=== PATIENT | female | born 1965 | race Caucasian/White ===

== ENCOUNTER 2017-02-19 10:11 | Emergency (ER) | payer BC ==
[2017-02-19] MEDS ORDERED: Ketorolac INJ* 30 MG/ML 1 ML VIAL IV ONE (10:52)
[2017-02-19] MEDS ORDERED: NS 0.9% 1000 ML* 1,000 ML IV ONE (10:52)
[2017-02-19 11:25] LABS: Hematocrit 44 % (35-47); Hemoglobin 14.7 g/dl (12.0-16.0); Mean Corpuscular HGB Conc 33 g/dl (31-36); Mean Corpuscular Hemoglobin 30 pg (27-31); Mean Corpuscular Volume 91 fL (80-97); Mean Platelet Volume 9 um3 (7.4-10.4); Red Blood Count 4.86 10^6/ul (4.0-5.4); Red Cell Distribution Width 13 % (10.5-15); White Blood Count 4.7 10^3/ul (3.5-10.8)
[2017-02-19] MEDS ORDERED: Ondansetron INJ* 2 MG/ML VIAL IV ONE (11:28)
--- NOTE | 2017-02-19 11:28 | ED ---
Abdominal Pain/Female - HPI Summary HPI Summary: Patient presents with left flank pain from Dr. Troncoso's office after a visit and exam today. She has had pain for three days that has increased. She has a history of kidney stones and thinks this could be another, but is also concerned that she has pain in her LLQ as well. She denies fever, chills, N/V/D , or blood in her urine. No fever, chills, SOB, or CP. - History of Current Complaint Chief Complaint: EDFlankPain Stated Complaint: LT FLANK PAIN Time Seen by Provider: 02/19/17 10:16 Hx Obtained From: Patient Hx Last Menstrual Period: 2013 ?: No Onset/Duration: Gradual Onset, Lasting Days, Still Present Timing: Constant Severity Initially: Moderate Severity Currently: Severe Pain Intensity: 8 Location: Discrete At: LLQ, Flank Radiates: No Character: Sharp Aggravating Factor(s): Nothing Alleviating Factor(s): Nothing Associated Signs and Symptoms: Positive: Nausea. Negative: Blood in Stool, Urinary Symptoms, Decreased Appetite, Vaginal Bleeding Allergies/Adverse Reactions: Allergies Allergy/AdvReac Type Severity Reaction Status Date / Time Codeine Allergy Severe RASH, Verified 02/19/17 10:19 SWELLING Iodinated Contrast Media Allergy Severe Difficulty Verified 02/19/17 10:19 [CONTRAST DYE] Breathing Latex Allergy Severe Hives Verified 02/19/17 10:19 Penicillins Allergy Severe Anaphylatic Verified 02/19/17 10:19 Shock Morphine Allergy Intermediate Rash Verified 02/19/17 10:19 Meclizine Allergy Anxiety Verified 02/19/17 10:19 Sulfa Antibiotics Allergy Rash And Verified 02/19/17 10:19 Itching Metoclopramide [From Reglan] AdvReac Anxiety Verified 02/19/17 10:19 Prochlorperazine AdvReac Anxiety Verified 02/19/17 10:19 [From Compazine] PMH/Surg Hx/FS Hx/Imm Hx Endocrine/Hematology History: Reports: Hx Thyroid Disease - ON DAILY MEDS Denies: Hx Anticoagulant Therapy, Hx Diabetes Cardiovascular History: Denies: Hx Congestive Heart Failure, Hx Deep Vein Thrombosis, Hx Hypertension , Hx Myocardial Infarction, Hx Pacemaker/ICD Respiratory History: Reports: Hx Asthma - INHALER PRN Denies: Hx Chronic Obstructive Pulmonary Disease (COPD), Hx Lung Cancer, Hx Pneumonia, Hx Pulmonary Embolism GI History: Denies: Hx Gall Bladder Disease, Hx Gastrointestinal Bleed, Hx Ulcer, Hx Urosepsis History: Reports: Hx Kidney Stones - HX OF Denies: Hx Renal Disease Comment Only: Other Problems/Disorders - DENIES ANY PAIN OR PROBLEMS R/T KIDNEY STONES Musculoskeletal History: Denies: Hx Osteoporosis Sensory History: Reports: Hx Contacts or Glasses - GLASSES Denies: Hx Hearing Aid Opthamlomology History: Reports: Hx Contacts or Glasses - GLASSES Neurological History: Reports: Hx Migraine - Hx OF, NONE IN YEARS, Other Neuro Impairments/Disorders - ADD Denies: Hx Dementia, Hx Seizures, Hx Transient Ischemic Attacks (TIA) Psychiatric History: Reports: Hx Anxiety, Hx Depression - daily meds Denies: Hx Panic Disorder, Hx Schizophrenia, Hx Bipolar Disorder - Surgical History Surgery Procedure, Year, and Place: 2013 [facility]&C [facility]. 2002 [place]. 2008 [place] [facility]. [place] [facility] [place] REMOVED [facility]. hysterectomy 2013. R ULNAR NERVE TRANSPOSITION 09/06/15 [facility]. LEFT LEG VEIN SURGERY 2012. 07/2014partial hysterectomy [facility]. 08/22/2014 removal of cyst and nerve on rt wrist [facility]. 2006 [place] [facility] [place] RT ELBOW ULNAR NERVE DECOMPRESSION [facility] Hx Anesthesia Reactions: No - Immunization History Date of Tetanus Vaccine: 2011 Date of Influenza Vaccine: None Infectious Disease History: No Infectious Disease History: Denies: Hx Clostridium Difficile, Hx Hepatitis, Hx Human Immunodeficiency Virus (HIV), Hx of Known/Suspected MRSA, Hx Shingles, Hx Tuberculosis, Hx Known/ Suspected VRE, Hx Known/Suspected VRSA, History Other Infectious Disease, Traveled Outside the [place] in Last 30 Days - Family History Known Family History: Positive: Cardiac Disease, Hypertension, Other - CVA - Social History Occupation: Unemployed Lives: With Family Alcohol Use: Daily Alcohol Amount: 1 or more glass wine/DAY Hx Substance Use: No Substance Use Type: Reports: None Hx Tobacco Use: Yes Smoking Status (MU): Former Smoker Type: Cigarettes Amount Used/How Often: 1PPD+ 5 YRS Length of Time of Smoking/Using Tobacco: 5 years Have You Smoked in the Last Year: No Review of Systems Negative: Fever, Chills Positive: Abdominal Pain - LLQ, Nausea. Negative: Vomiting, Diarrhea Positive: flank pain. Negative: dysuria, discharge, frequency, hematuria All Other Systems Reviewed And Are Negative: Yes Physical Exam Triage Information Reviewed: Yes Vital Signs On Initial Exam: Initial Vitals Temp Pulse Resp BP Pulse Ox 98.3 F 85 18 159/100 100 02/19/17 10:20 02/19/17 10:20 02/19/17 10:20 02/19/17 10:20 02/19/17 10:20 Vital Signs Reviewed: Yes Appearance: Positive: Well-Appearing, Pain Distress, Thin Skin: Positive: Warm, Skin Color Reflects Adequate Perfusion, Dry, Soft Head/Face: Positive: Normal Head/Face Inspection Eyes: Positive: EOMI, ERIK, Conjunctiva Clear ENT: Positive: Hearing grossly normal, Pharynx normal Neck: Positive: Supple, Nontender, No Lymphadenopathy Respiratory/Lung Sounds: Positive: Clear to Auscultation, Breath Sounds Present Cardiovascular: Positive: RRR Abdomen Description: Positive: Soft, CVA Tenderness (L) - mild, Guarding. Negative: Nontender - LLQ pain, CVA Tenderness (R), Distended, Hepatomegaly, Pulsatile Mass, Splenomegaly Bowel Sounds: Positive: Present Musculoskeletal: Positive: Strength/ROM Intact. Negative: Edema Left, Edema Right Neurological: Positive: Sensory/Motor Intact, Alert, Oriented to Person Place, Time, NV Bundle Intact Distally, Normal Gait Psychiatric: Positive: Affect/Mood Appropriate AVPU Assessment: Alert - Stephan Coma Scale Coma Scale Total: 15 Diagnostics - Vital Signs Vital Signs Temp Pulse Resp BP Pulse Ox 02/19/17 10:41 98.0 F 85 20 159/100 100 02/19/17 10:20 98.3 F 85 18 159/100 100 - Laboratory Result Diagrams: 02/19/17 11:00 02/19/17 11:00 Lab Statement: Any lab studies that have been ordered have been reviewed, and results considered in the medical decision making process. - Radiology No standard instances Xray Interpretation: No Acute Changes Radiology Interpretation Completed By: Radiologist - CT No standard instances CT Interpretation: No Acute Changes CT Interpretation Completed By: Radiologist Re-Evaluation - Re-Evaluation First Eval Re-Evaluation Time: 11:30 Change: Unchanged Comment: pain has not improved. Patient mentions that a medication that starts with a "D" always helps with her pain. Second Eval Re-Evaluation Time: 12:25 Change: Improved Comment: Patient resting comfortably in bed. Abdominal Pain Fem Course/Dx - Course Course Of Treatment: I discussed this patient's situation with Dr. Troncoso and Dr. Gaviria. The patient's labs and studies are negative for acute changes, except for a positive urine for a UTI. She will be treated and discharged home to follow-up with her PCP. - Diagnoses Differential Diagnosis: Positive: Bowel Obstruction, Constipation, Diverticulitis, Hepatitis, Irritable Bowel Syndrome, Ovarian Cyst, Urinary Tract Infection Provider Diagnoses: Abdominal pain - Provider Notifications Discussed Care Of Patient With: Dr. Troncoso, general surgery; Dr. Gaviria, ED attending. Discharge - Discharge Plan Condition: Stable Disposition: HOME Prescriptions: Nitrofurantoin Monohyd Macro [Macrobid] 100 mg PO BID #9 cap Patient Education Materials: Urinary Tract Infection in Women (ED) Referrals: Ignacio Garcias MD [Primary Care Provider] - Additional Instructions: Your CT scan, lab work and x-ray were negative for acute findings today. Please take the antibiotics prescribed to treat your urinary tract infection and call your PCP today for a follow-up appointment in 2-3 days. Return to the emergency department if symptoms worsen.
[2017-02-19] MEDS ORDERED: HYDROmorphone* 1 MG/ML 1 ML SYR IV SLOW PU ONE (11:31)
[2017-02-19 11:36] LABS: Albumin 4.6 g/dL (3.2-5.2); BUN/Creatinine Ratio 17.8 (8-20); Calcium 9.5 mg/dL (8.6-10.3); EGFR African American 85.6 (>60); EGFR Non-African American 66.5 (>60); Globulin 2.9 g/dL (2-4); Potassium 4.8 mmol/L (3.5-5.0); Total Bilirubin 1.2 mg/dL (0.2-1.0); Total Protein 7.5 g/dL (6.4-8.9)
[2017-02-19 12:34] LABS: Urine Bacteria Absent (Absent); Urine Bilirubin Negative (Negative); Urine Glucose Negative (Negative); Urine Nitrite Positive (Negative)
--- NOTE | 2017-02-19 13:01 | RAD ---
CLINICAL HISTORY: Left flank pain COMPARISON: January 03, 2016 TECHNIQUE: Multiple contiguous axial CT scans were obtained of the abdomen and pelvis, without intravenous contrast enhancement. Coronal and sagittal multiplanar reformations are submitted for review. Oral contrast was not administered. FINDINGS: The study is limited by the lack of intravenous contrast. This limits evaluation of the solid organs and vasculature. LUNG BASES: The lung bases are clear. LIVER: The liver is normal in shape, size, contour, and attenuation. BILE DUCTS: There is no intrahepatic or extrahepatic biliary dilatation. GALLBLADDER: The gallbladder is normal, without pericholecystic inflammatory change. PANCREAS: The pancreas is normal, without mass or ductal dilatation. SPLEEN: Normal in size and appearance. UPPER GI TRACT: Evaluation of the gastrointestinal tract is limited by incomplete gastric distention. The upper GI tract is unremarkable. SMALL BOWEL AND MESENTERY: The small bowel is normal in contour, course, and caliber. There is no obstruction or dilatation. COLON: The colon is normal in contour, course, caliber. There is no pericolonic inflammatory change. ADRENALS: Normal bilaterally. KIDNEYS: There are multiple renal cortical defects. There are dystrophic calcific lesion versus small calyceal stones of the left kidney. These are stable in the previous examination. There is no appreciable hydronephrosis or obvious ureteral stone BLADDER: The bladder is incompletely distended but is grossly normal. PELVIC ORGANS: The pelvic organs are not visualized. AORTA: The aorta is normal. IVC: Unremarkable LYMPH NODES: There is no lymphadenopathy by size criteria. ABDOMINAL WALL: There is no evidence for abdominal wall hernia. There is postsurgical change to the right inguinal region suggestive of previous hernia repair BONES AND SOFT TISSUES: There are mild diffuse degenerative changes. OTHER: None IMPRESSION: STABLE SMALL RENAL CALCULI ON THE LEFT WITHOUT HYDRONEPHROSIS.
[2017-02-19] MEDS ORDERED: Ciprofloxacin TAB* 500 MG PO ONE (13:05)
[2017-02-19] MEDS ORDERED: Nitrofurantoin Macrocrystals* 50 MG CAP PO ONE (13:16)
--- NOTE | 2017-02-19 14:42 | RAD ---
Indication: Abdominal pain, small bowel obstruction Flat and upright views of the abdomen demonstrates no free air. Moderately distended loops of small bowel are noted. No free air is identified. Patient is status post cholecystectomy. IMPRESSION: Mildly distended loops of small bowel without air-fluid levels.
[2017-02-19 14:57] VITALS: BP 126/72
--- NOTE | 2017-02-22 10:19 | PN ---
Progress Note - Progress Note Note: Urine culture grew E.Coli Patient placed on Macrobid. Sensitive to medication. Nothing further at this time. Penelope Ortiz PA-C
== END 2017-02-19 14:56 | disposition home or self-care (01) ==
LOC: ED 10:11
DX: R10.32 Left lower quadrant pain (principal); F17.210 Nicotine dependence, cigarettes, uncomplicated; Z88.5 Allergy status to narcotic agent; Z88.0 Allergy status to penicillin; Z88.2 Allergy status to sulfonamides; Z87.442 Personal history of urinary calculi; J45.909 Unspecified asthma, uncomplicated; F41.9 Anxiety disorder, unspecified; F32.9 Major depressive disorder, single episode, unspecified; Z87.891 Personal history of nicotine dependence; E07.9 Disorder of thyroid, unspecified; N20.0 Calculus of kidney
CPT/HCPCS: 36415; 74000; 74176; 80053; 81003; 81015; 85025; 87077; 87086; 87186; 96360; 96374; 96375; 99282; A9270-GY; J1170; J1885; J2405

== ENCOUNTER 2017-04-18 07:35 | Emergency (ER) | payer BC ==
[2017-04-18 07:43] VITALS: BP 127/97
--- NOTE | 2017-04-18 08:30 | UC ---
Skin Complaint HPI - History of Current Complaint Hx Obtained From: Patient Hx Last Menstrual Period: 2013 ?: No Onset/Duration: Gradual Onset - started 2-3 days ago with poison josey on L lower leg, after scratching skin it looks red and swollen today. is becoming more painful Onset Severity: Mild Current Severity: Moderate Location: Discrete - L lower ant leg Character: Swelling, Pruritus, Pain, Redness Aggravating: Touch Alleviating: Nothing Associated Signs & Symptoms: Positive: Negative <Rl Turner - Last Filed: 04/18/17 08:32> <Terri Cano - Last Filed: 04/18/17 08:58> - History of Current Complaint Chief Complaint: UCLowerExtremity Stated Complaint: SWOLLEN LEG - Allergy/Home Medications Allergies/Adverse Reactions: Allergies Allergy/AdvReac Type Severity Reaction Status Date / Time Codeine Allergy Severe RASH, Verified 02/19/17 10:19 SWELLING Iodinated Contrast Media Allergy Severe Difficulty Verified 02/19/17 10:19 [CONTRAST DYE] Breathing Latex Allergy Severe Hives Verified 02/19/17 10:19 Penicillins Allergy Severe Anaphylatic Verified 02/19/17 10:19 Shock Morphine Allergy Intermediate Rash Verified 02/19/17 10:19 Meclizine Allergy Anxiety Verified 02/19/17 10:19 Sulfa Antibiotics Allergy Rash And Verified 02/19/17 10:19 Itching Metoclopramide [From Reglan] AdvReac Anxiety Verified 02/19/17 10:19 Prochlorperazine AdvReac Anxiety Verified 02/19/17 10:19 [From Compazine] Review of Systems Constitutional: Negative Skin: Rash Respiratory: Negative Cardiovascular: Negative Gastrointestinal: Negative Neurovascular: Negative Musculoskeletal: Negative Psychological: Negative All Other Systems Reviewed And Are Negative: Yes <Rl Turner - Last Filed: 04/18/17 08:32> PMH/Surg Hx/FS Hx/Imm Hx Previously Healthy: Yes Endocrine History: Thyroid Disease Psychological History: Anxiety, Other - ADHD Other Psychological History: ADHD Other History Of: Negative For: HIV, Hepatitis B, Hepatitis C, Anticoagulant Therapy - Surgical History Surgical History: Yes Surgery Procedure, Year, and Place: 2012 D&C [facility]. 2002 [place]. 2008 left foot surgery [facility]. 2005 TUBAL LIGATION, [facility]. 2005 GALLBLADDER REMOVED [facility]. hysterectomy 2014. R ULNAR NERVE TRANSPOSITION 09/06/15 [facility]. LEFT LEG VEIN SURGERY 2012. 07/2014partial hysterectomy [facility]. 08/22/2014 removal of cyst and nerve on rt wrist [facility]. 2006 UTERAL stents, [facility]. 07/12/15 RT ELBOW ULNAR NERVE DECOMPRESSION [facility] - Family History Known Family History: Positive: Cardiac Disease, Hypertension, Other - CVA - Social History Occupation: Employed Full-time - [employer] center Lives: With Family Alcohol Use: Daily Alcohol Amount: 1 or more glass wine/DAY Substance Use Type: None Smoking Status (MU): Former Smoker Type: Cigarettes Amount Used/How Often: 1PPD+ 5 YRS Length of Time of Smoking/Using Tobacco: 5 years Have You Smoked in the Last Year: No When Did the Patient Quit Smoking/Using Tobacco: 1988 - Immunization History Most Recent Influenza Vaccination: never Most Recent Tetanus Shot: unknown Most Recent Pneumonia Vaccination: never <Rl Turner - Last Filed: 04/18/17 08:32> Physical Exam Triage Information Reviewed: Yes Appearance: Well-Appearing, No Pain Distress, Well-Nourished Vital Signs: Initial Vital Signs Temp 97 F 04/18/17 07:37 Pulse 85 04/18/17 07:37 Resp 16 04/18/17 07:37 BP 127/97 04/18/17 07:37 Pulse Ox 100 04/18/17 07:37 Vital Signs Reviewed: Yes Respiratory Exam: Normal Cardiovascular Exam: Normal Musculoskeletal Exam: Normal Neurological Exam: Normal Psychological Exam: Normal Skin: Positive: rashes - poison josey lower left leg. small area redness and minor swelling anterior lower leg with small abrasion (scratched) poison josey. no streaking or drainage <Rl Turner - Last Filed: 04/18/17 08:32> Vital Signs: Initial Vital Signs Temp 97 F 04/18/17 07:37 Pulse 85 04/18/17 07:37 Resp 04/18/17 07:37 BP 127/97 04/18/17 07:37 Pulse Ox 100 04/18/17 07:37 <Terri Cano - Last Filed: 04/18/17 08:58> Course/Dx - Differential Diagnoses - Skin Complaint Differential Diagnoses: Abscess, Cellulitis, Poison Josey - Diagnoses Provider Diagnoses: poison josey. cellulitis <Rl Turner - Last Filed: 04/18/17 08:32> Discharge <Rl Turner - Last Filed: 04/18/17 08:32> <Terri Cano - Last Filed: 04/18/17 08:58> - Discharge Plan Condition: Stable Disposition: HOME Prescriptions: Clindamycin CAP* [Cleocin 150 MG CAP*] 150 mg PO QID #28 cap Referrals: Ignacio Garcias MD [Primary Care Provider] - 2 Days (for recheck) Additional Instructions: elevate leg and apply warm packs three times daily take antibiotic as directed use benadryl gel to poison josey as directed ibuprofen 600mg every 6 hours as needed for pain Attestation Statement User Type: Provider - I was available for consult. This patient was seen by the [facility]. The patient was not presented to, seen by, or examined by me. -Wilmer <Terri Cano - Last Filed: 04/18/17 08:58>
== END 2017-04-18 08:33 | disposition home or self-care (01) ==
LOC: UCEAST 07:35
DX: L23.7 Allergic contact dermatitis due to plants, except food (principal); L03.116 Cellulitis of left lower limb; Z88.0 Allergy status to penicillin; Z88.2 Allergy status to sulfonamides; Z88.5 Allergy status to narcotic agent; Z91.041 Radiographic dye allergy status; Z91.040 Latex allergy status; E07.9 Disorder of thyroid, unspecified; F41.9 Anxiety disorder, unspecified; F90.9 Attention-deficit hyperactivity disorder, unspecified type; Z90.49 Acquired absence of other specified parts of digestive tract; Z90.710 Acquired absence of both cervix and uterus; Z87.891 Personal history of nicotine dependence
CPT/HCPCS: 99212; G0463

== ENCOUNTER 2017-04-29 12:16 | Emergency (ER) | payer BC ==
--- NOTE | 2017-04-29 12:46 | UC ---
Cardiac HPI - HPI Summary HPI Summary: complain to waking up this morning nasal congestion, sneezing and cough felt short of breath when she was walking up the stairs, used her inhaler -xoponex without relief went to work and started to feel shortness of breath again- can't talk well and completed sentence without getting short of breath used her xopenex inhaler without relief again hears wheezing in her chest , feels some chest over her sternum, a tight heavy feeling, difficult to breath out denies fever but had some chills this morning - took tylenol this morning refuses to take any steroid medication - History of Current Complaint Hx Obtained From: Patient <Janett Dougherty - Last Filed: 04/29/17 14:59> <Terri Cano - Last Filed: 04/30/17 08:12> - History of Current Complaint Chief Complaint: UCRespiratory Stated Complaint: SOB ASTHMA Time Seen by Provider: 04/29/17 12:39 - Allergy/Home Medications Allergies/Adverse Reactions: Allergies Allergy/AdvReac Type Severity Reaction Status Date / Time Codeine Allergy Severe RASH, Verified 04/29/17 12:28 SWELLING Iodinated Contrast Media Allergy Severe Difficulty Verified 04/29/17 12:28 [CONTRAST DYE] Breathing Latex Allergy Severe Hives Verified 04/29/17 12:28 Penicillins Allergy Severe Anaphylatic Verified 04/29/17 12:28 Shock Morphine Allergy Intermediate Rash Verified 04/29/17 12:28 Meclizine Allergy Anxiety Verified 04/29/17 12:28 Sulfa Antibiotics Allergy Rash And Verified 04/29/17 12:28 Itching Metoclopramide [From Reglan] AdvReac Anxiety Verified 04/29/17 12:28 Prochlorperazine AdvReac Anxiety Verified 04/29/17 12:28 [From Compazine] Home Medications: Home Medications Wudxpum-Xsdsldcjiwcuj-Okgenagw [Excedrin Extra Strength 250-250-65 mg] 1 tab PO DAILY PRN 04/29/17 [History Confirmed 04/29/17] PMH/Surg Hx/FS Hx/Imm Hx Previously Healthy: Yes Respiratory History: Asthma Other History Of: Negative For: HIV, Hepatitis B, Hepatitis C, Anticoagulant Therapy - Surgical History Surgical History: Yes Surgery Procedure, Year, and Place: 2012 [place] [facility] [place] 2008 [facility] [place] [facility]. 2005 TUBAL LIGATION, [facility]. 2005 GALLBLADDER REMOVED [facility]. hysterectomy 2013. R ULNAR NERVE TRANSPOSITION 09/06/15 [facility]. LEFT LEG VEIN SURGERY 2012. 07/2014partial hysterectomy [facility]. 08/22/2014 removal of cyst and nerve on rt wrist [facility]. 2006 UTERAL stents, [facility]. 07/12/15 RT ELBOW ULNAR NERVE DECOMPRESSION [facility] - Family History Known Family History: Positive: Cardiac Disease, Hypertension, Diabetes, Other - CVA - Social History Occupation: Employed Full-time Lives: With Family Alcohol Use: Occasionally Alcohol Amount: 1 or more glass wine/DAY Substance Use Type: None Smoking Status (MU): Former Smoker Type: Cigarettes Amount Used/How Often: 1PPD+ 5 YRS Length of Time of Smoking/Using Tobacco: 5 years Have You Smoked in the Last Year: No When Did the Patient Quit Smoking/Using Tobacco: 1988 - Immunization History Most Recent Influenza Vaccination: never Most Recent Tetanus Shot: unknown Most Recent Pneumonia Vaccination: never <Janett Dougherty - Last Filed: 04/29/17 14:59> Review of Systems Constitutional: Chills Skin: Negative Eyes: Negative ENT: Negative Respiratory: Shortness Of Breath, Cough Cardiovascular: Chest Pain Gastrointestinal: Negative Genitourinary: Negative Motor: Negative Neurovascular: Negative Musculoskeletal: Negative Neurological: Negative Psychological: Negative All Other Systems Reviewed And Are Negative: Yes <Janett Dougherty - Last Filed: 04/29/17 14:59> Physical Exam Triage Information Reviewed: Yes Appearance: No Pain Distress, Well-Nourished Vital Signs: Initial Vital Signs Temp 99.2 F 04/29/17 12:24 Pulse 97 04/29/17 12:24 Resp 18 04/29/17 12:24 BP 191/111 04/29/17 12:24 Pulse Ox 100 04/29/17 12:24 Vital Signs Reviewed: Yes Eyes: Positive: Conjunctiva Clear ENT: Positive: Pharyngeal erythema, Nasal congestion, Nasal drainage, TMs normal Dental: Positive: Cervical Lymphadenopathy Respiratory: Positive: Chest non-tender, No accessory muscle use, Respiratory distress, Wheezing - in lower lobes Cardiovascular: Positive: RRR, No Murmur, Pulses Normal, Brisk Capillary Refill Abdomen Description: Positive: Nontender, Soft Bowel Sounds: Positive: Present Musculoskeletal: Positive: No Edema Neurological: Positive: Alert Psychological Exam: Normal Skin Exam: Normal <Janett Dougherty - Last Filed: 04/29/17 14:59> Vital Signs: Initial Vital Signs Temp 99.2 F 04/29/17 12:24 Pulse 97 04/29/17 12:24 Resp 18 04/29/17 12:24 BP 191/111 04/29/17 12:24 Pulse Ox 100 04/29/17 12:24 <Terri Cano - Last Filed: 04/30/17 08:12> Diagnostics - EKG Cardiac Rate: Tachycardia Cardiac Rhythm: Sinus: Normal Ectopy: None <Janett Dougherty - Last Filed: 04/29/17 14:59> Re-Evaluation - Re-Evaluation First Eval Re-Evaluation Time: 14:13 Change: Improved Comment: less wheezing throughout. denies any chest pain /pressure at this time <Janett Dougherty - Last Filed: 04/29/17 14:59> - Assessment/Plan Course Of Treatment: exam completed. pt feels relief of symptoms of shortness of breath and chest pain after albuterol tretament. discussed importance of followup with Dr Garcias and when to seek emergent care - Differential Diagnoses - Chest Pain Differential Diagnosis/HQI/PQRI: Lower Respiratory Infection - Clinical Impression Provider Diagnoses: asthma exacerbation - Physician Notifications Discussed Patient Care With: Terri Cano Time Discussed With Above Provider: 14:21 <Janett Dougherty - Last Filed: 04/29/17 14:59> Discharge <Janett Dougherty - Last Filed: 04/29/17 14:59> <Terri Cano - Last Filed: 04/30/17 08:12> - Discharge Plan Condition: Stable Disposition: HOME Prescriptions: Albuterol HFA INHALER* [Ventolin HFA Inhaler*] 2 puff INH Q4H PRN #1 mdi PRN Reason: Wheezing Patient Education Materials: Asthma (ED), Bronchospasm (ED) Forms: *Work Release Referrals: Ignacio Garcias MD [Primary Care Provider] - Additional Instructions: please make followup appt with Dr Garcias in 1-2 days Use your albuterol inhaler every 4-6 hours when needed for wheezing, shortness of breath or uncontrolled coughing. Increase fluids and rest Take acetaminophen or ibuprofen for fever or pain Please review your discharge instructions. If your symptoms do not improve please call your primary care provider or return to urgent care. Attestation Statement User Type: Provider - I was available for consult. This patient was seen by the [facility]. The patient was not presented to, seen by, or examined by me. -Wilmer <Terri Cano - Last Filed: 04/30/17 08:12>
[2017-04-29] MEDS ORDERED: Levalbuterol 1.25MG/0.5ML NEB INH ONE (12:55)
[2017-04-29] MEDS ORDERED: Levalbuterol 0.63MG/3ML NEB INH ONE (13:12)
[2017-04-29 13:34] VITALS: BP 177/95
[2017-04-29] MEDS ORDERED: Albuterol 2.5 MG/3 ML NEB.SOL* (0.083%) INH ONE (13:39)
== END 2017-04-29 14:29 | disposition home or self-care (01) ==
LOC: UCEAST 12:16
DX: J45.901 Unspecified asthma with (acute) exacerbation (principal); Z87.891 Personal history of nicotine dependence
CPT/HCPCS: 87651; 93005; 99213; A9270-GY; G0463

== ENCOUNTER 2017-08-07 14:57 | Inpatient (IN) | payer BC ==
[2017-08-07] MEDS ORDERED: NS 0.9% 1000 ML* 1,000 ML IV ONE (15:49)
[2017-08-07] MEDS ORDERED: fentaNYL* 50 MCG/ML 2 ML VIAL (100 MCG VIAL) IV SLOW PU ONE ×2 (15:53→17:40)
[2017-08-07] MEDS ORDERED: Ondansetron INJ* 2 MG/ML VIAL IV ONE (15:53)
--- NOTE | 2017-08-07 16:50 | RAD ---
Indication: Syncopal episode. Comparison: April 02, 2016 Technique: Noncontrast CT vertex of skull through foramen magnum. Report: The sulci, ventricles, and basal cisterns are normal for age. Pagan matter white matter differentiation is preserved without evidence for edema. No intra or extra axial hemorrhage, mass, or fluid collection detected. Unchanged minimal calcification at the bilateral basal ganglia. Unremarkable visualized orbital contents. Unremarkable calvarium and skull base. Unremarkable scalp. The visualized paranasal sinuses and mastoid air spaces are clear. IMPRESSION: No acute intracranial process evident.
--- NOTE | 2017-08-07 16:50 | RAD ---
INDICATION: Syncopal episode. COMPARISON: October 14, 2015 CT. TECHNIQUE: Multidetector CT images foramen magnum to lung apices without contrast. Multiplanar reformation. REPORT: Normal vertebral alignment accounting for exam positioning without spondylolisthesis or subluxation at any level. Negative for cervical vertebral body or posterior element fracture. Negative for paravertebral hematoma. Multilevel degenerative spondylosis and mild facet joint osteoarthritis. At C4-C5 there is moderately severe disc space narrowing and mild vertebral endplate osteophytosis. Negative for significant central canal stenosis. Uncinate process spurring results in mild RIGHT and moderate LEFT foraminal stenosis. At C5-C6 there is moderately severe disc space narrowing. Mild dorsal disc osteophyte complex. Negative for significant central canal stenosis. Uncinate process spurring and facet joint osteoarthritis results in mild RIGHT and moderate LEFT foraminal stenosis. At C6-C7 there is moderately severe disc space narrowing and mild dorsal disc osteophyte complex without significant resulting central canal stenosis. Uncinate process spurring results in mild LEFT foraminal stenosis. IMPRESSION: 1. No traumatic cervical spine injury evident. 2. Only mild interval worsening of multilevel degenerative spondylosis and posterior element osteoarthritis with associated multilevel foraminal stenosis compared with the October 14, 2015 exam.
--- NOTE | 2017-08-07 17:40 | RAD ---
INDICATION: Syncope. COMPARISON: February 19, [address] October 14, 2015 TECHNIQUE: Dual energy PA and routine lateral views of the chest were obtained. REPORT: Severely elevated lung volumes and both diffuse mild prominence of the interstitial markings and patchy rarefaction of the mid to upper lung zone interstitial markings. The caudal aspect of the posterior costophrenic angles are incompletely included in the [id number] on the lateral view. No focal pulmonary lesion, compelling alveolar consolidation, pleural effusion, pneumothorax. The heart, pulmonary vasculature, and mediastinal contours are unremarkable. IMPRESSION: Stigmata of obstructive lung disease. No acute pulmonary or cardiac process evident.
[2017-08-07] MEDS ORDERED: Ketorolac INJ* 30 MG/ML 1 ML VIAL IV PUSH ONE (17:42)
--- NOTE | 2017-08-07 17:42 | RAD ---
Indication: Syncopal episode. Severe tailbone pain. Unable to sit or apply pressure. Comparison: February 19, 2017 CT. Technique: AP and lateral views sacrum and coccyx. Report: There is a grossly nondisplaced transverse fracture through the fifth sacral vertebral body new compared with the February 19, 2017 CT. Negative for significant thickening of the presacral fat space or appreciable overlying soft tissue swelling. No additional fracture or articular malalignment. RIGHT lower quadrant sutures noted. IMPRESSION: Nondisplaced transverse fracture through the fifth sacral vertebral body.
[2017-08-07 17:47] LABS: Hematocrit 42 % (35-47); Mean Corpuscular HGB Conc 34 g/dl (31-36); Mean Corpuscular Hemoglobin 31 pg (27-31); Mean Corpuscular Volume 93 fL (80-97); Mean Platelet Volume 10 um3 (7.4-10.4); Red Blood Count 4.46 10^6/ul (4.0-5.4); Red Cell Distribution Width 14 % (10.5-15); White Blood Count 8.2 10^3/ul (3.5-10.8)
[2017-08-07 17:59] LABS: ALT 27 U/L (7-52); AST 32 U/L (13-39); Albumin 4.5 g/dL (3.2-5.2); Alkaline Phosphatase 71 U/L (34-104); Anion Gap 5 mmol/L (2-11); BUN/Creatinine Ratio 13.5 (8-20); Blood Urea Nitrogen 12 mg/dL (6-24); CO2 Carbon Dioxide 31 mmol/L (22-32); Calcium 9.1 mg/dL (8.6-10.3); Chloride 102 mmol/L (101-111); EGFR African American 86.3 (>60); EGFR Non-African American 67.1 (>60); Globulin 2.8 g/dL (2-4); Glucose 89 mg/dL (70-100); Potassium 3.9 mmol/L (3.5-5.0); Sodium 138 mmol/L (133-145); Total Protein 7.3 g/dL (6.4-8.9)
[2017-08-07 18:12] LABS: Alcohol < 10 mg/dL (<10)
[2017-08-07 18:25] LABS: TSH (Thyroid Stimulating Horm) 3.18 mcIU/mL (0.34-5.60)
[2017-08-07] MEDS ORDERED: Tetan/Diph/Pertus SYR(Tdap)* 0.5 ML SYR(BOOSTRIX) use SYR IM ONE (18:28)
[2017-08-07 18:38] LABS: Urine Bacteria Absent (Absent); Urine Bilirubin Negative (Negative); Urine Glucose Negative (Negative); Urine Nitrite Negative (Negative)
[2017-08-07 18:58] LABS: Benzodiazepine Urine Screen None Detected (None Detect)
[2017-08-07] MEDS ORDERED: LORazepam INJ* 2 MG/ML 1 ML VIAL IV PUSH PRN (19:16)
[2017-08-07] MEDS ORDERED: Albuterol HFA INHALER* 8 gm MDI INH PRN (19:37)
[2017-08-07] MEDS ORDERED: Montelukast Sodium TAB* 10 MG PO PRN (19:37)
[2017-08-07] MEDS ORDERED: HYDROmorphone TAB* 4 MG ONE (19:38)
[2017-08-07] MEDS: HYDROmorphone TAB* 4 MG PO PRN (19:39)
[2017-08-07] MEDS ORDERED: Gadoteridol* (CONTRAST) 279.3 MG/ML 10 ML IV ONE (20:01)
[2017-08-07] MEDS ORDERED: LORazepam INJ* 2 MG/ML 1 ML VIAL IV PUSH ONE (20:55)
--- NOTE | 2017-08-07 23:25 | HP ---
HISTORY AND PHYSICAL: DATE OF ADMISSION: 08/07/17 ADMITTING PROVIDER: Immanuel Mendosa MD CHIEF COMPLAINT: Loss of consciousness with observed seizure-like activity. HISTORY OF PRESENT ILLNESS: Janeen Roberts is a 52-year-old female with past medical history of asthma, anxiety, depression, who was at work on the day of admission, talking to a coworker when she suddenly stopped talking, became rigid , fell straight backward on to a slate floor, hitting her head producing a laceration with bleeding. The patient's hands were clenched. Her legs and arms were locked, rigid, and were violently shaking. Her eyes were open and then rolled back into her head. She began frothing at the mouth. Her pupils were pinpoint. This was the description of her coworker, Nahed, who witnessed the entire event. Episode lasted for approximately 1 minute while a bystander called EMS. Nahed reports that the patient became apneic briefly and then closed her eyes and began snoring. She eventually came to, but her attempts at verbal communication were not intelligible. She was very confused initially, did not recognize the situation, where she was, who she was, or who Nahed was. By the time EMS arrived, she began to be able to talk more. However, her recollection of the events is basically completely missing. Of note, the patient in February of 2015 had an episode where she abruptly lost consciousness while standing in the kitchen of an rental unit, hitting her head and eventually requiring 8 stiches. This was an unwitnessed event. She was only able to piece together parts of the history many hours later after, in a haze, she had driving herself home and looking at herself in the mirror and recognizing the clothes that she had put on earlier this morning was able to piecing together that she must have fallen and found herself waking up on the kitchen floor. Now, the patient has recently been undergoing a lot of stress in her life given the prolonged divorce and custody driver over their 15- year- old son. She has lost approximately 15 pounds this summer despite healthy appetite. She was put on Valium 5 mg every 8 hours over this summer, but the last dose was approximately 1 month ago in June. Of note, the patient is also on Wellbutrin 300 mg a day for her depression, which can be contraindicated for people with seizure disorder. The patient denies chest pain , shortness of breath, fevers, chills, nausea, vomiting, blood in bowel movements, or vision changes. No cessation of alcohol recently, celebrated with 's trip return with few cocktails night prior to episode. The patient was imaged in the ED and found to have a fracture of her lumbar spine 5th vertebrae transverse fracture, nondisplaced. CT head showed no acute process. C- spine demonstrated only mild interval worsening of multilevel degenerative spondylosis and posterior element osteoarthritis with associated multilevel foraminal stenosis compared with the 10/14/15 examination. Neurology was consulted (Dr. Kaur) who recommended getting an MRI of brain with and without contrast. EEG and Keppra 500 mg b.i.d. with an additional Ativan 2 mg IV q.5 hours p.r.n. for seizure activity. PAST MEDICAL HISTORY: Asthma, depression, and anxiety. HOME MEDICATIONS 1. Wellbutrin 300mg daily 2. singular 10mg po daily (does not take daily though) 3. levothyroxine 150mg daily 4. albuterol 2 puff INH q4h prn (rarely uses) 5. xopenex 1 dose inh daily prn (rarely uses) Of note recently stopped valium 5mg q8 and adderall PAST SURGICAL HISTORY: Ureteral reflux reversal (age 5) Appendectomy (age 16) Ex lap for ovarian cyst (age 18) cholecystectomy hysterectomy abdominal hernia repair SOCIAL HISTORY: Nonsmoker (formerly 10 pack years, quit ~25 years ago), drinks 1 wine glass nightly, occasionally more. No drug use. Remarried. Medical proxy is FAMILY MEDICAL HISTORY: No history of seizure disorder REVIEW OF SYSTEMS: A complete 14-point review of systems was negative except as per HPI, especially per Sindy positive for bilateral violent shaking motions of arms and legs, postictal confusion. The patient denies shortness of breath, chest pain, abdominal pain, although some tenderness with ventral hernia and her umbilical hernias, which are now more prominent given her significant weight loss over the summer. Positive for 12 to 15 pound weight loss despite intact appetite. Positive for chronic night sweats. No fevers or chills. PHYSICAL EXAMINATION GENERAL: No acute distress, but lying on side in the stretcher. VITAL SIGNS: Temperature 98.7, pulse rate 77, respiratory rate 20, satting 98% on room air, blood pressure 128/78. HEENT: Normocephalic, atraumatic, but with old blood coating back of head near laceration. Pupils equally round and reactive to light. Mucous membranes moist. No oropharynx lesions. NECK: Supple. No cervical lymphadenopathy. PULMONARY: Clear to auscultation bilaterally with no wheezing, rales, or rhonchi. CARDIAC: Regular rate and rhythm. No murmurs, rubs, or gallops. ABDOMEN: Soft, nontender, nondistended. No significant guarding, rebound, or peritoneal signs. No Beckham's sign. Some slight tenderness near ventral and periumbilical hernia, which do not contain bowel contents. EXTREMITIES: Left leg with chronic lymphedema changes and 1+ edema. Right leg , no edema. Pulses intact bilaterally. No rashes but slight scratch grier on left leg. MUSCULOSKELETAL: Tenderness to palpation of the lumbar region. NEURO: CN II-XII intact, strength and sensation intact. LABORATORY DATA: White count 8.2, hemoglobin 14.0, hematocrit 42, platelets 217. Sodium 138, potassium 3.9, chloride 102, carbon dioxide 31, BUN 12, creatinine 0.89, lactic acid 1.2, magnesium 2.0. LFTs within normal limits. TSH 3.18. UA, trace leukocyte esterase present, squamous epithelial cells. Toxicology, urine screen, none detected. Serum alcohol below 10. IMAGING: The sacrum coccyx, 2 view x-ray, which shows a nondisplaced transverse fracture to the 5th sacral vertebral body. ASSESSMENT AND PLAN: This is a 52-year-old female with past medical history of anxiety and depression, on Wellbutrin; asthma, well controlled, presenting with seizure-like events that were witnessed by coworker and additional history of loss of consciousness with potentially postictal confusion in February of 2015. These are concerning for a seizure-like activity. They were not preceded by any aura-like symptoms and the patient attest to good p.o. intake, although significant loss of weight recently. The patient is on a medication that can induce seizures with Wellbutrin and of note was recently stopped of Valium t.i.d. regimen for her anxiety related to her custody driver. We consulted Dr. Kaur of Neurology, who recommended getting a brain MRI with and without contrast , EEG, loaded with Keppra 500 mg twice a day and have as needed Ativan 2 mg IV q.5 minutes for seizures lasting more than 2 minutes. We will hold her Wellbutrin, continue her other asthma medications as needed, though of note rarely uses these days. She will be admitted to telemetry. For her nondisplaced transverse fracture to the 5th sacral vertebral body, we will control her pain with Dilaudid 4 mg p.o. q.6 hours p.r.n. with as needed Zofran for any associated nausea. No neurological deficits The patient is a full code and will be placed on a regular diet. [id number]/[facility] #: [id number] MTDD
[2017-08-07] MEDS: Ondansetron ODT TAB* 4 MG PO PRN (23:50)
[2017-08-07] MEDS: HYDROmorphone INJ* 2 MG/ML CARPUJECT SYRINGE IV PRN (23:50)
[2017-08-07] MEDS: levETIRAcetam TAB* 500 MG PO SCH (23:55)
[2017-08-08] MEDS: HYDROmorphone INJ* 2 MG/ML CARPUJECT SYRINGE IV PRN ×5 (04:46→23:12)
[2017-08-08] MEDS: Levothyroxine TAB* 150 MCG TAB PO SCH (06:11)
--- NOTE | 2017-08-08 06:50 | RAD ---
INDICATION: Seizure. COMPARISON: Comparison is made with a prior MRI of the brain from September 24, [address] brain from August 07, 2017. TECHNIQUE: Sagittal T1, coronal T1 and T2, axial T1, T2, susceptibility, FLAIR and diffusion-weighted images were obtained. In addition, axial, sagittal and coronal T1-weighted images were obtained following intravenous injection of 9 ml of ProHance contrast. Due to claustrophobia the patient was unable to be positioned in the standard head coil limiting the study. FINDINGS: The ventricles, cisterns and sulci appear to be within normal limits. No significant focal abnormality or mass effect is seen. No abnormal area of enhancement is seen. No areas of restricted diffusion are present. There is no evidence for infarct or hemorrhage. The visualized portion of the paranasal sinuses and mastoid air cells appear clear. IMPRESSION: SLIGHTLY LIMITED, OTHERWISE UNREMARKABLE MRI OF THE BRAIN.
[2017-08-08] MEDS: Ondansetron ODT TAB* 4 MG PO PRN ×3 (08:28→23:12)
[2017-08-08] MEDS ORDERED: HYDROmorphone INJ* 2 MG/ML CARPUJECT SYRINGE ONE (08:48)
[2017-08-08] MEDS: levETIRAcetam TAB* 500 MG PO SCH ×2 (08:54→19:15)
[2017-08-08 09:26] LABS: Hematocrit 36 % (35-47); Hemoglobin 12.4 g/dl (12.0-16.0); Mean Corpuscular HGB Conc 34 g/dl (31-36); Mean Corpuscular Hemoglobin 32 pg (27-31); Mean Corpuscular Volume 94 fL (80-97); Mean Platelet Volume 9 um3 (7.4-10.4); Red Blood Count 3.87 10^6/ul (4.0-5.4); Red Cell Distribution Width 13 % (10.5-15); White Blood Count 5.3 10^3/ul (3.5-10.8)
[2017-08-08 09:44] LABS: BUN/Creatinine Ratio 11.2 (8-20); Calcium 8.6 mg/dL (8.6-10.3); EGFR African American 86.3 (>60); EGFR Non-African American 67.1 (>60); Potassium 3.7 mmol/L (3.5-5.0)
[2017-08-08] MEDS: HYDROmorphone TAB* 4 MG PO PRN ×2 (11:52→19:16)
[2017-08-08] MEDS: diPHENhydraMINE PO* 25 MG PO PRN ×2 (13:00→23:18)
--- NOTE | 2017-08-08 13:11 | CONS ---
CONSULTATION NOTE: DATE OF CONSULT: 08/08/17 LOCATION: She is currently in bed 440. REASON FOR CONSULTATION: Likely seizure. HISTORY OF PRESENT ILLNESS: Ms. Roberts is a very nice 52-year-old female with no significant history of seizures, no febrile seizures in the past, no history of meningitis, several mild concussions in the past but no loss of consciousness , no family history of seizures. She did have one episode 2 years ago where she was standing and suddenly passed out. She is unclear how long she was out but she was very confused afterwards. She did hit her head at the time, but she was able to get in the car and drive some time afterwards. She states that she had a difficult time remembering what happened and piecing things together. She has been event free for the last 2 years but recently has been through a very traumatic custody driver. She has been under a tremendous amount of stress , has had depression and anxiety and has been on Wellbutrin 300 mg a day, which she states has helped her symptoms greatly. She has also noted that her appetite is diminished and some weight loss 10 pounds over the last few months. She has also been taking Valium in the past but not recently, apparently it has been several weeks since her last dose. She states that she does drink 1 to 2 drinks at night but denies any tobacco or drug use. Yesterday, she was at [facility] when she suddenly collapsed. Per the history and physical, it was witnessed and the person there states that she began rigid fell backwards on to a slate floor, hitting her head with some bleeding. Her hands were clinched, her arms were locked and rigid and she was shaking violently. Her eyes apparently rolled back into her head and she began frothing at the mouth. Apparently, her pupils were pinpoint. This lasted for approximately one minute and she was confused afterwards. Apparently, there was some apneic episode as well during the event and she began to snore. When she arose, she was having difficulty communicating, there was no reported tongue- biting. No bladder or bowel incontinence. By the time EMS got there, she was more awake but had poor recollection of the event. In the ER it was found that she also had a fracture of her sacrum and she had a laceration in the posterior scalp. Cervical spine CT was done, which showed no significant traumatic injury, some degenerative disk disease noted. She had a x-ray of her sacrum and coccyx, which showed nondisplaced transverse fracture through the 5th sacral vertebral body. Brain CT done initially reviewed was negative. MRI of the brain done subsequently last night was negative for any acute issues. Her lab work, CBC with diff looked good, a complete metabolic panel was normal. This morning, her BMP is normal. U- tox was negative. PAST MEDICAL HISTORY: As noted above. She also has some asthma. CURRENT MEDICATIONS: Include, 1. Albuterol. 2. Hydromorphone. 3. Keppra 500 mg p.o. b.i.d. 4. Synthroid. 5. Ativan p.r.n. 6. Singulair. 7. Zofran. 8. Her Wellbutrin has been stopped. ALLERGIES: To CODEINE, IODINATED CONTRAST MEDIUM, LATEX, PENICILLIN. FAMILY HISTORY: Noncontributory. No history of seizures. SOCIAL HISTORY: Occasional alcohol is noted. No tobacco or drug use reported. 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 REVIEW OF SYSTEMS: Fourteen organ systems as noted above, in addition she has some pain in the back of her head. She has pain in her low back with movement. She noted some tingling in her mouth after her MRI and after she received her dose of Keppra. This morning she had a dose of Keppra and notes some tingling but no shortness of breath, no swallowing difficulties, no rash, no other evidence of anaphylaxis. PHYSICAL EXAM: Vital Signs: Temp of 98.4, blood pressure 107/65, pulse is 69, respiratory rate of 16, pulse ox 98%. General: She is a well-nourished, well- developed female, lying in her bed, sleeping but awakens easily. She is pleasant, well dressed, well groomed. HEENT: She is normocephalic. She has a laceration on the back of her head, which is clean, dry and intact. Mucous membranes are moist. Oropharynx is clear. Nares are patent. Neck is somewhat stiff. Chest: Clear to auscultation bilaterally. Cardiovascular: Regular rate and rhythm. Abdomen is nontender. Extremities: No clubbing, cyanosis, or edema. Her skin is warm and dry. Neurologic: She is awake, alert, and oriented x3. Her speech is fluent. There is no dysarthria. Repetition is intact. Recall of recent and remote events is intact except for the time around her seizure like activity. Her mood is euthymic. Affect is mood congruent. Cranial Nerves II through XII are intact. Motor exam: Spontaneously moving all extremities with some limitations due to pain in her low back but generally symmetric 4+/5 to 5/5 throughout. No drift. Tone is normal. DTR's are symmetric in the upper and lower extremities 1+. Finger-to- nose, rapid alternating movements are intact with mild intention tremor bilaterally. No dysdiadochokinesia or dysmetria. Sensation is intact to light touch and pinprick throughout. Her gait is not tested at this time.. ASSESSMENT AND PLAN: Ms. Roberts is a 52-year-old female with no known history of seizures. No significant risk factors but had an episode 2 years ago where she "passed out" with some confusion afterwards, which in retrospect sounds like it may have been a seizure. She had an episode yesterday which in the semiology is very suggestive of a seizure. She is on Wellbutrin, which is well known to lower seizure threshold that has been stopped. Based on the description of her event and the fact that she had an episode 2 years ago, I recommended starting Keppra 500 mg p.o. b.i.d. She did have some tingling in her mouth but has a noted iodinated contrast media allergy and has multiple allergies. At this point, my suspicion if she having any kind of allergic reaction to the Keppra is low. There has been no report of shortness of air or difficulty swallowing. We will continue this dose and monitor her for any reaction and will change the medication if necessary. At this point, given the semiology and high likelihood this was a seizure based on the description as well as the fact that she has made a good neurologic recovery, I do think we can get an EEG as an outpatient, she will remain on the Keppra and I would recommend discharging her on the Keppra until she can be followed up as an outpatient. There is the high possibility that this could be a provoked secondary to her Wellbutrin and/or alcohol use. She states that she does drink some, although she denies any heavy drinking. I do think for the time being, she should remain off of the Wellbutrin, I defer to her primary care physician regarding management of her pain and other medical issues as well as the selection of another anti-anxiety medication. She will be followed on seizure precautions and has Ativan p.r.n. I will continue to follow her closely and make further recommendations if necessary. Thank you for the opportunity to participate in her care. [id number]/[facility] #: [id number] RYAN
[2017-08-08] MEDS ORDERED: Senna TAB PO PRN (13:27)
[2017-08-08] MEDS ORDERED: Docusate CAP* 100 MG PO PRN (13:27)
--- NOTE | 2017-08-08 13:58 | PN ---
Subjective Date of Service: 08/08/17 Interval History: Sacral pain and headache with occasional nausea. Sleeping for most of day. Attests to 1 glass of wine nightly, occasionally more w/ mixed drinks. Urinating but painful to bear down. No BM Objective Active Medications: Albuterol (Ventolin Hfa Inhaler*) 2 puff INH Q4H PRN PRN Reason: WHEEZING Diphenhydramine HCl (Benadryl Po*) 25 mg PO Q6H PRN PRN Reason: INSOMNIA Last Admin: 08/08/17 13:00 Dose: 25 mg Docusate Sodium (Colace Cap*) 100 mg PO DAILY PRN PRN Reason: CONSTIPATION Hydromorphone HCl (Dilaudid Tab*) 4 mg PO Q6H PRN PRN Reason: PAIN Last Admin: 08/08/17 11:52 Dose: 4 mg Hydromorphone HCl (Dilaudid Inj*) 1 mg IV Q4H PRN PRN Reason: PAIN Last Admin: 08/08/17 13:01 Dose: 1 mg Levetiracetam (Keppra Tab*) 500 mg PO BID [facility] Last Admin: 08/08/17 08:54 Dose: 500 mg Levothyroxine Sodium (Synthroid Tab*) 150 mcg PO 0600 [facility] Last Admin: 08/08/17 06:11 Dose: 150 mcg Lorazepam (Ativan Inj*) 2 mg IV PUSH Q5M PRN PRN Reason: SEIZURES Montelukast Sodium (Singulair Tab*) 10 mg PO DAILY PRN PRN Reason: SOB/WHEEZING Ondansetron HCl (Zofran Odt Tab*) 4 mg PO Q6H PRN PRN Reason: NAUSEA Last Admin: 08/08/17 08:28 Dose: 4 mg Senna (Senokot Tab*) 1 tab PO DAILY PRN PRN Reason: CONSTIPATION Vital Signs 08/07/17 08/07/17 08/07/17 19:39 21:28 22:28 Temperature Pulse Rate Respiratory 20 18 18 Rate Blood Pressure (mmHg) O2 Sat by Pulse Oximetry 08/07/17 08/07/17 08/07/17 22:30 23:24 23:50 Temperature 97.7 F 98.0 F Pulse Rate 87 79 Respiratory 20 18 20 Rate Blood Pressure 139/92 129/108 (mmHg) O2 Sat by Pulse 99 100 Oximetry 08/08/17 08/08/17 08/08/17 00:50 03:28 04:46 Temperature 98.2 F Pulse Rate 63 Respiratory 18 16 22 Rate Blood Pressure 114/69 (mmHg) O2 Sat by Pulse 99 Oximetry 08/08/17 08/08/17 08/08/17 05:46 07:15 07:19 Temperature 98.4 F Pulse Rate 69 Respiratory 18 18 16 Rate Blood Pressure 107/65 (mmHg) O2 Sat by Pulse 98 Oximetry 08/08/17 08/08/17 08/08/17 08:50 09:50 11:27 Temperature 98.2 F Pulse Rate 65 Respiratory 18 18 16 Rate Blood Pressure 122/73 (mmHg) O2 Sat by Pulse 100 Oximetry 08/08/17 08/08/17 08/08/17 11:52 13:00 13:01 Temperature Pulse Rate Respiratory 16 18 18 Rate Blood Pressure (mmHg) O2 Sat by Pulse Oximetry Oxygen Devices in Use Now: None Appearance: NAD except with shifts in bed, thin Eyes: No Scleral Icterus, PERRLA Ears/Nose/Mouth/Throat: NL Teeth, Lips, Gums, Mucous Membranes Moist Neck: NL Appearance and Movements; NL JVP, Trachea Midline Respiratory: Symmetrical Chest Expansion and Respiratory Effort, Clear to Auscultation Cardiovascular: NL Sounds; No Murmurs; No JVD, RRR, No Edema Abdominal: - - small ventral and periumbilical hernia, Extremities: No Edema, No Clubbing, Cyanosis Skin: No Rash or Ulcers Neurological: Alert and Oriented x 3, NL Sensation, NL Muscle Strength and Tone Result Diagrams: 08/08/17 09:05 08/08/17 09:05 Assess/Plan/Problems-Billing Assessment: 52 yo female PMH anxiety depression on Wellbutrin, asthma(controlled), nightly wine drinker with recent stress and cessation of benzos/adderall p/w with observed generalized seizure. S5 transverse nondisplaced fracture. Likely concussion w/ head lac. Brain MRI wnl. On keppra. PT eval - Patient Problems (1) Seizure Current Visit: Yes Status: Acute Code(s): R56.9 - UNSPECIFIED CONVULSIONS SNOMED Code(s): 05086089 Comment: Appreciate Dr. Kaur recommendations Continue keppra 500mg BID await EEG though symptomology so consistent with seizure and hx of suspicous LOC event in Summer 2014. Ativan 2mg prn 5min for seizure like activity lasting more than 2 minutes. cessation of wellbutrin. (2) Anxiety Current Visit: No Status: Chronic Code(s): F41.9 - ANXIETY DISORDER, UNSPECIFIED SNOMED Code(s): 07510525 (3) Asthma Current Visit: No Status: Chronic Code(s): J45.909 - UNSPECIFIED ASTHMA, UNCOMPLICATED SNOMED Code(s): 454740930 Comment: Well controlled, continue prn inhalers(rarely uses), nonsmoker (4) Depression Current Visit: No Status: Chronic Code(s): F32.9 - MAJOR DEPRESSIVE DISORDER , SINGLE EPISODE, UNSPECIFIED SNOMED Code(s): 49971171 Comment: Stop wellbutrin given potential seizure side effects. Has reportedly had poor success wth SSRIs in past. Will need to start new medication and titrate as outpatient, (5) Sacral fracture, closed Current Visit: Yes Status: Acute Code(s): S32.10XA - UNSP FRACTURE OF SACRUM , INIT ENCNTR FOR CLOSED FRACTURE SNOMED Code(s): 058690665 Comment: nondisplaced transverse through 5th sacral body. s/p trauma/fall from standing. Pain control with dilaudid 4mg po q6 with IV 1mg q4 prn for breakthrough. No bowel or bladder or other neurologic deficit. Physical therapy Status and Disposition: medicine inpatient likely d/c 08/09. PT eval pending. Attending: Immanuel Mendosa
[2017-08-08] MEDS ORDERED: NS 0.9% 1000 ML* 1,000 ML IV SCH (15:15)
--- NOTE | 2017-08-08 18:51 | ED ---
Aris Aranda Thomas, scribed for Eduard Carcamo MD on 08/07/17 at 1628 . Syncope/Near Syncope - HPI Summary HPI Summary: The pt is a 52 y/o F BIBA c/o tailbone pain s/p a sudden-onset syncopal episode that occurred shortly prior to arrival. The patient was conversing with a co- worker when she suddenly had LOC and fell on her tailbone. She was not postictal. She has fainted once previous this syncope. Workup for that syncopal episode was negative for seizure; however, it did reveal hyperparathyroid disease. PMHx: hyperparathyroid disease. PSHx: parathyroidectomy. SHx: no smoking, occasional alcohol use, no illicit drugs. FHx: negative for seizures. She is in a C-collar at time of examination. - History Of Current Complaint Time Seen by Provider: 08/07/17 15:40 Hx Obtained From: Patient Onset/Duration: Sudden Onset, Lasting Minutes - onset shortly prior to arrival, Resolved Context: Witnessed Activity At Onset: Other - Talking to co-worker Aggravating Factor(s): Nothing Alleviating Factor(s): Spontaneous Resolution Associated Signs And Symptoms: Other - Tailbone pain, LOC; NEGATIVE: postictal Related History: Similar Episode/Dx as - previous syncope which had negative workup for seizure - Allergies/Home Medications Allergies/Adverse Reactions: Allergies Allergy/AdvReac Type Severity Reaction Status Date / Time Codeine Allergy Severe RASH, Verified 04/29/17 12:28 SWELLING Iodinated Contrast Media Allergy Severe Difficulty Verified 04/29/17 12:28 [CONTRAST DYE] Breathing Latex Allergy Severe Hives Verified 04/29/17 12:28 Penicillins Allergy Severe Anaphylatic Verified 04/29/17 12:28 Shock Morphine Allergy Intermediate Rash Verified 04/29/17 12:28 Meclizine Allergy Anxiety Verified 04/29/17 12:28 Sulfa Antibiotics Allergy Rash And Verified 04/29/17 12:28 Itching Metoclopramide [From Reglan] AdvReac Anxiety Verified 04/29/17 12:28 Prochlorperazine AdvReac Anxiety Verified 04/29/17 12:28 [From Compazine] Home Medications: Home Medications Levothyroxine TAB* [Synthroid TAB*] 150 mcg PO DAILY 08/07/17 [History Confirmed 08/07/17] PMH/Surg Hx/FS Hx/Imm Hx Previously Healthy: No Endocrine/Hematology History: Reports: Hx Thyroid Disease - ON DAILY MEDS Denies: Hx Anticoagulant Therapy, Hx Diabetes Cardiovascular History: Denies: Hx Congestive Heart Failure, Hx Deep Vein Thrombosis, Hx Hypertension , Hx Myocardial Infarction, Hx Pacemaker/ICD Respiratory History: Reports: Hx Asthma - INHALER PRN Denies: Hx Chronic Obstructive Pulmonary Disease (COPD), Hx Lung Cancer, Hx Pneumonia, Hx Pulmonary Embolism GI History: Denies: Hx Gall Bladder Disease, Hx Gastrointestinal Bleed, Hx Ulcer, Hx Urosepsis History: Reports: Hx Kidney Stones - HX OF Denies: Hx Renal Disease Comment Only: Other Problems/Disorders - DENIES ANY PAIN OR PROBLEMS R/T KIDNEY STONES Musculoskeletal History: Denies: Hx Osteoporosis Sensory History: Reports: Hx Contacts or Glasses - GLASSES Denies: Hx Hearing Aid Opthamlomology History: Reports: Hx Contacts or Glasses - GLASSES Neurological History: Reports: Hx Migraine - Hx OF, NONE IN YEARS, Other Neuro Impairments/Disorders - ADD Denies: Hx Dementia, Hx Seizures, Hx Transient Ischemic Attacks (TIA) Psychiatric History: Reports: Hx Anxiety, Hx Depression - daily meds Denies: Hx Panic Disorder, Hx Schizophrenia, Hx Bipolar Disorder - Surgical History Surgery Procedure, Year, and Place: 2012 [place] [facility] [place] 2008 left foot [place] [facility] [place] 2005 TUBAL LIGATION, [facility] [place]. 2004 GALLBLADDER REMOVED [facility] [place]. hysterectomy 2013. R ULNAR NERVE TRANSPOSITION 09/06/15 [facility] [place] LEFT LEG VEIN SURGERY 2012. 07/2014partial hysterectomy [facility]. 08/22/2014 removal of cyst and nerve on rt wrist [facility]. 2006 UTERAL stents, [facility] [place]/12/15 RT ELBOW ULNAR NERVE DECOMPRESSION [facility] Anesthesia Reactions: No - Immunization History Date of Tetanus Vaccine: 2011 Date of Influenza Vaccine: None Infectious Disease History: Denies: Hx Clostridium Difficile, Hx Hepatitis, Hx Human Immunodeficiency Virus (HIV), Hx of Known/Suspected MRSA, Hx Shingles, Hx Tuberculosis, Hx Known/ Suspected VRE, Hx Known/Suspected VRSA, History Other Infectious Disease, Traveled Outside the in Last 30 Days - Family History Known Family History: Positive: Cardiac Disease, Hypertension, Diabetes, Other - CVA - Social History Alcohol Use: Occasionally Alcohol Amount: 1 or more glass wine/DAY Hx Substance Use: No Substance Use Type: Reports: None Hx Tobacco Use: Yes Smoking Status (MU): Former Smoker Type: Cigarettes Amount Used/How Often: 1PPD+ 5 YRS Length of Time of Smoking/Using Tobacco: 5 years Have You Smoked in the Last Year: No Review of Systems Negative: Fever Positive: Other - Tailbone pain Neurological: Other - NEGATIVE: postictal Positive: Syncope - with LOC All Other Systems Reviewed And Are Negative: Yes Physical Exam - Summary Physical Exam Summary: VITAL SIGNS: Reviewed. GENERAL: Patient is a well-developed and nourished male who is lying comfortable in the stretcher. Patient is not in any acute respiratory distress. HEAD AND FACE: No signs of trauma. No ecchymosis or skull depressions. No sinus tenderness. She has some blood at the base of her skull EYES: PERRLA, EOMI x 2, No injected conjunctiva, no nystagmus. EARS: Hearing grossly intact. Ear canals and tympanic membranes are within normal limits. MOUTH: Oropharynx within normal limits. NECK: Supple, trachea is midline, no adenopathy, no JVD, no carotid bruit, no c- spine tenderness, neck with full ROM. CHEST: Symmetric, no tenderness at palpation LUNGS: Clear to auscultation bilaterally. No wheezing or crackles. CVS: Regular rate and rhythm, S1 and S2 present, no murmurs or gallops appreciated. ABDOMEN: Soft, non-tender. No signs of distention. No rebound no guarding, and no masses palpated. Bowel sounds are normal. EXTREMITIES: FROM in all major joints, no edema, no cyanosis or clubbing. NEURO: Alert and oriented x 3. No acute neurological deficits. Speech is normal and follows commands. SKIN: Dry and warm MUSCULOSKELETAL: Positive tenderness in the tailbone. Triage Information Reviewed: Yes Vital Signs On Initial Exam: Initial Vitals Resp 20 08/07/17 16:15 Vital Signs Reviewed: Yes Diagnostics - Vital Signs Vital Signs Resp 08/07/17 16:15 20 - Laboratory Result Diagrams: 08/07/17 17:20 08/07/17 17:20 Lab Statement: Any lab studies that have been ordered have been reviewed, and results considered in the medical decision making process. - Radiology CXR Xray Interpretation: No Acute Changes - Stigmata of obstructive lung disease. No acute pulmonary or cardiac process evident. ED physician has reviewed this report and agrees. Radiology Interpretation Completed By: Radiologist Sacrum and Coccyx XR Xray Interpretation: No Acute Changes - Nondisplaced transverse fracture through the fifth sacral vertebral body. ED physician has reviewed this report and agrees. Radiology Interpretation Completed By: Radiologist - CT CT Brain CT Interpretation: No Acute Changes - No acute intracranial process evident. ED physician has reviewed this report and agrees. CT Interpretation Completed By: Radiologist CT C-Spine CT Interpretation: No Acute Changes - 1. No traumatic cervical spine injury evident. 2. Only mild interval worsening of multilevel degenerative spondylosis and posterior element osteoarthritis with associated multilevel foraminal stenosis compared with the October 14, 2015 exam. ED physician has reviewed this report and agrees. CT Interpretation Completed By: Radiologist - EKG 16:15 Cardiac Rate: NL - 82 BPM EKG Rhythm: Sinus Rhythm EKG Interpretation: No ST elevations. Nml axis. Course/Dx Assessment/Plan: The pt is a 52 y/o F BIBA c/o tailbone pain s/p a sudden-onset syncopal episode that occurred shortly prior to arrival. The patient was conversing with a co-worker when she suddenly had LOC and fell on her tailbone. She was not postictal. She has fainted once previous this syncope. Workup for that syncopal episode was negative for seizure; however, it did reveal hyperparathyroid disease. PMHx: hyperparathyroid disease. PSHx: parathyroidectomy. SHx: no smoking, occasional alcohol use, no illicit drugs. FHx: negative for seizures. She is in a C-collar at time of examination. Test results are without significant abnormality. CT C-spine shows 1. No traumatic cervical spine injury evident. 2. Only mild interval worsening of multilevel degenerative spondylosis and posterior element osteoarthritis with associated multilevel foraminal stenosis compared with the October 14, [address] Brain shows No acute intracranial process evident. CXR shows Stigmata of obstructive lung disease. No acute pulmonary or cardiac process evident. Sacrum and coccyx XR shows Nondisplaced transverse fracture through the fifth sacral vertebral body. At this point, I do not know if the patient had a syncopal episode vs a seizure episode. The patient has as 1cm laceration in the left occipital area. It is very superficial and the patient declines sutures/nova and requests glue. The patient will be given a booster for tetanus. At this point, Dr. Mendosa accepts the patient for admission. - Diagnoses Provider Diagnoses: Syncope vs Seizure - Physician Notifications Discussed Care of Patient With: Immanuel Mendosa Time Discussed With Above Provider: 18:04 Instructed by Provider To: Other - I consulted with Dr. Mendosa, hospitalist, regarding patient care. He accepts the patient for admission. Discharge - Discharge Plan Condition: Fair Disposition: ADMITTED TO [facility] documentation as recorded by the Aris mejia Thomas accurately reflects the service I personally performed and the decisions made by , Eduard Carcamo MD.
[2017-08-09] MEDS: Levothyroxine TAB* 150 MCG TAB PO SCH (05:58)
[2017-08-09] MEDS: HYDROmorphone TAB* 4 MG PO PRN ×2 (06:01→12:13)
[2017-08-09 08:00] LABS: BUN/Creatinine Ratio 7.7 (8-20); Calcium 8.3 mg/dL (8.6-10.3); EGFR African American 84.2 (>60); EGFR Non-African American 65.4 (>60); Potassium 3.8 mmol/L (3.5-5.0)
[2017-08-09 08:26] LABS: Hematocrit 37 % (35-47); Hemoglobin 12.4 g/dl (12.0-16.0); Mean Corpuscular HGB Conc 34 g/dl (31-36); Mean Corpuscular Hemoglobin 32 pg (27-31); Mean Corpuscular Volume 94 fL (80-97); Mean Platelet Volume 10 um3 (7.4-10.4); Red Blood Count 3.91 10^6/ul (4.0-5.4); Red Cell Distribution Width 14 % (10.5-15); White Blood Count 4.9 10^3/ul (3.5-10.8)
[2017-08-09] MEDS ORDERED: Pneumococcal *Vac Polyvalent 0.5 ML VIAL IM ONE (09:00)
[2017-08-09] MEDS: Ondansetron ODT TAB* 4 MG PO PRN (09:08)
[2017-08-09] MEDS: HYDROmorphone INJ* 2 MG/ML CARPUJECT SYRINGE IV PRN ×2 (09:08→13:52)
[2017-08-09] MEDS: levETIRAcetam TAB* 500 MG PO SCH (09:08)
[2017-08-09 12:32] VITALS: BP 100/68
--- NOTE | 2017-08-09 21:38 | DS ---
CC: Dr. Garcias * DISCHARGE SUMMARY: DATE OF ADMISSION: 08/07/17 DATE OF DISCHARGE: 08/09/17 ADMITTING PROVIDER: Immanuel Mendosa MD ATTENDING PHYSICIAN: Immanuel Mendosa MD PRIMARY CARE PROVIDER: Dr. Garcias. CHIEF COMPLAINT: Loss of consciousness with observed seizure-like activity. PRINCIPAL DIAGNOSIS: Seizure disorder (new diagnosis). SECONDARY DIAGNOSES: 1. Asthma. 2. Depression. 3. Anxiety. 4. Hypothyroidism. HISTORY OF PRESENT ILLNESS AND HOSPITAL COURSE: The patient is a 52-year-old female with past medical history of asthma, anxiety, depression, hypothyroidism , frequent alcohol use, who had been observed with loss of consciousness and bilateral rigid extremities with violent shaking that was quite suspicious for observed generalized seizure. The patient had a previous episode in February 2015, which may also have been a seizure, please see H and P for further details. The patient, of note, was on Wellbutrin and recently tapered off Valium that she was on for approximately 2 months over the summer. The patient was evaluated by Dr. Kaur of Neurology. She had an MRI of her brain, which was slightly limited due to inability to position in the standard head coil given claustrophobia, but otherwise unremarkable. The patient was started on Keppra 500 mg b.i.d., had no further seizure events during her hospitalization. During the initial seizure event, she fell straight backward on to a hard slate floor and this traumatic course was complicated by head laceration as well as a non-displaced fifth sacral vertebral body transverse fracture. She was seen by Physical Therapy, was able to ambulate without assistive aid, although with some pain. She will be discharged with close followup with Dr. Kaur within 4 weeks. Wellbutrin was held. Keppra is initiated. She will not be allowed to drive. She was referred for home physical therapy services along with VNS. ___ __ have to be managed as an outpatient given the cessation of Wellbutrin, given the side effects of potential seizures. DISCHARGE MEDICATIONS: Include: 1. Albuterol 2 puffs inhaled q.4 hours p.r.n. 2. Levothyroxine 150 mcg daily. 3. Singulair 10 mg daily. 4. Levetiracetam 500 mg b.i.d. 5. Docusate 100 mg p.o. daily. 6. Senna tab 1 tab p.o. daily. 7. Hydrocodone/acetaminophen 5/325 mg 1 tab q.6 hours p.r.n. for pain, 28 tabs given. DISCHARGE DIET: Unrestricted, unchanged. ACTIVITY: No limitations. FOLLOWUP: Please follow up with Dr. Garcias within 2 to [address] Kaur within 4 weeks. TIME SPENT: Time spent on discharge 35 minutes. [id number]/CPS #: [id number] MTDD
== END 2017-08-09 14:45 | disposition home or self-care (01) | DRG 53 ==
LOC: ED 14:57 → MEDTELE 18:28 → OBSVTOIN 19:32
PROVIDERS: ADMIT Internal Medicine; ATTEND Internal Medicine
DX: G40.909 Epilepsy, unspecified, not intractable, without status epilepticus (principal); S32.19XA Other fracture of sacrum, initial encounter for closed fracture; J45.909 Unspecified asthma, uncomplicated; F32.9 Major depressive disorder, single episode, unspecified; E03.9 Hypothyroidism, unspecified; S01.01XA Laceration without foreign body of scalp, initial encounter; F41.9 Anxiety disorder, unspecified; W18.39XA Other fall on same level, initial encounter; K43.9 Ventral hernia without obstruction or gangrene; K42.9 Umbilical hernia without obstruction or gangrene; Y92.000 Kitchen of unspecified non-institutional (private) residence as the place of occurrence of the external cause; Z79.899 Other long term (current) drug therapy; Z87.891 Personal history of nicotine dependence; Z88.5 Allergy status to narcotic agent; Z88.0 Allergy status to penicillin; Z91.041 Radiographic dye allergy status; Z91.040 Latex allergy status
CPT/HCPCS: 36415; 70450; 70553; 71020; 72125; 72220; 80048; 80053; 80307; 80320; 81003; 81015; 83605; 83735; 83880; 84443; 84484; 85025; 87077; 87086; 87186; 90715; 93005; A9270-GY; A9579; G0480; J1170; J1885; J2060; J2405; J3010

== ENCOUNTER 2018-01-29 10:20 | Emergency (ER) | payer BC ==
[2018-01-29] MEDS ORDERED: Acetaminophen TAB* 325 MG PO ONE (10:41)
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
[2018-01-29] MEDS ORDERED: Ibuprofen TAB* 600 MG PO ONE (13:04)
[2018-01-29 13:19] VITALS: BP 120/58
== END 2018-01-29 13:18 | disposition home or self-care (01) ==
LOC: ED 10:20
DX: M54.2 Cervicalgia (principal); M54.6 Pain in thoracic spine; M25.561 Pain in right knee; S00.81XA Abrasion of other part of head, initial encounter; V47.0XXA Car driver injured in collision with fixed or stationary object in nontraffic accident, initial encounter; Y93.89 Activity, other specified; Y92.89 Other specified places as the place of occurrence of the external cause; E07.9 Disorder of thyroid, unspecified; J45.909 Unspecified asthma, uncomplicated; Z87.442 Personal history of urinary calculi; G43.909 Migraine, unspecified, not intractable, without status migrainosus; F98.8 Other specified behavioral and emotional disorders with onset usually occurring in childhood and adolescence; F41.9 Anxiety disorder, unspecified; F32.9 Major depressive disorder, single episode, unspecified; Z88.5 Allergy status to narcotic agent; Z88.0 Allergy status to penicillin; Z88.2 Allergy status to sulfonamides; Z88.8 Allergy status to other drugs, medicaments and biological substances; Z91.041 Radiographic dye allergy status; Z91.040 Latex allergy status; Z87.891 Personal history of nicotine dependence
CPT/HCPCS: 72125; 72128; 72131; 99282; A9270-GY

== ENCOUNTER 2018-07-15 13:57 | Emergency (ER) | payer BC ==
--- OUTSIDE RECORDS SUMMARY | 2018-07-15 16:03 | XMS REPORT ---
:1965 External Reference #:[id number] Author Organization [employer] Address [address] [place] [address] [place] [address] Phone [phone] Care Team Providers Name Role Phone Ignacio Garcias MD Primary Care Physician Unavailable Payers Type Date Identification Numbers Payment Provider Subscriber Commercial Policy Number: [id number] [facility] Higinio Blackwell Group Name: [id number] [address] [address] PayID: [id number] MORALES [place] [address] Workers Compensation Onset: 2018 Policy Number: State Matt Ornelas [id number] Group Number: [id number] [address] Group Name: Ext. [id number] [place] [address] PayID: [id number] Workers Effective: Policy Number: Doroteo Ornelas Compensation 2016 [id number] [place] Onset: 2014 Group Number: [id number] [address] [address] PayID: [id number] [id number] Workers Expires: Policy Number: Doroteo Ornelas Compensation 2016 [id number] [place] Onset: 2014 PayID: MADIHA [address] VALAR[place] Perez [phone] Workers Onset: 2014 Policy Number: Doroteo Ornelas Compensation [id number] [place] PayID: MADIHA [address] [place] Perez [phone] Problems Date Description Provider Status Onset: 07/10/2015 Radial styloid tenosynovitis Annelise Emmanuel M.D. Active Onset: 07/10/2015 Lesion of ulnar nerve Annelise Emmanuel M.D. Active Onset: 07/10/2015 Depressive disorder Lila Taveras DO Active Onset: 05/04/2018 Current tear of medial cartilage Amanda Morales MD Active AND/OR meniscus of knee Onset: 05/04/2018 Contusion of knee Amanda Morales MD Active Onset: 05/04/2018 Posttraumatic headache Aurelio Kaur M.D. Active Onset: 05/04/2018 Amnesia Aurelio Kaur M.D. Active Onset: 09/07/2017 Seizure Aurelio Kaur M.D. Active Onset: 09/05/2016 Mononeuropathy of upper limb Panda Acevedo MD Active Onset: 05/26/2016 Wrist joint pain Savi Winters M.D. Active Onset: 04/16/2016 Lateral epicondylitis Savi Winters M.D. Active Onset: 04/16/2016 Arthralgia of the upper arm Savi Winters M.D. 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 Cigarette Use Former Cigarette Smoker Smokeless Tobacco Never Used Smokeless Tobacco ETOH Use Occasionally consumes alcohol Smoking Patient is a former smoker quit in 1988 Recreational Drug Use Denies Drug Use Daily Caffeine Consumes on average 3 cups of regular coffee per day Exercise Type/Frequency Exercises regularly Allergies, Adverse Reactions, Alerts Date Description Reaction Status Severity Comments 03/22/2009 Penicillins shock active Severe anaphylactic shock 03/22/2009 Iodine difficulty active Severe difficulty breathing with breathing ivp dye 03/22/2009 Latex hives active Moderate hives 03/30/2014 Codeine liquid only active Rash/ swelling 04/07/2016 Morphine rash active Moderate rash 04/07/2016 Metoclopramide anxiety active Mild anxiety 04/07/2016 Prochlorperazine anxiety active Mild anxiety 04/08/2016 Sulfa Antibiotics Urticaria active Moderate to Severe 03/30/2014 Penicillin inactive 03/30/2014 Latex inactive Medications Medication Date Status Form Strength Qnty SIG Indications Ordering Provider Ibuprofen 05/08/ Active Tablets 600mg 40tab 1 q 8 719.47 Alfredo 2008 s hours prn helio Redd.DMarcelino,FACP Singulair 03/22/ Active Tablets 10mg 30tab 1 po qd Alfredo 2008 s Hodan Kaba M.D.,FACP Albuterol 03/22/ Active 17G 1unit 2 puffs Alfredo Inhaler 2008 s up to qid Hodan Kaba, prn M.DMarcelino,FACP Wellbutrin SR / Active Tablets ER 200mg 1 to 2 by Unknown 0000 12HR mouth daily Amphetamine-Dext / Active Caps ER 10mg prn, up Unknown roamphet ER 0000 24HR to 3 tabs Levothyroxine / Active Tablets 150mcg once [place], Sodium 0000 daily MD Ignacio Zolpidem / Active Tablets 5mg Take One Unknown Tartrate 0000 Tablet By Mouth Every Day AT Bedtime as Needed For Insomnia M Sumatriptan 06/09/ Hx Tablets 50mg 9tabs take 1 at G43.109 Ariella Succinate 2016 onset of MD Baldev migraine. may repeat within 2 hours if needed. max 2x/week. max daily dose 100mg Lyrica 11/22/ Hx Capsules 75mg 60cap 1 by Panda 2015 - mouth Govind, 12/12/ twice a M.D. 2015 day, may increase to 2 caps bid. Percocet 09/05/ Hx Tablets 5-325mg 40tab 1-2 by Annelise 2014 - mouth Nieto-Darryl 03/26/ every 4 ng, M.D. 2016 to 6 hours as needed pain Meloxicam 08/23/ Hx Tablets 15mg 30tab take 1 M25.521 Annelise 2014 - tab daily Emilia-Darryl 03/26/ with food ng, M.D. 2015 Hydrocodone-Acet 08/23/ Hx Tablets 5-325mg 30tab 1 tabs by Annelise aminophen 2014 - s mouth Nieto-You 03/26/ every 6 ng, M.D. 2016 hours as needed pain Oxycodone-Acetam 07/20/ Hx Tablets 5-325mg 90tab take 1 to Z48.89 Savi inophen 2014 - s 2 tablets Singh, 09/03/ by mouth M.D. 2014 every 8 hours as needed pain Oxycodone-Acetam 07/13/ Hx Tablets 5-325mg 30tab take 1 to Annelise inophen 2014 - s 2 tablets Nieto-You 07/20/ by mouth Amy ortiz 2014 every 4-6 hours as needed for pain [place] 07/05/ Hx Tablets 5-325mg 30tab 1-2 by Annelise 2014 - s mouth q Nieto-You 07/24/ 4-6hr as Amy ortiz 2014 needed for post op pain Tramadol 10/17/ Hx Tablets 37.5-325mg 30tab 1-2 Hiral Hydrochloride/Ac 2013 - s tablets Calderon, etaminophen 10/17/ every 6 M.D. 2013 hours as needed pain [place] 10/17/ Hx Tablets 5-325mg 30tab 1-2 tabs Hiral 2013 - s by mouth Calderon, 12/24/ q 6 h as M.D. 2014 needed for pain [place] 07/27/ Hx Tablets 5-325mg 40tab 1-2 tabs Hiral 2013 - s by mouth Calderon, 10/06/ q 6 h as M.D. 2013 needed for pain Tramadol 06/22/ Hx Tablets 37.5-325mg 30tab 1-2 Hiral Hydrochloride/Ac 2013 - s tablets Calderon, etaminophen 10/06/ every 6 M.D. 2013 hours as needed pain Hydrocodone-Acet 06/22/ Hx Tablets 5-325mg 30tab 1-2 by Hiral aminophen 2013 - s mouth q6 Calderon, 07/26/ hour as M.D. 2013 needed pain Hydrocodone-Ibup 05/23/ Hx Tablets 7.5-200mg 60tab 1 by 724.4 Keven lee 2013 - mouth Darcy, 06/06/ every 6 M.D. 2013 hours as needed pain Hydrocodone-Ibup 03/30/ Hx Tablets 5-200mg 50tab 1 or 2 po Kevin lee 2013 - s q4h prn Elvira, 03/30/ pain M.D. 2013 Flexeril 03/30/ Hx Tablets 10mg 15tab 1-2 by Kevin 2013 - mouth hs Elvira, 06/06/ as needed M.D. 2013 pain and spasms [place] 03/30/ Hx Tablets 5-325mg 50tab 1-2 tabs Kevin 2013 by mouth Elvira, 03/30/ q4 as M.D. 2013 needed pain [place] 03/30/ Hx Tablets 5-325mg 6tabs 1-2 by Frederick 2013 - mouth Taqueria, 05/04/ every 4 M.D. 2013 to 6 hours as needed Oxycodone HCL 06/03/ Hx Tablets 5mg 20tab 1 tab by Ld 2010 - mouth Dimitrios, 05/04/ every 4 M.D. 2014 hours pain Oxycodone/Acetam 05/14/ Hx Tablets 5-325mg 60tab 1-2 tabs Ld inophen 2010 - po q 4 Dimitrios, 05/04/ hrs prn M.D. 2013 pain [place] 05/02/ Hx Tablets 5-325mg 40tab 1-2 po Ld 2010 - s q4h prn Dimitrios, 05/04/ M.D. 2013 Ambien CR 10/17/ Hx Tablets ER 12.5mg 30tab 1 qhs prn Thananart, 2008 Patricia, 05/04/ M.D. 2013 Flexeril 08/24/ Hx Tablets 10mg 30tab 1 po q 8 Thananart, 2008 s hours prn Patricia, 05/05/ M.D. 2013 Zolpidem 08/17/ Hx Tablets 10mg 90tab 1 tab po Caterina Tartrate 2008 - s qd qhs Cotton, 05/05/ M.D. 2013 Tamiflu 07/26/ Hx Capsules 75mg 10cap 1 tab po 780.60 Thananart, 2008 - bid x 5 Patricia, 08/17/ days M.D. 2008 Vistaril 06/29/ Hx Capsules 25mg 30cap 1 tab po 620.2 Stevanovic 2008 qid , Radomir, 05/05/ M.D. 2013 Ambien CR 06/18/ Hx Tablets ER 12.5mg 30tab 1 qhs prn Thananart, 2009 - s Patricia, M.D. 2008 Valium 06/18/ Hx Tablets 10mg 2tabs 1 tab po Thananart, 2008 - tid prn2 Patricia, M.D. 2009 Soma 06/05/ Hx Tablets 350mg 30tab one 724.5 Caterina 2008 - s tablet po Cotton, 08/24/ q 8 hours M.D. 2008 prn muscle spasm Diflucan 05/25/ Hx Tablets 150mg 1tabs sig 1 prn Thananart, 2008 - Patricia, M.D. 2013 Ciprofloxacin 05/24/ Hx Tablets 250mg 6tabs 1 bid x 3 788.41 Thananart, HCL 2008 - days Patricia, M.D. 2008 Vicoprofen 05/10/ Hx Tablets 7.5-200mg 40tab 1q 6 724.5 Dirk 2008 - s hours prn Elvira, 05/23/ pain M.D. 2013 Percocet 05/08/ Hx Tablets 5-325mg 40tab 1 q 4 719.47 Alirio 2008 - s hours prn , Radomir, 08/17/ pain M.D. 2008 Zithromax Z-Efraín 03/28/ Hx Tablets 250mg 1Pak take as 461.8 Thananart, 2008 - directed Patricia, M.D. 2008 Tussionex 03/28/ Hx Liquid ER 120cc 1 tsp po 461.8 Thananart, Pennkinetic 2008 - q12h prn Patricia, Extended Release M.D. 2014 Baclofen 03/26/ Hx Tablets 10mg 30tab 1 tab po 723.1 Thananart, 2008 - s tid prn Patricia, M.D. 2008 Synthroid 03/22/ Hx Tablets 112mcg 30tab 1 po qd Alfredo 2008 - s D. Sendy, M.D.,FACP 2017 Wellbutrin XL 03/22/ Hx Tablets ER 300mg 90tab once qd Alfredo 2008 - 24HR s Hodan Kaba, M.D.,FACP 2016 Skelaxin 03/22/ Hx Tablets 800mg 40tab 1 q 8 723.1 Thananart, 2008 - s hours prn Patricia, 03/26/ lorenzo Reyes 2008 spasms Wellbutrin SR / Hx Tablets ER 150mg 60tab 1 by Unknown 0000 - 12HR s mouth 06/06/ twice a 2013 day Synthroid / Hx Tablets 112mcg 90tab 1 by Unknown 0000 - s mouth 05/23/ every day 2013 Singulair / Hx Tablets 10mg 90tab 1 by Unknown 0000 - s mouth 05/23/ day 2013 Mobic / Hx Unknown 0000 - 2015 Sensipar / Hx Tablets 30mg 1 by Unknown 0000 - mouth 09/06/ every day 2016 Nitrofurantoin / Hx Capsules 100mg [place], Monohydrate/Macr 0000 - Tiffanie ocrystals AMarcelino, LÁZARO 2016 Diazepam / Hx Tablets 5mg Take One Unknown 0000 - Tablet By Mouth 2016 Every 8 Hours as Needed For Anxiety Maximum D Bupropion HCL ER / Hx Tablets ER 150mg [place], (SR) 0000 - 12HR Ignacio 09/06/ 2016 Oxycodone-Acetam / Hx Tablets 10-325mg [place], inophen 0000 - Ignacio 09/06/ 2016 Medications Administered in Office Medication Date Status Form Strength Qnty SIG Indications Ordering Provider Tetanus,Unspec Administered Injection Unknown ified 012 Vital Signs Date Vital Result Comment 07/15/2018 Height 62 inches 5'2" Weight 110.00 lb Heart Rate 110 /min BP Systolic 138 mmHg BP Diastolic 88 mmHg Respiratory Rate 18 /min Body Temperature 100.0 F BMI (Body Mass Index) 20.1 kg/m2 07/13/2018 Height 62 inches 5'2" Weight 113.00 lb Heart Rate 70 /min BP Systolic 130 mmHg BP Diastolic 82 mmHg Body Temperature 97.0 F Pain Level 2 BMI (Body Mass Index) 20.7 kg/m2 06/29/2018 Height 62 inches 5'2" Heart Rate 76 /min BP Systolic 140 mmHg BP Diastolic 84 mmHg Body Temperature 97.8 F Pain Level 3 05/04/2018 Height 62 inches 5'2" Weight 110.00 lb BP Systolic 134 mmHg BP Diastolic 80 mmHg Respiratory Rate 20 /min Pain Level 5 BMI (Body Mass Index) 20.1 kg/m2 05/04/2018 Height 62 inches 5'2" Weight 110.00 lb Heart Rate 80 /min BP Systolic 136 mmHg BP Diastolic 96 mmHg Respiratory Rate 16 /min BMI (Body Mass Index) 20.1 kg/m2 03/30/2018 Height 62 inches 5'2" Weight 114.00 lb BP Systolic 118 mmHg BP Diastolic 66 mmHg Respiratory Rate 18 /min Body Temperature 97.7 F Pain Level 8 BMI (Body Mass Index) 20.8 kg/m2 09/11/2017 Height 62 inches 5'2" Weight 101.00 lb Heart Rate 76 /min BP Systolic Sitting 124 mmHg BP Diastolic Sitting 88 mmHg Respiratory Rate 16 /min BMI (Body Mass Index) 18.5 kg/m2 09/07/2017 Height 62 inches 5'2" Weight 102.00 lb Heart Rate 76 /min BP Systolic 122 mmHg BP Diastolic 90 mmHg Respiratory Rate 12 /min BMI (Body Mass Index) 18.7 kg/m2 02/19/2017 Height 62 inches 5'2" Weight 106.00 lb Heart Rate 72 /min BP Systolic 132 mmHg BP Diastolic 82 mmHg Respiratory Rate 16 /min Body Temperature 97.3 F BMI (Body Mass Index) 19.4 kg/m2 09/05/2016 Height 62 inches 5'2" Weight 115.00 lb Heart Rate 62 /min BP Systolic Sitting 104 mmHg BP Diastolic Sitting 70 mmHg Pain Level 3 BMI (Body Mass Index) 21.0 kg/m2 06/09/2016 Height 62 inches 5'2" Weight 110.00 lb Heart Rate 64 /min BP Systolic Sitting 128 mmHg BP Diastolic Sitting 94 mmHg Respiratory Rate 14 /min BMI (Body Mass Index) 20.1 kg/m2 05/26/2016 Height 62 inches 5'2" Weight 110.00 lb Heart Rate 60 /min Respiratory Rate 16 /min Pain Level 3 BMI (Body Mass Index) 20.1 kg/m2 04/16/2016 Height 62 inches 5'2" Weight 110.00 lb Pain Level 3 BMI (Body Mass Index) 20.1 kg/m2 04/08/2016 Height 62 inches 5'2" Weight 110.00 lb Heart Rate 80 /min BP Systolic Sitting 158 mmHg BP Diastolic Sitting 100 mmHg Respiratory Rate 20 /min BMI (Body Mass Index) 20.1 kg/m2 01/25/2016 Height 62 inches 5'2" Weight 112.00 lb Pain Level 3 BMI (Body Mass Index) 20.5 kg/m2 12/07/2015 Height 62 inches 5'2" Weight 112.00 lb Pain Level 3 BMI (Body Mass Index) 20.5 kg/m2 11/07/2015 Height 62 inches 5'2" Weight 112.00 lb Pain Level 4 BMI (Body Mass Index) 20.5 kg/m2 09/14/2015 Height 62 inches 5'2" Weight 112.00 lb Pain Level 4 BMI (Body Mass Index) 20.5 kg/m2 09/04/2015 Height 62 inches 5'2" Weight 112.00 lb Pain Level 4 BMI (Body Mass Index) 20.5 kg/m2 08/23/2015 Height 62 inches 5'2" Weight 112.00 lb Pain Level 7 BMI (Body Mass Index) 20.5 kg/m2 08/21/2015 Height 62 inches 5'2" Weight 112.00 lb Pain Level 4 BMI (Body Mass Index) 20.5 kg/m2 07/25/2015 Height 62 inches 5'2" Weight 112.00 lb Pain Level 3 BMI (Body Mass Index) 20.5 kg/m2 07/20/2015 Height 62 inches 5'2" Weight 112.00 lb Body Temperature 98.0 F Pain Level 8 BMI (Body Mass Index) 20.5 kg/m2 07/10/2015 Height 62 inches 5'2" Weight 112.00 lb Heart Rate 71 /min BP Systolic Sitting 145 mmHg BP Diastolic Sitting 106 mmHg Pain Level 5 BMI (Body Mass Index) 20.5 kg/m2 06/20/2015 Height 62 inches 5'2" Weight 112.00 lb Pain Level 3 BMI (Body Mass Index) 20.5 kg/m2 03/14/2015 Height 62 inches 5'2" Weight 112.00 lb Pain Level 2 BMI (Body Mass Index) 20.5 kg/m2 01/18/2015 Height 62 inches 5'2" Weight 112.00 lb BP Systolic Sitting 137 mmHg BP Diastolic Sitting 110 mmHg Pain Level 4 BMI (Body Mass Index) 20.5 kg/m2 11/30/2014 Height 62 inches 5'2" Weight 110.00 lb BMI (Body Mass Index) 20.1 kg/m2 11/02/2014 Height 62 inches 5'2" Weight 110.00 lb BMI (Body Mass Index) 20.1 kg/m2 10/17/2014 Height 62 inches 5'2" Weight 110.00 lb Pain Level 5 BMI (Body Mass Index) 20.1 kg/m2 09/04/2014 Height 62 inches 5'2" Weight 110.00 lb Heart Rate 68 /min BP Systolic Sitting 126 mmHg BP Diastolic Sitting 86 mmHg Body Temperature 99.4 F BMI (Body Mass Index) 20.1 kg/m2 07/27/2014 Height 62 inches 5'2" Heart Rate 66 /min BP Systolic 132 mmHg BP Diastolic 89 mmHg 07/06/2014 Height 62 inches 5'2" Weight 110.00 lb Pain Level 5 BMI (Body Mass Index) 20.1 kg/m2 06/22/2014 Height 62 inches 5'2" Weight 110.00 lb Heart Rate 87 /min BMI (Body Mass Index) 20.1 kg/m2 06/14/2014 Height 62 inches 5'2" Weight 110.00 lb Heart Rate 88 /min BP Systolic 144 mmHg BP Diastolic 93 mmHg BMI (Body Mass Index) 20.1 kg/m2 06/07/2014 Height 62 inches 5'2" Weight 110.00 lb Heart Rate 72 /min BMI (Body Mass Index) 20.1 kg/m2 05/24/2014 Height 62 inches 5'2" Weight 115.00 lb Heart Rate 89 /min BP Systolic 141 mmHg BP Diastolic 94 mmHg BMI (Body Mass Index) 21.0 kg/m2 05/23/2014 Height 62 inches 5'2" Weight 115.00 lb Heart Rate 70 /min BP Systolic Sitting 114 mmHg BP Diastolic Sitting 90 mmHg Pain Level 6 back BMI (Body Mass Index) 21.0 kg/m2 05/05/2014 Height 62 inches 5'2" Heart Rate 78 /min BP Systolic 134 mmHg BP Diastolic 94 mmHg 04/14/2014 Height 62 inches 5'2" Heart Rate 86 /min BP Systolic 132 mmHg BP Diastolic 87 mmHg 03/30/2014 Height 62 inches 5'2" Weight 110.00 lb Heart Rate 75 /min BP Systolic 114 mmHg BP Diastolic 75 mmHg BMI (Body Mass Index) 20.1 kg/m2 09/17/2009 Height 61.5 inches 5'1.50" Weight 105.00 lb Heart Rate 84 /min BP Systolic Sitting 154 mmHg BP Diastolic Sitting 90 mmHg BMI (Body Mass Index) 19.5 kg/m2 08/17/2009 Height 61.5 inches 5'1.50" Weight 100.00 lb Heart Rate 84 /min BP Systolic Sitting 112 mmHg BP Diastolic Sitting 68 mmHg Body Temperature 98.7 F BMI (Body Mass Index) 18.6 kg/m2 08/02/2009 Height 61.5 inches 5'1.50" Weight 100.50 lb Heart Rate 100 /min BP Systolic Sitting 118 mmHg BP Diastolic Sitting 98 mmHg Body Temperature 99.2 F BMI (Body Mass Index) 18.7 kg/m2 07/26/2009 Height 61.5 inches 5'1.50" Weight 102.00 lb Heart Rate 84 /min BP Systolic Sitting 144 mmHg BP Diastolic Sitting 110 mmHg Body Temperature 99.1 F O2 % BldC Oximetry 98 % BMI (Body Mass Index) 19.0 kg/m2 07/09/2009 Height 61.5 inches 5'1.50" Weight 112.75 lb BP Systolic Sitting 98 mmHg BP Diastolic Sitting 62 mmHg Respiratory Rate 16 /min Body Temperature 98.0 F O2 % BldC Oximetry 98 % BMI (Body Mass Index) 21.0 kg/m2 06/29/2009 Weight 106.25 lb Heart Rate 52 /min BP Systolic Sitting 106 mmHg BP Diastolic Sitting 78 mmHg 06/18/2009 Height 61.50 inches 5'1.50" Weight 108.00 lb Heart Rate 72 /min BP Systolic Sitting 108 mmHg BP Diastolic Sitting 82 mmHg BMI (Body Mass Index) 20.1 kg/m2 06/05/2009 Weight 109.00 lb Heart Rate 80 /min BP Systolic Sitting 110 mmHg BP Diastolic Sitting 70 mmHg 05/24/2009 Weight 107.50 lb Heart Rate 68 /min BP Systolic Sitting 98 mmHg BP Diastolic Sitting 72 mmHg Respiratory Rate 12 /min Body Temperature 98.1 F 05/08/2009 Height 61.75 inches 5'1.75" Weight 102.00 lb Heart Rate 64 /min BP Systolic Sitting 102 mmHg BP Diastolic Sitting 60 mmHg BMI (Body Mass Index) 18.8 kg/m2 03/28/2009 Heart Rate 79 /min BP Systolic Sitting 110 mmHg BP Diastolic Sitting 84 mmHg Body Temperature 98.1 F O2 % BldC Oximetry 100 % 03/26/2009 Height 61.75 inches 5'1.75" Weight 113.00 lb Heart Rate 64 /min BP Systolic Sitting 126 mmHg BP Diastolic Sitting 70 mmHg Body Temperature 98.0 F BMI (Body Mass Index) 20.8 kg/m2 03/22/2009 Height 61.75 inches 5'1.75" Weight 113.00 lb Heart Rate 68 /min BP Systolic Sitting 138 mmHg BP Diastolic Sitting 84 mmHg Respiratory Rate 16 /min BMI (Body Mass Index) 20.8 kg/m2 Results Test Date Test Result H/L Range Note Laboratory test 09/06/2015 Surgical Pathology SEE RESULT BELOW 1 finding Surgical Pathology 08/22/2014 S RUN DATE: <SEE NOTE> Urinalysis 09/18/2009 Ua Color YELLOW W/Microscopic Appearance-Urine CLEAR Specific [place]-Ur 1.004 Low 1.010-1.030 Esterase-Urine NEGATIVE Negative Nitrite NEGATIVE Negative Fimhqonybipr-Ha-CMK NEGATIVE Negative Protein-Urine NEGATIVE Negative PH-Urine 6.0 5-9 Blood-Urine NEGATIVE Negative Ketones-Urine NEGATIVE Negative Bilirubin-Ur NEGATIVE Negative Glucose-Urine NEGATIVE Negative WBC-Urine 0-2 0-5 RBC-Urine NONE SEEN 0-2 Epith Cells-Ur 1-3 Urine Culture & Sensitivi 09/18/2009 Urine Culture SN1 3 Sensitivi Laboratory test finding 06/18/2009 TSH 5.22 MIU/ML 0.34-5.60 4 Vitamin D, 25 Hydroxy 06/18/2009 25-Hydroxy Vitamin D2 <4.0 ng/mL () 25-Hydroxy Vitamin D3 42 ng/mL () 25-Hydroxy Vitamin D Total 42 ng/mL () 5 Urine Culture & Sensitivi 05/24/2009 Urine Culture Sensitivi NG 6 Urinalysis W/Microscopic 05/24/2009 Ua Color YELLOW Appearance-Urine CLEAR Specific [place]-Ur 1.011 1.010-1.030 Esterase-Urine NEGATIVE Negative Nitrite NEGATIVE Negative Fsruldedijpe-Ro-LQP NEGATIVE Negative Protein-Urine NEGATIVE Negative PH-Urine 6.0 5-9 Blood-Urine 1+ Negative Ketones-Urine NEGATIVE Negative Bilirubin-Ur NEGATIVE Negative Glucose-Urine NEGATIVE Negative WBC-Urine 0-2 0-5 RBC-Urine 0-2 0-2 Epith Cells-Ur FEW Ua Stat 04/07/2009 Ua Color YELLOW Appearance-Urine CLEAR Specific [place]-Ur 1.015 1.010-1.030 Esterase-Urine NEGATIVE Negative Nitrite NEGATIVE Negative Ppsxlxmuiboc-Ns-SLS NEGATIVE Negative Protein-Urine NEGATIVE Negative PH-Urine 7.0 5-9 Blood-Urine NEGATIVE Negative Ketones-Urine NEGATIVE Negative Bilirubin-Ur NEGATIVE Negative Glucose-Urine NEGATIVE Negative Comp Metabolic Panel 04/07/2009 Sodium 136 mmol/L 135-145 Potassium 4.3 mmol/L 3.5-5.0 Chloride 104 mmol/L 101-111 Co2 (Carbon Dioxide) 26.0 mmol/L 22-32 Anion Gap 6.0 mmol/L 2-11 7 Glucose 99 mg/dL 70-100 8 BUN 18 mg/dL 6-24 Creatinine 0.90 mg/dL 0.50-1.40 One Over Creatinine 1.10 BUN/Creatinine Ratio 20.0 8-20 Calcium 9.8 mg/dL 8.1-9.9 9 Total Protein 7.4 GM/DL 6.2-8.1 Albumin 4.1 GM/DL 3.6-5.4 Globulin 3.3 GM/DL 2-4 Albumin/Globulin Ratio 1.2 1-3 Bilirubin Total 0.7 mg/dL 0.4-1.5 10 Alkaline Phosphatase 66 U/L 30-110 Alt (SGPT) 19 U/L 14-54 Ast (Sgot) 26 U/L 12-42 Laboratory test finding 04/07/2009 (HCG) Serum NEGATIVE Negative 11 CBC With Electronic Diff 04/07/2009 White Blood Count 8.0 CUMM 4.8-10.8 Red Cell Count 4.34 CUMM 4.2-5.4 Hemoglobin 13.4 g/dL 12.0-16.0 Hematocrit 38 % 35-47 Mean Corpuscular Volume 88 um3 79-97 Mean Corpuscular Hemoglob 31 pg 27-31 Mean Corpuscular HGB Cone 35 g/dL 32-36 Redcell Distribution WDTH 14 % 10.5-15 Platelet Count 289 CUMM 150-450 Mean Platelet Volume 8.5 um3 7.4-10.4 Gran % 66.8 % 38-83 Lymph % 25.5 % 25-47 Mononuclear % 6.5 % 1-9 Eosinophil % 0.8 % 0-6 Basophil % 0.4 % 0-2 Abs Lymphs 2.0 1.0-4.8 Abs Mononuclear 0.5 0-0.8 Absolute Neutrophil Count 5.3 1.5-7.7 Abs Eosinophils 0.1 0-0.6 Abs Basophils 0 0-0.2 Throat-Beta Strept 03/24/2009 Throat-Beta Strep Culture NF 12 1 SEE RESULT BELOW Name: DREW ORNELAS : [address]: Annelise Emmanuel Acct: [id number] Unit: [id number] AGE: 50 Location: [facility] Re09/06/15 SEX: F Status: REG [facility] SPEC: [id number] MARILUZ: 09/06/15 [facility] DR: Annelise Emmanuel MD REQ: [id number] RECD: 09/06/15 STATUS: SOUT _ ORDERED: S-100, LEVEL III, [id number] FINAL DIAGNOSIS Soft tissue, right elbow, excision: -- Schwannoma, incidental (4 mm). See comment. -- Fibrous connective tissue compatible with an intramuscular septum. Immunohistochemical stains for S100 and Sox 10 were performed with appropriate controls and support the above rendered diagnosis. PRE-OPERATIVE DIAGNOSIS Right cubital tunnel syndrome, status post revision DeQuervain's GROSS DESCRIPTION The specimen is received in formalin labeled, Intramuscular Septum Right Elbow, and consists of a 2.4 x 0.2-0.5 x 0.4 cm yellow-white rubbery to fibrous tissue, which is entirely submitted in one cassette. Signed (signature on file) Marshal Conde MD 1330 END OF REPORT * ML=Testing performed at Main Lab DEPARTMENT OF PATHOLOGY, [facility] [place], [place] [address] Marshal Conde M.D. Director [facility] # [id number] 2 RUN DATE: 08/23/14 [facility] LAB LIVE PAGE 1 RUN TIME: [address] [facility] [place], [place] [address] Specimen Inquiry Name: DREW ORNELAS : [address]: Hiral Calderon MD Acct: [id number] Unit: [id number] AGE: 49 Location: [facility] Re08/22/14 SEX: F Status: REG [facility] SPEC: [id number] MARILUZ: 08/22/14- SUBM DR: Hiral Calderon MD REQ: [id number] RECD: 08/22/14 STATUS: SOUT _ ORDERED: LEVEL III FINAL DIAGNOSIS Wrist, right, excision: Benign synovial and fibrovascular tissue fragments compatible with clinical history of ganglion cyst. PRE-OPERATIVE DIAGNOSIS Right wrist ganglion GROSS DESCRIPTION The specimen is received in formalin labeled Drew Ornelas, Ganglion Cyst Right Wrist and consists of two zavala-pink to zavala-white, irregular rubbery portions of tissue averaging 0.5 x 0.4 x 0.2 cm. which are submitted entirely in one cassette. Signed (signature on file) Shira Larios MD 1751 END OF REPORT * ML=Testing performed at Main Lab DEPARTMENT OF PATHOLOGY, [address] [place] [address] Marshal Conde M.D. Director [facility] # [id number] 3 SCANT NORMAL URETHRAL OR PERINEAL NILAM 4 FAX RESULTS TO MEREDITH ESCOBEDO MD AT FAX NUMBER [phone] 5 -- REFERENCE VALUE -- 25-HYDROXY D TOTAL (D2+D3) Optimum levels in the normal population are 25-80 Test Performed by: [facility] Dpt of Lab Med and Pathology [address] [place] [address] Tape Machine Tailer: Graham Uriarte III, M.D. 6 FINAL: NO GROWTH DAY 2 (<1,000 CFU/mL) 7 Anion gap measurement may be of limited value in the presence of any alkalosis, especially in a combined acid base disorder. . 8 Note change in reference range as of 06/15/08. The change was based on recommendations from the [place] [employer]. 9 Please note change in reference range effective 08 . 10 A metabolite of Naproxen, O-desmethylnaproxen, has been shown to interfere with the [place] method for measuring total bilirubin. Samples from patients who have taken Naproxen have shown spurious elevation in total bilirubin levels. 11 If is still suspected, please repeat test after 48 to 72 hours. . 12 NEGATIVE FOR GROUP A BETA STREPTOCOCCUS Procedures Date CPT Code Description Status 09/08/2017 59903 EEG Recording Awake & Drowsy Completed 05/07/2016 59196 EEG Recording Awake & Drowsy Completed 09/06/2015 89292 Neuroplasty &/Or Transposition; Ulnar Nerve AT Elbow Completed 09/06/2015 70279 Neuroplasty &/Or Transposition; Ulnar Nerve AT Elbow Completed 07/12/2015 28912 Neuroplasty &/Or Transposition; Ulnar Nerve AT Elbow Completed 07/12/2015 90597 Neuroplasty &/Or Transposition; Ulnar Nerve AT Elbow Completed 07/12/2015 93659 Neuroplasty &/Or Transposition; Ulnar Nerve AT Elbow Completed 07/12/2015 95868 Dequervains-Tendon Sheath Incision/Extensor Completed Sheath,Wrist 08/22/2014 03095 Excision Ganglion Wrist/ Dorsal Or Volar; Primary Completed 08/22/2014 38064 Dequervains-Tendon Sheath Incision/Extensor Completed Sheath,Wrist 07/18/2014 78633 Nerve Conduction, Sensory Completed 07/18/2014 69549 Nerve Conduction, Motor W/F-Wave Study Completed 06/22/2014 77205 Rad Exam; Wrist, Comp, Min 3 Views Completed 05/24/2014 59295 Rad Exam; Wrist, Comp, Min 3 Views Completed 05/24/2014 90950 Rad Exam; Wrist, Comp, Min 3 Views Completed 05/05/2014 89378 Short Arm Splint Application Completed 05/05/2014 88580 Short Arm Splint Application Completed 04/14/2014 18677 Rad Exam; Wrist Limited, 2 Views Completed 04/14/2014 84775 Short Arm Cast Application Completed 03/30/2014 65305 Short Arm Cast Application Completed 01/14/2012 Mammogram Completed 05/30/2011 65233 Partial Excision Bone Talus/Calcaneus Completed 05/27/2011 09993 Rad Exam; Foot Comp Completed 05/02/2011 09205 Rad Exam; Foot Comp Completed 06/22/2009 Bone Mineral Density Test Completed Encounters Type Date Location Provider CPT E/M Dx Office Visit 06/29/2018 [facility] [place] [address] S80.01xA 9:30a C.M.A. S80.01xD Office Visit 05/04/2018 9:00a [facility] Jaxdenisa Vincent, 67887 R56.9 Services Of Computer Applications Engineer M.D. R41.3 G44.301 Office Visit 05/04/2018 1:15p [facility] [place] [address] S80.01xA C.M.A. S83.241A S80.01xD Office Visit 03/30/2018 9:30a [facility] [place] [address] M25.561 C.M.A. S80.01xA S83.241A S80.01xA Office Visit 09/11/2017 3:45p [facility] Aurelio Kaur, 16024 R56.9 Services Of Computer Applications Engineer M.D. Office Visit 09/07/2017 8:15a [facility] Aurelio Kaur, 43155 R56.9 Services Of Computer Applications Engineer M.D. Office Visit 08/09/2017 3:42p [facility] [place] [address] R56.9 Assoc, Hospitalists S32.10xA F32.89 S01.01xA Office Visit 08/08/2017 10:35a [facility] Aurelio Kaur 73845 R56.9 M.D. Office Visit 08/08/2017 3:42p [facility], [place] [address] R56.9 Hospitalists S32.10xA F32.89 S01.01xA Office Visit 08/07/2017 3:41p [facility], [place] [address] R56.9 Hospitalists S32.10xA F32.89 S01.01xA Office Visit 02/19/2017 9:30a [facility] [place] [address] R10.12 Computer Applications Engineer Office Visit 09/05/2016 8:30a [facility] [place] [address] M65.4 C.M.A. G56.21 G56.91 Office Visit 06/09/2016 9:15a [facility] [place] [address] G43.109 Services Of Computer Applications Engineer R55 Office Visit 05/26/2016 10:45a [facility] Of Savi Winters M.D. 01827 M25.521 C.M.A. M25.531 G56.21 Office Visit 04/16/2016 9:30a [facility] Savi Winters M.D. 25884 M25.521 C.M.A. M25.521 M25.531 M25.531 G56.21 G56.21 M77.11 M77.11 Office Visit 04/08/2016 1:00p [facility] [place] [address] R55 Of Computer Applications Engineer G43.109 Office Visit 01/25/2016 8:15a [facility] Of Saiv Winters M.D. 60778 G56.21 C.M.A. M25.521 M25.531 Z48.89 Office Visit 12/07/2015 10:30a [facility] Savi Winters M.D. 53574 G56.21 C.M.A. Z48.89 Office Visit 08/23/2015 10:30a [facility] [place] [address] M25.521 C.M.AMarcelino W19.xxxA Office Visit 06/20/2015 9:00a [facility] Annelise Emmanuel, 67426 727.04 Of Nita Reyes 354.2 Office Visit 03/14/2015 8:00a [facility] Annelise Emmanuel, 34813 727.04 Of Nita Reyes 842.00 Office Visit 01/18/2015 9:15a [facility] Hiral Calderon 14802 727.04 Of Nita Reyes 727.41 Office Visit 11/30/2014 4:30p [facility] Hiral Calderon 79950 727.41 Of Nita Reyes 727.04 Office Visit 08/19/2014 2:13p [facility] [place] [address] 780.97 Hospitalists 305.40 244.9 311 Office Visit 08/18/2014 2:12p [facility] [place], [address] 780.97 Assoc, Hospitalists MMerrill 493.90 244.9 311 Office Visit 07/27/2014 1:15p [facility] Hiral Calderon, 20486 727.04 Of C.MMeredith Reyes 727.41 Office Visit 07/06/2014 8:00a [facility] Hiral Calderon, 57273 842.00 Of CMarcelinoMMeredith Reyes 727.41 727.05 354.0 Office Visit 06/22/2014 1:30p [facility] Hiral Calderon, 38164 842.00 Of Nita Reyes Office Visit 06/14/2014 2:15p [facility] Kevin Felix M.D. 04636 727.05 Of C.M.A. 842.00 Office Visit 06/07/2014 8:00a [facility] Kevin Felix M.D. 54142 727.05 C.M.A. 842.00 Office Visit 05/24/2014 3:45p [facility] Kevin Felix M.D. 28399 842.00 C.M.A. 842.00 Office Visit 05/23/2014 10:30a [facility] Keven Taveras, 30223 724.4 Of Tonio Reyes Office Visit 05/05/2014 2:00p [facility] Asha Cadena, 94251 842.00 C.M.A. RPA-C 842.00 Office Visit 04/14/2014 10:15a [facility] Of Kierra Blevins RPA-C 19005 842.00 C.M.A. 922.32 847.2 Office Visit 03/30/2014 1:30p [facility] Kevin Felix M.D. 89757 842.00 C.M.A. 922.32 847.2 Office Visit 05/27/2011 11:15a [facility] Of Ld Plunkett M.D. 82068 718.00 C.M.A. 718.17 Office Visit 05/22/2011 1:15p [facility] Jose Miguel Coats 21650 718.10 Of C.M.AMaggie Palacios Office Visit 05/14/2011 10:15a [facility] Ld Plunkett M.D. 58442 718.10 Of C.M.A. Office Visit 05/02/2011 8:45a [facility] Kierra NADEEN Valdez 82271 718.17 Of C.M.A. Office Visit 04/14/2011 1:00p [facility] Ld Plunkett M.D. 14534 825.20 Of C.M.A. Office Visit 09/17/2009 9:20a DO Not Use Computer Applications Engineer AT ThanPatricia figueroa, 38715 788.1 [facility] M.D. Office Visit 08/17/2009 3:20p DO Not Use Computer Applications Engineer AT [facility], 78530 724.5 [facility] M.DMarcelino 729.5 Office Visit 08/02/2009 11:00a DO Not Use Computer Applications Engineer AT ThanPatricia figueroa, 48760 786.2 [facility] M.D. 780.60 Office Visit 07/26/2009 4:00p DO Not Use Computer Applications Engineer AT Patricia Alonzo, 26610 786.2 [facility] M.D. 780.60 Office Visit 07/09/2009 3:20p DO Not Use Computer Applications Engineer AT ThanPatricia figueroa, 68007 786.2 [facility] M.D. 473.9 Office Visit 06/29/2009 3:00p DO Not Use Computer Applications Engineer AT Darvin Amezquita, 64695 620.2 [facility] M.D. 346.00 339.10 Office Visit 06/18/2009 10:40a DO Not Use Computer Applications Engineer AT Patricia Alonzo, 08332 620.2 [place] M.DMarcelino 719.45 V17.81 Office Visit 06/05/2009 9:30a DO Not Use Computer [place] [address] 723.1 [place] Office Visit 05/24/2009 9:40a DO Not Use Computer Applications Engineer AT Patricia Alonzo M.D. 64670 788.41 [facility] 244.9 592.0 Office Visit 05/08/2009 1:00p DO Not Use Computer [place] [address] 719.47 [facility] V58.32 Office Visit 03/28/2009 10:00a DO Not Use Computer Applications Engineer AT Patricia Alonzo, 59306 461.8 Imer Reyes Office Visit 03/26/2009 11:00a DO Not Use Computer Applications Engineer AT Patricia Alonzo, 11864 465.9 Imer Reyes 723.1 Office Visit 03/22/2009 8:30a DO Not Use Computer [place] [address] 719.47 [facility] 723.1 Plan of Care Future Appointment(s):08/31/2018 8:00 am - Amanda Morales MD at [facility].M.A.08/26/2018 10:00 am - Aurelio Kaur M.D. at [facility]07/15/2018 - Lion Ramirez, MDR10.12 Left upper quadrant painR10.817 Generalized abdominal tendernessInstructions:Go to the emergency room
--- OUTSIDE RECORDS SUMMARY | 2018-07-15 16:04 | XMS REPORT ---
:1965 External Reference #:[id number] Author Organization [employer] Address [address] [address] [place] [address] Phone [phone] Care Team Providers Name Role Phone Ignacio Garcias MD Primary Care Physician Unavailable Payers Type Date Identification Numbers Payment Provider Subscriber Commercial Policy Number: [id number] [facility] Higinio Blackwell Group Name: [id number] [address] [address] PayID: [id number] MORALES [place] [address] Workers Compensation Onset: 2018 Policy Number: State Matt Ornelas [id number] Group Number: [phone] [address] Group Name: Ext. [id number] [place] [address] PayID: [id number] Workers Effective: Policy Number: Doroteo Ornelas Compensation 2016 [id number] [place] Onset: 2014 Group Number: [id number] [address] [address] PayID: [place] [id number] Workers Expires: Policy Number: Doroteo Ornelas Compensation 2016 [id number] [place] Onset: 2014 PayID: MADIHA [address] VALAR[place] Perez [phone] Workers Onset: 2014 Policy Number: Doroteo Ornelas Compensation [id number] [place] PayID: MADIHA [address] [place] [phone] Problems Date Description Provider Status Onset: 07/10/2015 [...] Description Comments Marital Status 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 2013 hours as needed pain [place] 10/17/ Hx Tablets 5-325mg 30tab 1-2 tabs Hiral 2013 - s by mouth Calderon, 12/24/ q 6 h as M.D. 2014 needed for pain [place] 07/27/ Hx Tablets 5-325mg 40tab 1-2 tabs [...] as needed M.D. 2013 pain and spasms [place] 03/30/ Hx Tablets 5-325mg 50tab 1-2 tabs Kevin 2013 by mouth Elvira, 03/30/ q4 as M.D. 2013 needed pain [place] 03/30/ Hx Tablets 5-325mg 6tabs 1-2 by [...] Dimitrios, 05/04/ hrs prn M.D. 2013 pain [place] 05/02/ Hx Tablets 5-325mg 40tab 1-2 po [...] 2008 - s hours prn Patricia, 03/26/ muscle Amy 2008 spasms Wellbutrin SR / Hx Tablets [...] 30mg 1 by Unknown 0000 - mouth every day 2016 Nitrofurantoin / Hx Capsules 100mg [place], Monohydrate/Macr 0000 - Tiffanie ocrystals AMarcelino, LÁZARO 2016 Diazepam / Hx Tablets 5mg Take One Unknown 0000 - Tablet By Mouth 2016 Every 8 Hours as Needed For Anxiety Maximum D Bupropion HCL ER / Hx Tablets ER 150mg Klamath, (SR) 0000 - 12HR Ignacio 09/06/ 2016 Oxycodone-Acetam / Hx Tablets 10-325mg K[place]ath, inophen 0000 - Ignacio 09/06/ 2016 Medications Administered in Office Medication Date Status Form Strength Qnty SIG Indications Ordering Provider Tetanus,Unspec Administered Injection Unknown ified 012 Vital Signs Date Vital Result Comment 07/13/2018 Height 62 inches 5'2" Weight 113.00 [...] Ua Color YELLOW W/Microscopic Appearance-Urine CLEAR Specific Kingsley-Ur 1.004 Low 1.010-1.030 Esterase-Urine NEGATIVE Negative Nitrite NEGATIVE Negative Pzgdmgqsujaa-Cp-YBL NEGATIVE Negative Protein-Urine NEGATIVE Negative PH-Urine 6.0 [...] Vitamin D Total 42 ng/mL () 5 Urinalysis W/Microscopic 05/24/2009 Ua Color YELLOW Appearance-Urine CLEAR Specific Kingsley-Ur 1.011 1.010-1.030 Esterase-Urine NEGATIVE Negative Nitrite NEGATIVE Negative Asbqkyfpmmtv-Zh-ATY NEGATIVE Negative Protein-Urine NEGATIVE Negative PH-Urine 6.0 5-9 Blood-Urine 1+ Negative Ketones-Urine NEGATIVE Negative Bilirubin-Ur NEGATIVE Negative Glucose-Urine NEGATIVE Negative WBC-Urine 0-2 0-5 RBC-Urine 0-2 0-2 Epith Cells-Ur FEW Urine Culture & Sensitivi 05/24/2009 Urine Culture Sensitivi NG 6 Ua Stat 04/07/2009 Ua Color YELLOW Appearance-Urine CLEAR Specific Kingsley-Ur 1.015 1.010-1.030 Esterase-Urine NEGATIVE Negative Nitrite NEGATIVE Negative Ixpitorpuays-Dq-QTK NEGATIVE Negative Protein-Urine NEGATIVE Negative PH-Urine 7.0 [...] : [address]: Annelise Emmanuel Acct: [id number] Unit: [id number] AGE: 50 Location: [facility] Re09/06/15 SEX: F Status: [facility] SPEC: [id number] MARILUZ: 09/06/[address]: Annelise Emmanuel MD REQ: [id number] RECD: 09/06/15 STATUS: SOUT _ ORDERED: S-100, LEVEL III, [id number] FINAL DIAGNOSIS Soft tissue, right elbow, excision: [...] performed at Main Lab DEPARTMENT OF PATHOLOGY, [facility] [employer] [place], [place] [address] Marshal Conde M.D. Director TRICIALA # [id number] 2 RUN DATE: 08/23/14 [facility] LAB LIVE PAGE 1 RUN TIME: [address]51 [facility] [employer] [place], [place] [address] Specimen Inquiry Name: DREW ORNELAS : [address]: Hiral Calderon MD Acct: [id number] Unit: [id number] AGE: 49 Location: [facility] Re08/22/14 SEX: F Status: [facility] SPEC: [id number] MARILUZ: 08/22/14- SUBM DR: Hiral Calderon MD REQ: [id number] RECD: 08/22/14 STATUS: SOUT _ ORDERED: LEVEL [...] performed at Main Lab DEPARTMENT OF PATHOLOGY, [address] [place] [address] Marshal Conde M.D. Director [facility] # [id number] 3 SCANT NORMAL URETHRAL OR PERINEAL NILAM 4 FAX RESULTS TO MEREDITH ESCOBEDO MD AT FAX NUMBER [phone] 5 -- REFERENCE VALUE -- 25-HYDROXY D TOTAL (D2+D3) Optimum levels in the normal population are 25-80 Test Performed by: [facility] Dpt of Lab Med and Pathology [address] [place] [address] Dining Car Server: Graham Uriarte III, M.D. 6 FINAL: NO GROWTH DAY 2 (<1,000 CFU/mL) 7 Anion gap measurement may be of limited value in the presence of any alkalosis, especially in a combined acid base disorder. . 8 Note change in reference range as of 06/15/08. The change was based on recommendations from the [place] [employer]. 9 Please note change in reference range effective 08 . 10 A metabolite of Naproxen, O-desmethylnaproxen, has been shown to interfere with the [place] method for measuring total bilirubin. Samples from patients who have taken Naproxen have shown spurious elevation in total bilirubin levels. 11 If is still suspected, please repeat test after 48 to 72 hours. . 12 NEGATIVE FOR GROUP A BETA STREPTOCOCCUS Procedures Date CPT Code Description Status 09/08/2017 63729 EEG Recording Awake & Drowsy Completed 05/07/2016 36183 EEG Recording Awake & Drowsy Completed 09/06/2015 87412 Neuroplasty &/Or Transposition; Ulnar Nerve AT Elbow Completed 09/06/2015 91357 Neuroplasty &/Or Transposition; Ulnar Nerve AT Elbow Completed 07/12/2015 58542 Neuroplasty &/Or Transposition; Ulnar Nerve AT Elbow Completed 07/12/2015 99629 Neuroplasty &/Or Transposition; Ulnar Nerve AT Elbow Completed 07/12/2015 73307 Neuroplasty &/Or Transposition; Ulnar Nerve AT Elbow Completed 07/12/2015 00032 Dequervains-Tendon Sheath Incision/Extensor Completed Sheath,Wrist 08/22/2014 93269 Excision Ganglion Wrist/ Dorsal Or Volar; Primary Completed 08/22/2014 94887 Dequervains-Tendon Sheath Incision/Extensor Completed Sheath,Wrist 07/18/2014 94448 Nerve Conduction, Sensory Completed 07/18/2014 53939 Nerve Conduction, Motor W/F-Wave Study Completed 06/22/2014 49906 Rad Exam; Wrist, Comp, Min 3 Views Completed 05/24/2014 29636 Rad Exam; Wrist, Comp, Min 3 Views Completed 05/24/2014 01172 Rad Exam; Wrist, Comp, Min 3 Views Completed 05/05/2014 54794 Short Arm Splint Application Completed 05/05/2014 42450 Short Arm Splint Application Completed 04/14/2014 33144 Rad Exam; Wrist Limited, 2 Views Completed 04/14/2014 41074 Short Arm Cast Application Completed 03/30/2014 50631 Short Arm Cast Application Completed 01/14/2012 Mammogram Completed 05/30/2011 99841 Partial Excision Bone Talus/Calcaneus Completed 05/27/2011 51626 Rad Exam; Foot Comp Completed 05/02/2011 35758 Rad Exam; Foot Comp Completed 06/22/2009 Bone Mineral Density Test Completed Encounters Type Date Location Provider CPT E/M Dx Office Visit 06/29/2018 [facility] [place] [address] S80.01xA 9:30a C.MMeredith S80.01xD Office Visit 05/04/2018 9:00a Kwame Kaur, 05191 R56.9 Services Of Tonio Reyes R41.3 G44.301 Office Visit 05/04/2018 1:15p [facility] [place] [address] S80.01xA C.M.A. S83.241A S80.01xD Office Visit 03/30/2018 9:30a [facility] [place] [address] M25.561 C.M.A. S80.01xA S83.241A S80.01xA Office Visit 09/11/2017 3:45p [facility] Dennyskuldeep Kaur, 88094 R56.9 Services Of Broiler Chef Or Cook M.D. Office Visit 09/07/2017 8:15a [facility] Aurelio Kaur 92042 R56.9 Services Of Broiler Chef Or Cook M.D. Office Visit 08/09/2017 3:42p [facility] [place] [address] R56.9 Assoc, Hospitalists S32.10xA F32.89 S01.01xA Office Visit 08/08/2017 10:35a [facility] Aurelio Kaur 80964 R56.9 M.D. Office Visit 08/08/2017 3:42p [facility], [place] [address] R56.9 Hospitalists S32.10xA F32.89 S01.01xA Office Visit 08/07/2017 3:41p [facility], [place] [address] R56.9 Hospitalists S32.10xA F32.89 S01.01xA Office Visit 02/19/2017 9:30a [facility] [place] [address] R10.12 Broiler Chef Or Cook Office Visit 09/05/2016 8:30a [facility] [place] [address] M65.4 C.M.A. G56.21 G56.91 Office Visit 06/09/2016 9:15a [facility] [place] [address] G43.109 Services Of Broiler Chef Or Cook R55 Office Visit 05/26/2016 10:45a [facility] Of Savi Winters M.D. 63034 M25.521 C.M.A. M25.531 G56.21 Office Visit 04/16/2016 9:30a [facility] Savi Winters M.D. 35776 M25.521 C.M.A. M25.521 M25.531 M25.531 G56.21 G56.21 M77.11 M77.11 Office Visit 04/08/2016 1:00p [facility] [place] [address] R55 Of [facility] G43.109 Office Visit 01/25/2016 8:15a [facility] Of Savi Winters M.D. 44826 G56.21 C.M.AMarcelino M25.521 M25.531 Z48.89 Office Visit 12/07/2015 10:30a [facility] Of Savi Winters M.D. 86161 G56.21 C.M.A. Z48.89 Office Visit 08/23/2015 10:30a [facility] [place] [address] M25.521 C.M.AMarcelino W19.xxxA Office Visit 06/20/2015 9:00a [facility] Annelise Emmanuel, 33556 727.04 Of Nita Reyes 354.2 Office Visit 03/14/2015 8:00a [facility] Annelise Emmanuel 55411 727.04 Of Nita Reyes 842.00 Office Visit 01/18/2015 9:15a [facility] Hiral Calderon 38099 727.04 Of Nita Reyes 727.41 Office Visit 11/30/2014 4:30p [facility] Hiral Calderon 21222 727.41 Of Nita Reyes 727.04 Office Visit 08/19/2014 2:13p [facility] [place]oc,[place] [address] 780.97 Hospitalists 305.40 244.9 311 Office Visit 08/18/2014 2:12p [facility] [place], [address] 780.97 Assoc,pc Hospitalists M.DMarcelino 493.90 244.9 311 Office Visit 07/27/2014 1:15p [facility] Hiral Calderon 39732 727.04 Of Nita Reyes 727.41 Office Visit 07/06/2014 8:00a [facility] Hiral Calderon 64310 842.00 Of C.MMeredith Reyes 727.41 727.05 354.0 Office Visit 06/22/2014 1:30p [facility] Hiral Calderon, 37363 842.00 Of C.MMeredith Reyes Office Visit 06/14/2014 2:15p [facility] Kevin Felix M.D. 34464 727.05 Of C.M.A. 842.00 Office Visit 06/07/2014 8:00a [facility] Of Kevin Felix M.D. 29917 727.05 C.M.A. 842.00 Office Visit 05/24/2014 3:45p [facility] Of Kevin Felix M.D. 04164 842.00 C.M.A. 842.00 Office Visit 05/23/2014 10:30a [facility]surgery Services Keven [place], [address] 724.4 Of [facility] Amy Office Visit 05/05/2014 2:00p [facility] Asha Cadena, 54407 842.00 C.M.A. RPA-C 842.00 Office Visit 04/14/2014 10:15a [facility] Of NADEEN Dang 33071 842.00 C.M.A. 922.32 847.2 Office Visit 03/30/2014 1:30p [facility] Of Kevin Felix M.D. 25698 842.00 C.M.A. 922.32 847.2 Office Visit 05/27/2011 11:15a [facility] Of Ld Plunkett M.D. 99251 718.00 C.M.A. 718.17 Office Visit 05/22/2011 1:15p [facility] Jose Miguel Coats 25264 718.10 Of C.M.A. Maggie Barron Office Visit 05/14/2011 10:15a [facility] Ld Plunkett M.D. 71297 718.10 Of C.M.A. Office Visit 05/02/2011 8:45a [facility] NADEEN Sellers 16802 718.17 Of C.M.A. Office Visit 04/14/2011 1:00p [facility] Ld Plunkett M.D. 73365 825.20 Of C.M.AMarcelino Office Visit 09/17/2009 9:20a DO Not Use Broiler Chef Or Cook AT ThanPatricia figueroa, 23245 788.1 [facility] M.D. Office Visit 08/17/2009 3:20p DO Not Use Broiler Chef Or Cook AT [facility], 56186 724.5 [facility] M.D. 729.5 Office Visit 08/02/2009 11:00a DO Not Use Broiler Chef Or Cook AT ThanPatricia figueroa, 20298 786.2 [facility] M.D. 780.60 Office Visit 07/26/2009 4:00p DO Not Use Broiler Chef Or Cook AT ThanPatricia figueroa, 77330 786.2 [facility] M.D. 780.60 Office Visit 07/09/2009 3:20p DO Not Use Broiler Chef Or Cook AT ThanPatricia figueroa, 09913 786.2 [facility] M.D. 473.9 Office Visit 06/29/2009 3:00p DO Not Use Broiler Chef Or Cook AT Darvin Amezquita, 24444 620.2 [facility] M.D. 346.00 339.10 Office Visit 06/18/2009 10:40a DO Not Use Broiler Chef Or Cook AT Patricia Alonzo, 46934 620.2 [facility] M.D. 719.45 V17.81 Office Visit 06/05/2009 9:30a DO Not [place] [employer] [address] 723.1 [facility] Office Visit 05/24/2009 9:40a DO Not Use Broiler Chef Or Cook AT Patricia Alonzo M.D. 12288 788.41 [facility] 244.9 592.0 Office Visit 05/08/2009 1:00p DO Not Use [employer] [place] [address] 719.47 [facility] V58.32 Office Visit 03/28/2009 10:00a DO Not Use Broiler Chef Or Cook AT Patricia Alonzo, 48929 461.8 [facility] M.D. Office Visit 03/26/2009 11:00a DO Not Use Broiler Chef Or Cook AT Patricia Alonzo, 70511 465.9 [facility] M.DMarcelino 723.1 Office Visit 03/22/2009 8:30a DO Not Use [employer] [address] 719.47 [facility] 723.1 Plan of Care Future Appointment(s):08/31/2018 8:00 am - Amanda Morales MD at [facility].08/26/2018 10:00 am - Aurelio Kaur M.D. at [facility]07/13/2018 - Panda Acevedo, MDM18.11 Unil primary osteoarth of first carpometacarp joint, r handG56.01 Carpal tunnel syndrome, right upper limbFollow up:Follow up:
--- OUTSIDE RECORDS SUMMARY | 2018-07-15 16:04 | XMS REPORT ---
:1965 External Reference #:[id number] Author Organization [facility] Address [address] [facility] [facility] [address] [place] [address] [place] [address] Phone [phone] Care Team Providers Name Role Phone Ignacio Garcias MD Primary Care Physician Unavailable Payers Type Date Identification Numbers Payment Provider Subscriber Commercial Policy Number: [id number] [facility] Higinio Blackwell Group Name: [id number] [address] [address] PayID: [id number] [place]ES [place] [address] Workers Compensation Onset: 2018 Policy Number: State Matt Ornelas [id number] Group Number: [phone] [address] Group Name: Ext. [id number] [place] [address] PayID: [id number] Workers Effective: Policy Number: Doroteo Ornelas Compensation 2016 [id number] [place] Onset: 2014 Group Number: [id number] [address] [address] PayID: [place] [id number] Workers Expires: Policy Number: Doroteo Ornelas Compensation 2016 [id number] Ninos[place] Onset: 2014 PayID: MADIHA [address] VALAR[place] Perez [phone] Workers Onset: 2014 Policy Number: Doroteo Ornelas Compensation [id number] Ninos[place] PayID: MADIHA [address] [place] [phone] Problems Date Description Provider Status Onset: 07/10/2015 [...] Description Comments Marital Status 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 2013 hours as needed pain [place] 10/17/ Hx Tablets 5-325mg 30tab 1-2 tabs Hiral 2013 - s by mouth Calderon, 12/24/ q 6 h as M.D. 2014 needed for pain [place] 07/27/ Hx Tablets 5-325mg 40tab 1-2 tabs [...] as needed M.D. 2013 pain and spasms [place] 03/30/ Hx Tablets 5-325mg 50tab 1-2 tabs Kevin 2013 by mouth Elvira, 03/30/ q4 as M.D. 2013 needed pain [place] 03/30/ Hx Tablets 5-325mg 6tabs 1-2 by [...] Dimitrios, 05/04/ hrs prn M.D. 2013 pain [place] 05/02/ Hx Tablets 5-325mg 40tab 1-2 po [...] day 2016 Nitrofurantoin / Hx Capsules 100mg Bertie, Monohydrate/Macr 0000 - Tiffanie ocrystals AMarcelino, LÁZARO 2016 Diazepam / Hx Tablets 5mg Take One Unknown 0000 - Tablet By Mouth 2016 Every 8 Hours as Needed For Anxiety Maximum D Bupropion HCL ER / Hx Tablets ER 150mg Story, (SR) 0000 - 12HR Ignacio 09/06/ 2016 Oxycodone-Acetam / Hx Tablets 10-325mg Story, inophen 0000 - Ignacio 09/06/ 2016 Medications Administered in Office Medication Date Status Form Strength Qnty SIG Indications Ordering Provider Tetanus,Unspec Administered Injection Unknown ified 012 Vital Signs Date Vital Result Comment 06/29/2018 Height 62 inches 5'2" Heart Rate [...] Ua Color YELLOW W/Microscopic Appearance-Urine CLEAR Specific Pompeii-Ur 1.004 Low 1.010-1.030 Esterase-Urine NEGATIVE Negative Nitrite NEGATIVE Negative Vyrkltrutgzn-Yn-CQC NEGATIVE Negative Protein-Urine NEGATIVE Negative PH-Urine 6.0 5-9 Blood-Urine NEGATIVE Negative Ketones-Urine NEGATIVE Negative Bilirubin-Ur NEGATIVE Negative Glucose-Urine NEGATIVE Negative WBC-Urine 0-2 0-5 RBC-Urine NONE SEEN 0-2 Epith Cells-Ur 1-3 Urine Culture & Sensitivi 09/18/2009 Urine Culture Sensitivi SN1 3 Vitamin D, 25 Hydroxy 06/18/2009 25-Hydroxy Vitamin D2 <4.0 ng/mL () 25-Hydroxy Vitamin D3 42 ng/mL () 25-Hydroxy Vitamin D Total 42 ng/mL () 4 Laboratory test finding 06/18/2009 TSH 5.22 MIU/ML 0.34-5.60 5 Urinalysis W/Microscopic 05/24/2009 Ua Color YELLOW Appearance-Urine CLEAR Specific Pompe[place]-Ur 1.011 1.010-1.030 Esterase-Urine NEGATIVE Negative Nitrite NEGATIVE Negative Tgsewjvrsxsu-Ic-IOX NEGATIVE Negative Protein-Urine NEGATIVE Negative PH-Urine 6.0 5-9 Blood-Urine 1+ Negative Ketones-Urine NEGATIVE Negative Bilirubin-Ur NEGATIVE Negative Glucose-Urine NEGATIVE Negative WBC-Urine 0-2 0-5 RBC-Urine 0-2 0-2 Epith Cells-Ur FEW Urine Culture & Sensitivi 05/24/2009 Urine Culture Sensitivi NG 6 Ua Stat 04/07/2009 Ua Color YELLOW Appearance-Urine CLEAR Specific [place]-Ur 1.015 1.010-1.030 Esterase-Urine NEGATIVE Negative Nitrite NEGATIVE Negative Yrentsbaodpm-Rf-SRY NEGATIVE Negative Protein-Urine NEGATIVE Negative PH-Urine 7.0 [...] : [address]: Annelise Emmanuel Acct: [id number] Unit: [id number] AGE: 50 Location: [facility] Re09/06/15 SEX: F Status: [facility] SPEC: [id number] MARILUZ: 09/06/[address]: Annelise Emmanuel MD REQ: [id number] RECD: 09/06/15 STATUS: SOUT _ ORDERED: S-100, LEVEL III, [id number] FINAL DIAGNOSIS Soft tissue, right elbow, excision: [...] performed at Main Lab DEPARTMENT OF PATHOLOGY, [address] [place] [address] Marshal Conde M.D. Director [facility] # [id number] 2 RUN DATE: 08/23/14 [facility] LAB LIVE PAGE 1 RUN TIME: [address] [place] [address] Specimen Inquiry Name: DREW ORNELAS : [address]: Hiral Calderon MD Acct: [id number] Unit: [id number] AGE: 49 Location: [facility] Re08/22/14 SEX: F Status: [facility] SPEC: [id number] MARILUZ: 08/22/14- SUBM DR: Hiral Calderon MD REQ: [id number] RECD: 08/22/14 STATUS: SOUT _ ORDERED: LEVEL [...] Signed (signature on file) Shira Larios MD [id number] END OF REPORT * ML=Testing performed at Main Lab DEPARTMENT OF PATHOLOGY, [address] [place] [address] Marshal Conde M.D. Director [facility] # [id number] 3 SCANT NORMAL URETHRAL OR PERINEAL NILAM 4 -- REFERENCE VALUE -- 25-HYDROXY D TOTAL (D2+D3) Optimum levels in the normal population are 25-80 Test Performed by: [facility] D[facility] of Lab Med and Pathology [address] [place] [address] Commercial Retoucher: Graham Uriarte III, M.D. 5 FAX RESULTS TO MEREDITH ESCOBEDO MD AT FAX NUMBER [phone] 6 FINAL: NO GROWTH DAY 2 (<1,000 CFU/mL) 7 Anion gap measurement may be of limited value in the presence of any alkalosis, especially in a combined acid base disorder. . 8 Note change in reference range as of 06/15/08. The change was based on recommendations from the [place] [employer]. 9 Please note change in reference range effective 08 . 10 A metabolite of Naproxen, O-desmethylnaproxen, has been shown to interfere with the Jendrassik-Natasha method for measuring total bilirubin. Samples from patients who have taken Naproxen have shown spurious elevation in total bilirubin levels. 11 If is still suspected, please repeat test after 48 to 72 hours. . 12 NEGATIVE FOR GROUP A BETA STREPTOCOCCUS Procedures Date CPT Code Description Status 09/08/2017 97600 EEG Recording Awake & Drowsy Completed 05/07/2016 23625 EEG Recording Awake & Drowsy Completed 09/06/2015 64316 Neuroplasty &/Or Transposition; Ulnar Nerve AT Elbow Completed 09/06/2015 74844 Neuroplasty &/Or Transposition; Ulnar Nerve AT Elbow Completed 07/12/2015 34738 Neuroplasty &/Or Transposition; Ulnar Nerve AT Elbow Completed 07/12/2015 63513 Neuroplasty &/Or Transposition; Ulnar Nerve AT Elbow Completed 07/12/2015 05059 Neuroplasty &/Or Transposition; Ulnar Nerve AT Elbow Completed 07/12/2015 00226 Dequervains-Tendon Sheath Incision/Extensor Completed Sheath,Wrist 08/22/2014 77849 Excision Ganglion Wrist/ Dorsal Or Volar; Primary Completed 08/22/2014 93229 Dequervains-Tendon Sheath Incision/Extensor Completed Sheath,Wrist 07/18/2014 30927 Nerve Conduction, Sensory Completed 07/18/2014 54649 Nerve Conduction, Motor W/F-Wave Study Completed 06/22/2014 62652 Rad Exam; Wrist, Comp, Min 3 Views Completed 05/24/2014 38779 Rad Exam; Wrist, Comp, Min 3 Views Completed 05/24/2014 20203 Rad Exam; Wrist, Comp, Min 3 Views Completed 05/05/2014 13953 Short Arm Splint Application Completed 05/05/2014 48525 Short Arm Splint Application Completed 04/14/2014 04276 Rad Exam; Wrist Limited, 2 Views Completed 04/14/2014 70503 Short Arm Cast Application Completed 03/30/2014 05905 Short Arm Cast Application Completed 01/14/2012 Mammogram Completed 05/30/2011 75158 Partial Excision Bone Talus/Calcaneus Completed 05/27/2011 51617 Rad Exam; Foot Comp Completed 05/02/2011 72608 Rad Exam; Foot Comp Completed 06/22/2009 Bone Mineral Density Test Completed Encounters Type Date Location Provider CPT E/M Dx Office Visit 05/04/2018 Kwame Kaur M.D. 54354 R56.9 9:00a [facility] R41.3 G44.301 Office Visit 05/04/2018 1:15p [facility] [place] [address] S80.01xA [facility] S83.241A S80.01xD Office Visit 03/30/2018 9:30a [facility] [place] [address] M25.561 C.[facility]. S80.01xA S83.241A S80.01xA Office Visit 09/11/2017 3:45p Kwame Kaur 45169 R56.9 [facility] M.D. Office Visit 09/07/2017 8:15a [facility] Dennyskuldeep Kaur, 13389 R56.9 [facility] M.D. Office Visit 08/09/2017 3:42p [facility] [place] [address] R56.9 Assoc, Hospitalists S32.10xA F32.89 S01.01xA Office Visit 08/08/2017 10:35a [facility] Aurelio Kaur, 15301 R56.9 M.D. Office Visit 08/08/2017 3:42p [facility], [place] [address] R56.9 Hospitalists S32.10xA F32.89 S01.01xA Office Visit 08/07/2017 3:41p [facility], [place] [address] R56.9 Hospitalists S32.10xA F32.89 S01.01xA Office Visit 02/19/2017 9:30a [facility] [place] [address] R10.12 [facility] Office Visit 09/05/2016 8:30a [facility] [place] [address] M65.4 C.M.A. G56.21 G56.91 Office Visit 06/09/2016 9:15a [facility] [place] [address] G43.109 [facility] R55 Office Visit 05/26/2016 10:45a [facility] Savi Winters M.D. 21665 M25.521 C.M.A. M25.531 G56.21 Office Visit 04/16/2016 9:30a [facility] Savi Winters M.D. 32110 M25.521 C.M.A. M25.521 M25.531 M25.531 G56.21 G56.21 M77.11 M77.11 Office Visit 04/08/2016 1:00p [facility] [place] [address] R55 Of [facility] G43.109 Office Visit 01/25/2016 8:15a [facility] Savi Winters M.D. 02990 G56.21 C.M.A. M25.521 M25.531 Z48.89 Office Visit 12/07/2015 10:30a [facility] Savi Winters M.D. 37571 G56.21 C.M.AMarcelino Z48.89 Office Visit 08/23/2015 10:30a [facility] [place] [address] M25.521 C.M.AMarcelino W19.xxxA Office Visit 06/20/2015 9:00a [facility] Annelise Emmanuel, 43757 727.04 Of Nita Reyes 354.2 Office Visit 03/14/2015 8:00a [facility] Annelise Emmanuel, 11147 727.04 Of Nita Reyes 842.00 Office Visit 01/18/2015 9:15a [facility] Hiral Calderon 85115 727.04 Of Nita Reyes 727.41 Office Visit 11/30/2014 4:30p [facility] Hiral Calderon, 86140 727.41 Of Nita Reyes 727.04 Office Visit 08/19/2014 2:13p [facility], [place] [address] 780.97 Hospitalists 305.40 244.9 311 Office Visit 08/18/2014 2:12p [facility] [place], [address] 780.97 Assoc, Hospitalists M.DMarcelino 493.90 244.9 311 Office Visit 07/27/2014 1:15p [facility] Hiral Calderon 16950 727.04 Of Nita Reyes 727.41 Office Visit 07/06/2014 8:00a [facility] Hiral Calderon 70520 842.00 Of Nita Reyes 727.41 727.05 354.0 Office Visit 06/22/2014 1:30p [facility] Hiral Calderon 60995 842.00 Of Nita Reyes Office Visit 06/14/2014 2:15p [facility] Kevin Felix M.D. 45461 727.05 Of C.M.A. 842.00 Office Visit 06/07/2014 8:00a [facility] Kevin Felix M.D. 24115 727.05 C.M.A. 842.00 Office Visit 05/24/2014 3:45p [facility] Kevin Felix M.D. 28025 842.00 C.M.A. 842.00 Office Visit 05/23/2014 10:30a [facility] Keven Taveras, 59440 724.4 [facility] M.D. Office Visit 05/05/2014 2:00p [facility] Asha Tammi, 73572 842.00 C.M.A. RPA-C 842.00 Office Visit 04/14/2014 10:15a [facility] Kierra Blevins RPA-C 50352 842.00 C.M.A. 922.32 847.2 Office Visit 03/30/2014 1:30p [facility] Kevin Felix M.D. 07280 842.00 C.M.A. 922.32 847.2 Office Visit 05/27/2011 11:15a [facility] Ld Plunkett M.D. 94945 718.00 C.M.A. 718.17 Office Visit 05/22/2011 1:15p [facility] Jose Miguel Coats 51354 718.10 Of C.M.A. Maggie Barron Office Visit 05/14/2011 10:15a [facility] Ld Plunkett M.D. 20668 718.10 Of C.M.A. Office Visit 05/02/2011 8:45a [facility] MATTHEW SellersC 09363 718.17 Of C.M.A. Office Visit 04/14/2011 1:00p [facility] Ld Plunkett M.D. 67060 825.20 Of C.M.A. Office Visit 09/17/2009 9:20a DO Not Use [facility] AT Patricia Alonzo, 27179 788.1 [facility] M.DMarcelino Office Visit 08/17/2009 3:20p DO Not Use [employer] [facility] AT Caterina Cotton, 78375 724.5 [facility] M.D. 729.5 Office Visit 08/02/2009 11:00a DO Not Use [employer] [facility] AT ThankprtMehnazra, 99499 786.2 [facility] M.D. 780.60 Office Visit 07/26/2009 4:00p DO Not Use [facility] AT ThanMehnaz figueroara, 92411 786.2 [facility] M.D. 780.60 Office Visit 07/09/2009 3:20p DO Not Use [employer] [facility] AT ThanPatricia figueroa, 86141 786.2 [facility] M.D. 473.9 Office Visit 06/29/2009 3:00p [facility] Use [facility] Florent[facility], 51695 620.2 [facility] M.D. 346.00 339.10 Office Visit 06/18/2009 10:40a DO Not Use [employer] [facility] AT ThanPatricia figueroa, 17668 620.2 [facility] M.D. 719.45 V17.81 Office Visit 06/05/2009 9:30a [place] [address] 723.1 [facility] Office Visit 05/24/2009 9:40a DO Not Use [employer] [facility] AT ThanPatricia figueroa M.DMarcelino 64374 788.41 [facility] 244.9 592.0 Office Visit 05/08/2009 1:00p DO [place] [address] 719.47 [facility] V58.32 Office Visit 03/28/2009 10:00a DO Not Use [facility] AT ThanPatricia figueroa, 58156 461.8 [facility] M.D. Office Visit 03/26/2009 11:00a DO Not Use [facility] AT ThanPatricia figueroa, 06179 465.9 [facility] M.DMarcelino 723.1 Office Visit 03/22/2009 8:30a DO [place] [address] 719.47 [place] 723.1 Plan of Care Future Appointment(s):08/31/2018 8:00 am - Amanda Morales MD at [facility]08/26/2018 10:00 am - Aurelio Kaur M.D. at [facility]
== END 2018-07-15 15:30 | disposition left against medical advice (07) ==
LOC: ED 13:57
DX: K46.9 Unspecified abdominal hernia without obstruction or gangrene (principal); Z53.21 Procedure and treatment not carried out due to patient leaving prior to being seen by health care provider

== ENCOUNTER 2018-07-15 15:41 | Emergency (ER) | payer BC ==
[2018-07-15 16:03] VITALS: BP 169/122
== END 2018-07-15 16:20 | disposition left against medical advice (07) ==
LOC: ED 15:41
DX: R10.9 Unspecified abdominal pain (principal); Z53.21 Procedure and treatment not carried out due to patient leaving prior to being seen by health care provider

== ENCOUNTER 2018-07-15 16:33 | Emergency (ER) | payer BC ==
[2018-07-15 16:46] VITALS: BP 157/96
== END 2018-07-15 18:04 | disposition left against medical advice (07) ==
LOC: ED 16:33
DX: R10.9 Unspecified abdominal pain (principal); Z53.21 Procedure and treatment not carried out due to patient leaving prior to being seen by health care provider

== ENCOUNTER 2018-07-16 08:41 | Emergency (ER) | payer BC ==
[2018-07-16] MEDS ORDERED: NS 0.9% 1000 ML* 1,000 ML IV ONE (09:23)
[2018-07-16] MEDS ORDERED: Ondansetron INJ* 2 MG/ML VIAL IV ONE (09:24)
[2018-07-16] MEDS ORDERED: Ketorolac INJ* 30 MG/ML 1 ML VIAL IV PUSH ONE (09:25)
[2018-07-16] MEDS ORDERED: HYDROmorphone INJ* 2 MG/ML CARPUJECT SYRINGE IV SLOW PU ONE (10:03)
--- NOTE | 2018-07-16 10:14 | ED ---
Abdominal Pain/Female - HPI Summary HPI Summary: Patient presents with left-sided flank and abdominal pain since yesterday. She reported yesterday she had pain around her umbilicus, her left side and into her flank. She was concerned that she may have an umbilical hernia incarceration and so came to the ED. Having to wait an hour, she got nervous and decided to go directly to her surgeon's office for an evaluation. While there, Dr. Ramirez was able to reduce her umbilical hernia and said it did not look like she had a hernia incarceration however she did have a bloated abdomen and was tender throughout and so there was concern for other issues, one possibly being obstruction as patient has a history of multiple belly surgeries with adhesions and bowel obstruction. She came back to the ED for evaluation and while she was waiting received some heat which she reports took the edge off. She decided to go home instead of being seen but got stuck in her car in the parking lot due to pain so called the ambulance who brought her back in to the hospital. I think he is now. This is her he actually no - History of Current Complaint Chief Complaint: Dave Stated Complaint: LT FLANK PAIN Time Seen by Provider: 07/16/18 09:09 Hx Obtained From: Patient Hx Last Menstrual Period: 2013 Pain Intensity: 8 Allergies/Adverse Reactions: Allergies Allergy/AdvReac Type Severity Reaction Status Date / Time codeine Allergy Severe Rash Verified 07/16/18 10:53 Iodinated Contrast- Oral and Allergy Severe Difficulty Verified 07/16/18 10:53 IV Dye Breathing latex Allergy Severe Rash Verified 07/16/18 10:53 Latex, Natural Rubber Allergy Severe Hives Verified 07/16/18 10:53 morphine Allergy Severe Rash Verified 07/16/18 10:53 Penicillins Allergy Severe Anaphylatic Verified 07/16/18 10:53 Shock Sulfa (Sulfonamide Allergy Severe Rash Verified 07/16/18 10:53 Antibiotics) meclizine Allergy Mild Anxiety Verified 07/16/18 10:53 metoclopramide [From Reglan] Allergy Mild Anxiety Verified 07/16/18 10:53 prochlorperazine Allergy Mild Anxiety Verified 07/16/18 10:53 [From Compazine] PMH/Surg Hx/FS Hx/Imm Hx Endocrine/Hematology History: Reports: Hx Thyroid Disease - ON DAILY MEDS Denies: Hx Anticoagulant Therapy, Hx Diabetes Cardiovascular History: Denies: Hx Congestive Heart Failure, Hx Deep Vein Thrombosis, Hx Hypertension , Hx Myocardial Infarction, Hx Pacemaker/ICD Respiratory History: Reports: Hx Asthma - INHALER PRN Denies: Hx Chronic Obstructive Pulmonary Disease (COPD), Hx Lung Cancer, Hx Pneumonia, Hx Pulmonary Embolism GI History: Denies: Hx Gall Bladder Disease, Hx Gastrointestinal Bleed, Hx Ulcer, Hx Urosepsis History: Reports: Hx Kidney Stones - HX OF Denies: Hx Renal Disease Comment Only: Other Problems/Disorders - DENIES ANY PAIN OR PROBLEMS R/T KIDNEY STONES Musculoskeletal History: Denies: Hx Osteoporosis Sensory History: Reports: Hx Contacts or Glasses - GLASSES Denies: Hx Hearing Aid Opthamlomology History: Reports: Hx Contacts or Glasses - GLASSES Neurological History: Reports: Hx Migraine - Hx OF, NONE IN YEARS, Other Neuro Impairments/Disorders - ADD Denies: Hx Dementia, Hx Seizures, Hx Transient Ischemic Attacks (TIA) Psychiatric History: Reports: Hx Anxiety, Hx Depression - daily meds Denies: Hx Panic Disorder, Hx Schizophrenia, Hx Bipolar Disorder - Surgical History Surgery Procedure, Year, and Place: 2013 D&C [facility]. 2002 [place]. 2008 left foot surgery [facility]. 2005 TUBAL LIGATION, [facility]. 2005 GALLBLADDER REMOVED [facility]. hysterectomy 2013. R ULNAR NERVE TRANSPOSITION 09/06/15 [facility]. LEFT LEG VEIN SURGERY 07/2014partial hysterectomy [facility]. 08/22/2014 removal of cyst and nerve on rt wrist [facility]. 2006 UTERAL stents, [facility] [place]. 07/12/15 RT ELBOW ULNAR NERVE DECOMPRESSION [facility] [place] Hx Anesthesia Reactions: No - Immunization History Date of Tetanus Vaccine: 2011 Date of Influenza Vaccine: None Infectious Disease History: No Infectious Disease History: Denies: Hx Clostridium Difficile, Hx Hepatitis, Hx Human Immunodeficiency Virus (HIV), Hx of Known/Suspected MRSA, Hx Shingles, Hx Tuberculosis, Hx Known/ Suspected VRE, Hx Known/Suspected VRSA, History Other Infectious Disease, Traveled Outside the [place] in Last 30 Days - Family History Known Family History: Positive: Cardiac Disease, Hypertension, Diabetes, Other - CVA - Social History Alcohol Use: Occasionally Alcohol Amount: 1 or more glass wine/DAY Hx Substance Use: No Substance Use Type: Reports: None Hx Tobacco Use: Yes Smoking Status (MU): Former Smoker Type: Cigarettes Amount Used/How Often: 1PPD+ 5 YRS Length of Time of Smoking/Using Tobacco: 5 years Have You Smoked in the Last Year: No Physical Exam Vital Signs On Initial Exam: Initial Vitals Temp Pulse Resp BP Pulse Ox 97.3 F 90 18 131/87 100 07/16/18 08:46 07/16/18 08:46 07/16/18 08:46 07/16/18 08:46 07/16/18 08:46 Diagnostics - Vital Signs Vital Signs Temp Pulse Resp BP Pulse Ox 07/16/18 09:42 150/108 07/16/18 09:01 84 98 07/16/18 08:59 80 166/107 89 07/16/18 08:46 97.3 F 90 18 131/87 100 - Laboratory Result Diagrams: 07/16/18 10:01 07/16/18 10:01 Lab Statement: Any lab studies that have been ordered have been reviewed, and results considered in the medical decision making process. Abdominal Pain Fem Course/Dx - Course Course Of Treatment: Flank pain - feels things are moving from here adn down into groin like she's felt with kidney stones moving in the past. No john obstruction on CT - unfortunately she is allergic to PO and IV contrast. Has moved bowels since sx started Discharge - Sign-Out/Discharge Documenting (check all that apply): Patient Departure - Discharge Plan Condition: Stable Disposition: HOME Prescriptions: Ciprofloxacin TAB* [Cipro 500 MG TAB*] 500 mg PO BID #14 tab Ibuprofen TAB* [Motrin TAB* 800 MG] 800 mg PO Q8HR PRN #20 tab PRN Reason: Pain oxyCODONE/Acetamin 5/325 MG* [Percocet 5/325 TAB*] 1 tab PO Q6H PRN #20 tab MDD 4 PRN Reason: Pain Patient Education Materials: Kidney Stones (ED), Urinary Tract Infection in Women (ED), How to Strain Your Urine (ED) Referrals: Nikolas Zeng MD [Medical Doctor] - Additional Instructions: Take medications as directed - percocet may worsen constipation - drink plenty of water and consume a high fiber diet with stool softeners to prevent worsening this condition. Strain urine with every void - if you catch any stones, take with you to urology appointment - call today to schedule for Thursday *If worse, return to ED - Billing Disposition and Condition Condition: STABLE Disposition: Home
[2018-07-16 10:16] LABS: ABS Basophils 0 10^3/ul (0-0.2); ABS Eosinophils 0.1 10^3/ul (0-0.6); ABS Lymphocytes 0.9 10^3/ul (1.0-4.8); ABS Monocytes 0.6 10^3/ul (0-0.8); ABS Neutrophils 2.7 10^3/ul (1.5-7.7); ABS Nucleated RBC 0 10^3/ul; Eosinophil % 2.4 % (0-6); Hematocrit 44 % (35-47); Hemoglobin 15.1 g/dl (12.0-16.0); Lymphocyte % 21.7 % (25-47); Mean Corpuscular HGB Conc 35 g/dl (31-36); Mean Corpuscular Hemoglobin 31 pg (27-31); Mean Corpuscular Volume 91 fL (80-97); Mean Platelet Volume 8.7 um3 (7.4-10.4); Nucleated Red Blood Cells % 0.2; Platelet Count 179 10^3/ul (150-450); Red Blood Count 4.81 10^6/ul (4.00-5.40); Red Cell Distribution Width 15 % (10.5-15); White Blood Count 4.3 10^3/ul (3.5-10.8)
[2018-07-16 10:21] LABS: Urine Appearance Cloudy; Urine Blood 2+ (Negative); Urine Color Yellow; Urine Ketones Negative (Negative); Urine Protein 1+(30 mg/dL) (Negative); Urine Red Blood Cell 2+(6-10/hpf) (Absent); Urine Specific Gravity 1.017 (1.010-1.030); Urine Urobilinogen Negative (Negative); Urine White Blood Cell 3+(>20/hpf) (Absent)
[2018-07-16 10:34] LABS: INR 0.91 (0.77-1.02)
[2018-07-16 10:37] LABS: EGFR Non-African American 72.5 (>60)
[2018-07-16] MEDS ORDERED: Magnesium Sulfate 2 GM IV* 2 GM/50 ML BAG IVPB ONE (10:49)
--- NOTE | 2018-07-16 11:14 | RAD ---
CLINICAL HISTORY: Assess for stone, pyelonephritis, left flank pain COMPARISON: January 03, 2016 TECHNIQUE: Multiple contiguous axial CT scans were obtained of the abdomen and pelvis, without intravenous contrast enhancement. Coronal and sagittal multiplanar reformations are submitted for review. Oral contrast was not administered. FINDINGS: Evaluation is limited due to the lack of intravenous contrast. This limits evaluation of the solid organs and vasculature. LUNG BASES: The lung bases are clear. LIVER: The liver is normal in shape, size, contour, and attenuation. BILE DUCTS: There is no intrahepatic or extrahepatic biliary dilatation. GALLBLADDER: The gallbladder is not visualized. Surgical clips are noted in the gallbladder fossa. PANCREAS: The pancreas is normal, without mass or ductal dilatation. SPLEEN: Normal in size and appearance. UPPER GI TRACT: Evaluation of the gastrointestinal tract is limited by incomplete gastric distention. The upper GI tract is unremarkable. SMALL BOWEL AND MESENTERY: The small bowel is normal in contour, course, and caliber. There is no obstruction or dilatation. COLON: The colon is normal in contour, course, caliber. There is no pericolonic inflammatory change. ADRENALS: Normal bilaterally. KIDNEYS: The left kidney is moderately atrophic/hypoplastic compared to the right. This is similar to the previous examination. There are multiple left renal calyceal stones measuring up to 0.3 cm.. There is no appreciable ureteral stone. There is no hydronephrosis. BLADDER: The bladder is incompletely distended but is grossly normal. PELVIC ORGANS: The patient is status post partial hysterectomy by history. AORTA: The aorta is normal. IVC: Unremarkable LYMPH NODES: There is no lymphadenopathy by size criteria. ABDOMINAL WALL: There is no evidence for abdominal wall hernia. BONES AND SOFT TISSUES: There are mild diffuse degenerative changes. OTHER: None IMPRESSION: LEFT RENAL CALYCEAL STONES WITHOUT APPRECIABLE URETERAL STONES OR HYDRONEPHROSIS.
[2018-07-16] MEDS ORDERED: cefTRIAXone(*) 1 GM in NS 0.9% 50 ML* 50 ML IVPB ONE (11:21)
[2018-07-16] MEDS ORDERED: diPHENhydraMINE IV* 50 MG/ML 1 ml VIAL (BENADRYL) SLOW PUSH ONE (11:22)
[2018-07-16] MEDS ORDERED: HYDROmorphone INJ* 2 MG/ML CARPUJECT SYRINGE IM ONE (12:57)
[2018-07-16] MEDS ORDERED: Phenazopyridine TAB* 100 MG PO ONE (12:59)
[2018-07-16 13:10] VITALS: BP 147/91
--- NOTE | 2018-07-18 06:53 | PN ---
Progress Note - Progress Note Date of Service: 07/16/18 Note: Urine culture final grew Escherichia coli Patient placed on ciprofloxacin prior to discharge We will await sensitivities Penelope Ortiz, PAC
--- NOTE | 2018-07-19 07:03 | PN ---
Progress Note - Progress Note Date of Service: 07/16/18 Note: Pt. started on Cipro 07/16 for UTI. Final urine culture today is growing >100, 000 susceptible to Cipro. No change in treatment needed at this time.
== END 2018-07-16 13:33 | disposition home or self-care (01) ==
LOC: ED 08:41
DX: N39.0 Urinary tract infection, site not specified (principal); B96.20 Unspecified Escherichia coli [E. coli] as the cause of diseases classified elsewhere; N20.0 Calculus of kidney; Z87.442 Personal history of urinary calculi; E07.9 Disorder of thyroid, unspecified; J45.909 Unspecified asthma, uncomplicated; F41.9 Anxiety disorder, unspecified; F32.9 Major depressive disorder, single episode, unspecified; Z88.5 Allergy status to narcotic agent; Z88.0 Allergy status to penicillin; Z88.2 Allergy status to sulfonamides; Z88.8 Allergy status to other drugs, medicaments and biological substances; Z91.041 Radiographic dye allergy status; Z91.040 Latex allergy status; Z87.891 Personal history of nicotine dependence
CPT/HCPCS: 36415; 74176; 80053; 81003; 81015; 83605; 83690; 83735; 85025; 85610; 85730; 86140; 87040; 87077; 87086; 87186; 96365; 96372; 96375; 99284; A9270-GY; J0696; J1170; J1200; J1885; J2405; J3475

== ENCOUNTER 2019-04-04 09:37 | Day surgery (SDC) | payer BC ==
[~2019-04-04 09:37] MED LIST: Buffered Lidocaine 1% SYRIN* 1 ML/SYRINGE INTRADERM ONE; Clindamycin 900 MG IVPREMIX(* 900 MG/50 ML SDV IV ONE; Dexamethasone IV* 4 MG/ML 1 ML (4 MG) IV SLOW PU ONE; Dexamethasone IV* 4 MG/ML 1 ML (4 MG) ONE; Famotidine IV* 10 MG/ML 2 ML (20 mg) IV ONE; Famotidine IV* 10 MG/ML 2 ML (20 mg) ONE; Lactated Ringers 1000 ML Bag* 1,000 ML IV SCH
[2019-04-04] MEDS ORDERED: fentaNYL* 50 MCG/ML 2 ML VIAL (100 MCG VIAL) ONE ×4 (12:03→14:13)
[2019-04-04] MEDS ORDERED: Midazolam* 1 MG/ML 5 ML VIAL (5 MG) ONE (12:04)
[2019-04-04] MEDS ORDERED: Lidocaine 2% PF * 5 ML VIAL ONE (12:07)
[2019-04-04] MEDS ORDERED: Propofol* 10 MG/ML 20 ML BTL ONE (12:07)
[2019-04-04] MEDS ORDERED: Betamethasone INJ* 6 MG/ML 5 ML VIAL (30 MG) ONE (12:27)
[2019-04-04] MEDS ORDERED: Bupivacaine 0.25% SDV PF* 10 ML VIAL INJ ONE (12:27)
[2019-04-04] MEDS ORDERED: Ondansetron INJ* 2 MG/ML VIAL ONE (12:30)
[2019-04-04] MEDS ORDERED: oxyCODONE/Acetamin 5/325 MG* TAB PO PRN (12:47)
[2019-04-04] MEDS ORDERED: Naloxone* 0.4 MG/ML 1 ML VIAL IV PRN (12:47)
[2019-04-04] MEDS ORDERED: HYDROcodone/ACETAMIN 5-325 MG* 1 TAB PO PRN (12:47)
[2019-04-04] MEDS ORDERED: Ketorolac INJ* 30 MG/ML 1 ML VIAL IV PRN (12:47)
[2019-04-04] MEDS: fentaNYL* 50 MCG/ML 2 ML VIAL (100 MCG VIAL) IV PRN ×4 (14:05→14:50)
[2019-04-04] MEDS ORDERED: HYDROcodone/ACETAMIN 5-325 MG* 1 TAB ONE (14:13)
[2019-04-04] MEDS ORDERED: Ketorolac INJ* 30 MG/ML 1 ML VIAL ONE (14:13)
[2019-04-04 15:15] VITALS: BP 141/92
--- NOTE | 2019-04-04 16:32 | OP ---
DATE OF OPERATION: 04/04/19 - [facility] DATE OF : 69 SURGEON: Panda Acevedo MD [employer] ATTENDANT: WATSON Staples ANESTHESIOLOGIST: Dr. Bo. ANESTHESIA: General. PRE-OP DIAGNOSES: 1. Right carpal tunnel syndrome. 2. 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 3. Right recurrent volar wrist ganglion cyst. 4. Right elbow lateral epicondylitis. POST-OP DIAGNOSES: 1. Right carpal tunnel syndrome. 2. 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 3. Right recurrent volar wrist ganglion cyst. 4. Right elbow lateral epicondylitis. OPERATIVE PROCEDURE: 1. Right radial sensory nerve excision of neuroma with nerve repair with AxoGuard nerve conduit. 2. Right carpal tunnel release. 3. Excision of right recurrent volar wrist ganglion cyst. 4. Right elbow tennis elbow steroid injection with betamethasone. ESTIMATED BLOOD LOSS: 5 mL. COMPLICATIONS: None. FINDINGS: See above and below. DESCRIPTION OF PROCEDURE: Janeen was seen in the preoperative holding area. The correct site, side, and procedures were identified. We came back to the operating room where the arm was prepped and draped in the usual fashion and a time-out was performed. The arm was exsanguinated and the tourniquet was inflated to 250 mmHg. I first made a longitudinal incision in the proximal palm. Dissection was carried down through the subcutaneous tissue and palmar fascia. A self-retainer was placed. The transverse carpal ligament was released just off the radial aspect of the hook of the hamate. A Melissa retractor was placed and the release was completed distally and then I placed a retractor proximally and the remainder of the transverse carpal ligament and distal antebrachial fascia was released with a tenotomy scissors. Once I had completed the release, I checked to make sure everything was nicely decompressed, it was, so we irrigated out the wound and the skin was closed with 4- 0 nylon suture. Next, I reopened her prior incision where she had the volar wrist ganglion cyst excised. Dissection was carried down. There was a large traversing vein that was retracted radially. I then encountered the apex of the cyst. I used the tenotomy scissors to separate the radial artery, which was just draped over the radial aspect of the cyst free and I dissected out radially. I then was able to perform a marginal excision of the cyst. There was a lot of scar tissue, but I was able to withdraw that. I retracted all the way back to the volar aspect of the radiocarpal joint where I amputated the cyst. The stalk was definitively seen coming off the volar wrist joint right near the area of the scapholunate joint. I cauterized this with a Bovie cautery. Everything was looking very good. I irrigated out the wound and the skin was closed with 4-0 nylon suture. At this point, we had the steroid ready, so I used 2 mL of 0.25% plain Marcaine and 12 mg of betamethasone and I injected that in multiple locations all about the lateral epicondyle. This was done with a 25-gauge needle. Once I had injected the origin of the common extensor tendon with steroid, I withdrew the needle. Lastly, I made a longitudinal incision over the radial styloid just on the dorsal aspect of her prior de Quervain's incision, which was a transverse incision. Dissection was carried down through the scar tissue. I encountered the radial sensory nerve proximally. As I came distally, a very large john neuroma was encountered. The nerve was dissected free proximally and distally. There were just a few fibers in the nerve that were still in continuity and this was holding the two edges of the nerve nicely apposed. The neuroma had occurred just after a branching point of the radial nerve and so there was another sensory branch just little bit dorsal to that that was compromised as well. I used an 11-blade and the tongue depressor to cut the nerve just proximal and distal to the neuroma until I had nice fascicles. I then used an AxoGuard nerve connector to repair the nerve. The nerve had just enough play in it that with one 9-0 nylon suture, I was able to appose the more volar branch of the nerve. That was the definitely larger branch that was sewed together with 4 interrupted 9-0 nylon sutures. This was an excellent repair. The conduit was in place as well. Everything was looking very good. I then in similar fashion repaired the more dorsal branch with 9-0 nylon suture and another AxoGuard nerve conduit. Once the nerve was nicely repaired, I irrigated out the wound. The skin was closed with 4-0 nylon suture. I did think it was worth repairing the nerve as I could get the edges easily apposed and I thought this might give her a chance to regain some sensation. Certainly , there is a chance that it could go on to develop another neuroma, but given that I was able to get a nice quality repair, I think it was very much worth doing. After the skin was closed, Marcaine was infiltrated around all the operative sites. The wounds were dressed with dressings and then a wrist splint was applied holding the wrist in gentle radial deviation. Tourniquet was deflated and the hand pinked up immediately. She was taken to the recovery room in stable condition. [id number] #: [id number] RYAN
== END 2019-04-04 15:34 | disposition home or self-care (01) ==
LOC: OR 09:37
PROVIDERS: ATTEND Orthopaedic Surgery Hand Surgery
DX: G56.31 Lesion of radial nerve, right upper limb (principal); G56.01 Carpal tunnel syndrome, right upper limb; M67.431 Ganglion, right wrist; M77.11 Lateral epicondylitis, right elbow; J45.909 Unspecified asthma, uncomplicated; E03.9 Hypothyroidism, unspecified; F90.9 Attention-deficit hyperactivity disorder, unspecified type; Z87.891 Personal history of nicotine dependence; Z88.0 Allergy status to penicillin; Z88.8 Allergy status to other drugs, medicaments and biological substances
CPT/HCPCS: 88304; C1776; J0702; J1100; J1885; J2250; J2405; J2704; J3010; J3490

== ENCOUNTER 2019-09-20 15:41 | Emergency (ER) | payer BC, OTHER ==
--- OUTSIDE RECORDS SUMMARY | 2019-09-20 15:48 | XMS REPORT | Continuity of Care Document ---
:1965 External Reference #:[id number] Author Name Yoan Mohan M.D. Address [address] [place] [address] Care Team Providers Name Role Phone Ignacio Garcias M.D. - Family Medicine Care Team Information Certified Tumor Registrar [phone] Problems Active Problems Provider Date Hypertensive disorder Onset: Anxiety Onset: Thyroiditis Onset: Injury of conjunctiva and corneal abrasion Yoan Mohan M.D. Onset: without foreign body, left eye, initial encounter Social History Type Date Description Comments Sex Unknown ETOH Use Consumes 1 glass of wine per day Tobacco Use Start: Unknown Patient has never smoked Recreational Drug Use Denies Drug Use Smoking Status Reviewed: 08/09/19 Patient has never smoked Allergies, Adverse Reactions, Alerts Active Allergies Reaction Severity Comments Date Iodine 08/09/2019 Penicillin 08/09/2019 Morphine 08/09/2019 Compazine 08/09/2019 Latex 08/09/2019 Barium Sulfate 08/09/2019 Medications Active Medications SIG Qnty Indications Ordering Provider Date Erythromycin Apply To The 1Tube S05.02xA Yoan Mohan, 08/09/2019 5mg/GM Left Eye 2X/Day M.DMarcelino Ointment For 5 Days Wellbutrin XL Unknown 300mg Tablets ER 24HR Synthroid Unknown 125mcg Tablets Triamterene/Hydrochlor Take One Tablet Unknown othiazide By Mouth Every 75-50mg Tablets Day History Medications No Active Medications Yoan Mohan M.D. 08/09/2019 - 08/09/2019 Immunizations Description No Information Available Vital Signs Description No Information Available Results Description No Information Available Procedures Description No Information Available Medical Devices Description No Information Available Encounters Description No Information Available Assessments Date Code Description Provider 08/09/2019 S05.02xA Injury of conjunctiva and corneal abrasion Yoan Mohan M.D. without foreign body, left eye, initial encounter Plan of Treatment 08/09/2019 - Yoan Mohan M.D.S05.02xA Injury of conjunctiva and corneal abrasion without foreign body, left eye, initial encounterNew Medication: Erythromycin 5 mg/GM - Apply To The Left Eye 2X/Day For 5 DaysComments:Smoking can increase the risk of developing or worsening any eye related disease, as well as affect your overall health. If you are a smoker, we strongly recommend that you quit.If you are not a smoker, we strongly recommend that you do not start. There is a scratch on the surface of your left eye.It will heal on it's own. Use artificial tears 2-3 times a day to help with the irritation. I WILL PRESCRIBE AN OINTMENT: ERYTHROMYCIN. USE 2 TIMES A DAY TO THE LEFT EYE FOR 2 WEEKS THEN STOP.Follow up:2 Year Follow Up D[facility] You can expect to have your eyes dilated at your next visit. If Dr. Mohan orders any additional testing, it may require extra time. We recommend that you bring sunglasses, as dilation drops often make you light sensitive until they wear off. We always recommend you bring someone to drive you home if you are uncomfortable driving with your eyes dilated. If you have any questions before your next visit, feel free to call our office at . Functional Status Description No Information Available Mental Status Description No Information Available Referrals Description No Information Available
[2019-09-20 15:57] VITALS: BP 128/81
--- NOTE | 2019-09-20 16:15 | UC ---
Back Pain HPI - HPI Summary HPI Summary: The patient is a 54-year-old female that injured her back this morning at work. She had been using a backpack vacuum street cleaner. She attempted to take the backpack off and it suddenly twisted her back. She has severe left lower back pain. She has pain with twisting and bending. She has pain with sitting flat. Her pain decreases if she tilts up onto her right cheek. She has no pain radiating down her leg. She has no bowel or bladder dysfunction. She has had problems with back spasms in the past. She has not tolerated of many muscle relaxers. She states she can tolerate Valium. - History of Current Complaint Chief Complaint: UCBackPain Stated Complaint: BACK INJURY Time Seen by Provider: 09/20/19 15:47 Hx Obtained From: Patient Hx Last Menstrual Period: 2013 Onset/Duration: Sudden Onset, Lasting Hours Timing: Constant Severity Initially: Moderate Severity Currently: Moderate Pain Intensity: 7 Pain Scale Used: 0-10 Numeric Back Pain: Is Diffuse Character: Aching, Throbbing, Spasmodic, Stiffness Aggravating Factor(s): Movement, Lifting, Bending Alleviating Factor(s): Rest Associated Signs And Symptoms: Positive: Negative Related History: Occupational Injury Full Body (No Head): 1 - pain and tenerness here - Allergies/Home Medications Allergies/Adverse Reactions: Allergies Allergy/AdvReac Type Severity Reaction Status Date / Time codeine Allergy Severe Rash Verified 09/20/19 15:50 Iodinated Contrast Media Allergy Severe Anaphylatic Verified 09/20/19 15:50 Shock latex Allergy Severe Rash Verified 09/20/19 15:50 Latex, Natural Rubber Allergy Severe Hives Verified 09/20/19 15:50 morphine Allergy Severe Rash Verified 09/20/19 15:50 Penicillins Allergy Severe Anaphylatic Verified 09/20/19 15:50 Shock Sulfa (Sulfonamide Allergy Severe Rash Verified 09/20/19 15:50 Antibiotics) meclizine Allergy Mild Anxiety Verified 09/20/19 15:50 metoclopramide [From Reglan] Allergy Mild Anxiety Verified 09/20/19 15:50 prochlorperazine Allergy Mild Anxiety Verified 09/20/19 15:50 [From Compazine] Home Medications: Home Medications Ibuprofen TAB* [Motrin TAB* 800 MG] 600 mg PO Q8HR PRN 09/20/19 [History Confirmed 09/20/19] PMH/Surg Hx/FS Hx/Imm Hx Previously Healthy: Yes Cardiovascular History: Hypertension Respiratory History: Asthma Psychological History: Anxiety Other History Of: Negative For: HIV, Hepatitis B, Hepatitis C, Anticoagulant Therapy - Surgical History Surgical History: Yes Surgery Procedure, Year, and Place: 2013 D&C [facility]. 2001 [place]. 2008 left foot surgery [facility]. 2004 TUBAL LIGATION, [facility]. 2004 GALLBLADDER REMOVED [facility]. hysterectomy 2013. R ULNAR NERVE TRANSPOSITION 09/06/15 [facility]. LEFT LEG VEIN SURGERY 2012. 07/2014partial hysterectomy [facility]. 08/22/2014 removal of cyst and nerve on rt wrist [facility]. [place] [facility] [place] RT ELBOW ULNAR NERVE DECOMPRESSION [facility]. 03/2019 R carpal tunnel surgery - Family History Known Family History: Positive: Cardiac Disease, Hypertension, Diabetes, Other - CVA - Social History Alcohol Use: Daily Alcohol Amount: 1 or more glass wine/DAY Substance Use Type: None Smoking Status (MU): Former Smoker Type: Cigarettes Amount Used/How Often: 1PPD Length of Time of Smoking/Using Tobacco: 5 years Have You Smoked in the Last Year: No When Did the Patient Quit Smoking/Using Tobacco: 20 YEARS AGO - Immunization History Most Recent Influenza Vaccination: never Most Recent Tetanus Shot: unknown Most Recent Pneumonia Vaccination: never Review of Systems All Other Systems Reviewed And Are Negative: Yes Constitutional: Positive: Negative Skin: Positive: Negative Eyes: Positive: Negative ENT: Positive: Negative Respiratory: Positive: Negative Cardiovascular: Positive: Negative Genitourinary: Positive: Negative Motor: Positive: Negative Neurovascular: Positive: Negative Musculoskeletal: Positive: Myalgia Neurological: Positive: Negative Psychological: Positive: Negative Physical Exam Triage Information Reviewed: Yes Appearance: Well-Appearing, Well-Nourished, Pain Distress Vital Signs: Initial Vital Signs Temp 98.5 F 09/20/19 15:51 Pulse 94 09/20/19 15:51 Resp 18 09/20/19 15:51 BP 128/81 09/20/19 15:51 Pulse Ox 100 09/20/19 15:51 Vital Signs Reviewed: Yes Eyes: Positive: Conjunctiva Clear ENT: Positive: Hearing grossly normal, Uvula midline. Negative: Nasal congestion, Nasal drainage, Trismus, Muffled voice, Hoarse voice Neck: Positive: Supple Respiratory: Positive: Lungs clear, Normal breath sounds, No respiratory distress, No accessory muscle use Cardiovascular: Positive: RRR, No Murmur Musculoskeletal: Positive: ROM Intact, No Edema Neurological: Positive: Alert Psychological Exam: Normal Skin Exam: Normal - Additional Comments back- decreased ROM no midline lumbar pain neg SLR Back Pain Course/Dx - Differential Dx/Diagnosis Provider Diagnosis: Acute lumbar myofascial strain Discharge ED - Sign-Out/Discharge Documenting (check all that apply): Patient Departure All imaging exams completed and their final reports reviewed: No Studies - Discharge Plan Condition: Stable Disposition: HOME Prescriptions: diazePAM [Valium] 2 mg PO Q4HR PRN #10 tablet MDD 5 PRN Reason: Spasms - Back Patient Education Materials: Low Back Strain (ED) Forms: *Work Release Referrals: Ignacio Garcias MD [Primary Care Provider] - Additional Instructions: PT consult rest tylenol ibuprofen don't take valium and drive or work - Billing Disposition and Condition Condition: STABLE Disposition: Home
== END 2019-09-20 16:35 | disposition home or self-care (01) ==
LOC: UCEAST 15:41
DX: S39.012A Strain of muscle, fascia and tendon of lower back, initial encounter (principal); I10 Essential (primary) hypertension; J45.909 Unspecified asthma, uncomplicated; Z88.5 Allergy status to narcotic agent; Z91.041 Radiographic dye allergy status; Z91.040 Latex allergy status; Z88.0 Allergy status to penicillin; Z88.2 Allergy status to sulfonamides; Z88.8 Allergy status to other drugs, medicaments and biological substances; Z87.891 Personal history of nicotine dependence; X50.0XXA Overexertion from strenuous movement or load, initial encounter; Y92.9 Unspecified place or not applicable
CPT/HCPCS: 99212; G0463

== ENCOUNTER 2019-09-24 14:14 | Emergency (ER) | payer SELFPAY ==
[2019-09-24 15:14] VITALS: BP 132/89
--- NOTE | 2019-09-24 15:18 | UC ---
Back Pain HPI - HPI Summary HPI Summary: patient her for reevaluation and addition treatment as she feels she will not make it to her appointment tomorrow due to the snow--patient is having continuing pain and spasm in low back - History of Current Complaint Chief Complaint: UCBackPain Stated Complaint: RECHECK BACK Time Seen by Provider: 09/24/19 15:17 Hx Obtained From: Patient Hx Last Menstrual Period: 2013 ?: No Onset/Duration: Sudden Onset, Lasting Days - 5, Still Present Timing: Constant Pain Intensity: 7 Pain Scale Used: 0-10 Numeric Back Pain: Is Discrete @ - low back Character: Aching, Throbbing, Spasmodic Aggravating Factor(s): Movement Alleviating Factor(s): Nothing Associated Signs And Symptoms: Positive: Negative Related History: Previous Back Injury - Allergies/Home Medications Allergies/Adverse Reactions: Allergies Allergy/AdvReac Type Severity Reaction Status Date / Time codeine Allergy Severe Rash Verified 09/24/19 15:14 Iodinated Contrast Media Allergy Severe Anaphylatic Verified 09/24/19 15:14 Shock latex Allergy Severe Rash Verified 09/24/19 15:14 Latex, Natural Rubber Allergy Severe Hives Verified 09/24/19 15:14 morphine Allergy Severe Rash Verified 09/24/19 15:14 Penicillins Allergy Severe Anaphylatic Verified 09/24/19 15:14 Shock Sulfa (Sulfonamide Allergy Severe Rash Verified 09/24/19 15:14 Antibiotics) meclizine AdvReac Mild Anxiety Verified 09/24/19 15:14 metoclopramide [From Reglan] AdvReac Mild Anxiety Verified 09/24/19 15:14 prochlorperazine AdvReac Mild Anxiety Verified 09/24/19 15:14 [From Compazine] Home Medications: Home Medications Acetaminophen [Tylenol] 2 tab PO Q6H PRN 09/24/19 [History Confirmed 09/24/19] PMH/Surg Hx/FS Hx/Imm Hx Endocrine History: Hypothyroidism Cardiovascular History: Hypertension Respiratory History: Asthma Other History Of: Negative For: HIV, Hepatitis B, Hepatitis C, Anticoagulant Therapy - Surgical History Surgical History: Yes Surgery Procedure, Year, and Place: 2012 [facility]C [facility]. 2002 [place]. 2008 left foot [facility]. 2005 TUBAL LIGATION, [facility]. 2005 GALLBLADDER REMOVED [facility]. hysterectomy 2014. R ULNAR NERVE TRANSPOSITION 09/06/15 [facility] [place] LEFT LEG VEIN SURGERY 2013. 07/2014partial hysterectomy [facility]. 08/22/2014 removal of cyst and nerve on rt wrist [facility]. 2006 URETHRAL stents, [facility]. 07/12/15 RT ELBOW ULNAR NERVE DECOMPRESSION [facility]. 03/2019 R carpal tunnel surgery - Family History Known Family History: Positive: Cardiac Disease, Hypertension, Diabetes, Other - CVA - Social History Occupation: Employed Full-time Lives: With Family Alcohol Use: Daily Alcohol Amount: 1 or more glass wine/DAY Substance Use Type: None Smoking Status (MU): Former Smoker Type: Cigarettes Amount Used/How Often: 1PPD Length of Time of Smoking/Using Tobacco: 5 years Have You Smoked in the Last Year: No When Did the Patient Quit Smoking/Using Tobacco: 20 YEARS AGO - Immunization History Most Recent Influenza Vaccination: never Most Recent Tetanus Shot: unknown Most Recent Pneumonia Vaccination: never Review of Systems All Other Systems Reviewed And Are Negative: Yes Constitutional: Positive: Negative Skin: Positive: Negative Eyes: Positive: Negative ENT: Positive: Negative Respiratory: Positive: Negative Cardiovascular: Positive: Negative Gastrointestinal: Positive: Negative Genitourinary: Positive: Negative Motor: Negative: Weakness Neurovascular: Positive: Negative Musculoskeletal: Positive: Myalgia - low back pain Neurological: Positive: Negative Psychological: Positive: Negative Is Patient Immunocompromised?: No Physical Exam Triage Information Reviewed: Yes Appearance: Well-Nourished, Ill-Appearing, Pain Distress - mild Vital Signs: Initial Vital Signs Temp 98.5 F 09/24/19 15:09 Pulse 85 09/24/19 15:09 Resp 16 09/24/19 15:09 BP 132/89 09/24/19 15:09 Pulse Ox 100 09/24/19 15:09 Vital Signs Reviewed: Yes Eye Exam: Normal Eyes: Positive: Conjunctiva Clear ENT Exam: Normal ENT: Positive: Normal ENT inspection, Hearing grossly normal. Negative: Nasal congestion, Trismus, Muffled voice, Hoarse voice Dental Exam: Normal Neck exam: Normal Neck: Positive: Supple, Nontender Respiratory Exam: Normal Respiratory: Positive: Chest non-tender, No accessory muscle use Cardiovascular Exam: Normal Cardiovascular: Positive: RRR, Pulses Normal, Brisk Capillary Refill Musculoskeletal Exam: Normal Musculoskeletal: Positive: Strength Intact, ROM Intact, No Edema Neurological Exam: Normal Neurological: Positive: Alert, Muscle Tone Normal Psychological Exam: Normal Skin Exam: Normal Back Pain Course/Dx - Course Course Of Treatment: did get moderate amount of pain relief with toradal--will d/c to home with Valium prn muscle spasm and po toradal--extend work release follow with pcp/ employee health this week - Differential Dx/Diagnosis Provider Diagnosis: Low back strain Discharge ED - Sign-Out/Discharge Documenting (check all that apply): Patient Departure All imaging exams completed and their final reports reviewed: No Studies - Discharge Plan Condition: Stable Disposition: HOME Prescriptions: Diazepam TAB(*) [Valium TAB(*)] 2.5 mg PO Q6H PRN 5 Days #10 tab MDD 2 PRN Reason: muscle spasm Ketorolac TAB * [Toradol TAB *] 10 mg PO Q6H PRN 5 Days #20 tab PRN Reason: Pain - Moderate Patient Education Materials: Low Back Strain (ED), Muscle Spasm (ED), Lower Back Exercises (ED) Forms: *Work Release Referrals: Ignacio Garcias MD [Primary Care Provider] - 5 Days - Billing Disposition and Condition Condition: STABLE Disposition: Home
[2019-09-24] MEDS ORDERED: Ketorolac *IM* INJ* 60 MG/2 ML VIAL IM ONE (15:36)
== END 2019-09-24 16:10 | disposition home or self-care (01) ==
LOC: UCEAST 14:14
DX: S39.012D Strain of muscle, fascia and tendon of lower back, subsequent encounter (principal); X58.XXXD Exposure to other specified factors, subsequent encounter; I10 Essential (primary) hypertension; Z88.5 Allergy status to narcotic agent; Z88.0 Allergy status to penicillin; Z88.2 Allergy status to sulfonamides; Z88.8 Allergy status to other drugs, medicaments and biological substances; Z91.041 Radiographic dye allergy status; Z91.040 Latex allergy status; Z87.891 Personal history of nicotine dependence
CPT/HCPCS: 96372; 99212; G0463; J1885

== ENCOUNTER 2019-10-05 09:22 | Emergency (ER) | payer SELFPAY ==
--- NOTE | 2019-10-05 09:53 | UC ---
Back Pain HPI - HPI Summary HPI Summary: 54 yo female presents with back pain. She tells me that on 09/20 she injured her lower back at work and was evaluated here x2 and prescribed valium for muscle spasm with good relief. She saw her worker's comp doctor yesterday through [place] and was given restrictions to return to work today. This morning pt went in to work around 0700 and states there was "no staff there" and no managers to give her work restrictions to. She began doing her usual work activities as prior to injury. Her lower back pain steadily increased. 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 She called her worker's comp doctor and was able to make an appointment for tomorrow 10/06, but due to her increased pain she came to today. She has been taking her flexeril and mobic as prescribed - no flexeril yet today. Denies new or specific injury today. Admits that pain radiates down both legs at times. Pain worse with movement. Denies numbness, saddle anesthesia, dysuria, abdominal pain, nausea, loss of bowel/bladder control. She drove herself here today. - History of Current Complaint Chief Complaint: UCBackPain Stated Complaint: WORK RELATED BACK INJURY FOLLOW UP Time Seen by Provider: 10/05/19 09:52 Hx Last Menstrual Period: 2013 Onset/Duration: Sudden Onset Severity Initially: Moderate Severity Currently: Severe Pain Intensity: 8 Pain Scale Used: 0-10 Numeric - Allergies/Home Medications Allergies/Adverse Reactions: Allergies Allergy/AdvReac Type Severity Reaction Status Date / Time codeine Allergy Severe Rash Verified 10/05/19 09:33 Iodinated Contrast Media Allergy Severe Anaphylatic Verified 10/05/19 09:33 Shock latex Allergy Severe Rash Verified 10/05/19 09:33 Latex, Natural Rubber Allergy Severe Hives Verified 10/05/19 09:33 morphine Allergy Severe Rash Verified 10/05/19 09:33 Penicillins Allergy Severe Anaphylatic Verified 10/05/19 09:33 Shock Sulfa (Sulfonamide Allergy Severe Rash Verified 10/05/19 09:33 Antibiotics) meclizine AdvReac Mild Anxiety Verified 10/05/19 09:33 metoclopramide [From Reglan] AdvReac Mild Anxiety Verified 10/05/19 09:33 prochlorperazine AdvReac Mild Anxiety Verified 10/05/19 09:33 [From Compazine] Home Medications: Home Medications Cyclobenzaprine TAB* [Flexeril 10 MG TAB*] 10 mg PO TID PRN 10/05/19 [History Confirmed 10/05/19] Meloxicam [Mobic] 15 mg PO DAILY 10/05/19 [History Confirmed 10/05/19] PMH/Surg Hx/FS Hx/Imm Hx Endocrine History: Hypothyroidism Respiratory History: Asthma Neurological History: Seizures Psychological History: Depression Other History Of: Negative For: HIV, Hepatitis B, Hepatitis C, Anticoagulant Therapy - Surgical History Surgical History: Yes Surgery Procedure, Year, and Place: 2012 D&C [facility] [place]. [place]. 2007 left foot surgery [facility]. 2004 TUBAL LIGATION, [facility] [place]. 2004 GALLBLADDER REMOVED [facility]. hysterectomy 2013. R ULNAR NERVE TRANSPOSITION 09/06/15 [facility] [place]. LEFT LEG VEIN SURGERY 2012. 07/2014partial hysterectomy [facility]. 08/22/2014 removal of cyst and nerve on rt wrist [facility]. 2006 URETHRAL stents, [facility] [place]. 07/12/15 RT ELBOW ULNAR NERVE DECOMPRESSION [facility]. 03/2019 R carpal tunnel surgery - Family History Known Family History: Positive: Cardiac Disease, Hypertension, Diabetes, Other - CVA - Social History Occupation: Employed Full-time Lives: With Family Alcohol Use: Daily Alcohol Amount: 1 or 2 glass wine/DAY Substance Use Type: None Smoking Status (MU): Former Smoker Type: Cigarettes Amount Used/How Often: 1PPD Length of Time of Smoking/Using Tobacco: 5 years Have You Smoked in the Last Year: No When Did the Patient Quit Smoking/Using Tobacco: 20 YEARS AGO - Immunization History Most Recent Influenza Vaccination: never Most Recent Tetanus Shot: unknown Most Recent Pneumonia Vaccination: never Review of Systems All Other Systems Reviewed And Are Negative: No Constitutional: Positive: Negative Skin: Positive: Negative Respiratory: Positive: Negative Cardiovascular: Positive: Negative Neurovascular: Positive: Negative Musculoskeletal: Positive: Other: - Back pain Neurological: Positive: Negative Psychological: Positive: Negative Physical Exam - Summary Physical Exam Summary: GENERAL: WDWN. SKIN: No rashes, sores, lesions, or open wounds. NECK: Supple. FROM. Nontender. No lymphadenopathy. CHEST: CTAB. No r/r/w. No accessory muscle use. Breathing comfortably and in no distress. CV: RRR. Pulses intact. Cap refill <2seconds MSK: TTP over lumbar paraspinal muscles and lumbar spine. Pain with flexion and extension of spine. Positive SLR b/l for low back pain without radiation. Strength 5/5 B/L LEs including dorsiflexion and plantar flexion. FROM B/L LEs. No edema. NEURO: Alert. Sensations intact B/L LEs L3-S1. Reflexes intact PSYCH: Age appropriate behavior. Triage Information Reviewed: Yes Vital Signs: Initial Vital Signs Temp 98 F 10/05/19 09:36 Pulse 83 10/05/19 09:36 Resp 18 10/05/19 09:36 BP 161/101 10/05/19 09:36 Pulse Ox 100 10/05/19 09:36 Vital Signs Reviewed: Yes Back Pain Course/Dx - Course Course Of Treatment: Reference #: [id number] Repeat BP 158/92. Suspect aggravation of lower back pain. In the clinic she was given 1 tab of norco. Noted allergy to coedine and morphine, but pt states she has had norco in the past without issue. Given that she had good relief with valium in the past, will rx for this again today and have her keep her appt tomorrow with her worker's nGame doctor for further eval. - Differential Dx/Diagnosis Provider Diagnosis: Low back pain Discharge ED - Sign-Out/Discharge Documenting (check all that apply): Patient Departure All imaging exams completed and their final reports reviewed: No Studies - Discharge Plan Condition: Stable Disposition: HOME Prescriptions: Diazepam TAB(NF) [Valium TAB(NF)] 2 mg PO TID PRN #9 tab MDD 3 PRN Reason: Spasms Patient Education Materials: Acute Low Back Pain (ED) Referrals: Ignacio Garcias MD [Primary Care Provider] - Additional Instructions: If you develop a fever, shortness of breath, chest pain, new or worsening symptoms - please call your PCP or go to the ED immediately. Your blood pressure was high at todays visit. Please see your primary provider within 4 weeks for recheck and re-evaluation. Keep your appointment tomorrow with your worker's comp doctor for a recheck. Rest and apply heat to your lower back and continue your medications as prescribed - Billing Disposition and Condition Condition: STABLE Disposition: Home - Attestation Statements Provider Attestation: I was available for consult. This patient was seen by the SIVA. The patient was not presented to, seen by, or examined by me. -Wilmer
[2019-10-05] MEDS ORDERED: HYDROcodone/ACETAMIN 5-325 MG* 1 TAB PO ONE (10:03)
[2019-10-05 10:17] VITALS: BP 158/92
== END 2019-10-05 10:57 | disposition home or self-care (01) ==
LOC: UCEAST 09:22
DX: M54.5 Low back pain (principal); J45.909 Unspecified asthma, uncomplicated; Z88.5 Allergy status to narcotic agent; Z91.041 Radiographic dye allergy status; Z91.040 Latex allergy status; Z88.0 Allergy status to penicillin; Z88.2 Allergy status to sulfonamides; Z88.8 Allergy status to other drugs, medicaments and biological substances; Z87.891 Personal history of nicotine dependence
CPT/HCPCS: 99212; G0463

== ENCOUNTER 2019-10-20 11:13 | Emergency (ER) | payer OTHER ==
[2019-10-20 12:27] VITALS: BP 141/97
--- NOTE | 2019-10-20 12:37 | UC ---
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 She was carrying the large vasuum pack and when she twisted to take it off her back, she sustained a mid-low back strain. Since then she has been on work restriction with light duty work. She has developed sciatica and has been managing it, but the past few days she has had prolonged sitting at work. She denies any saddle anesthesia and no numbness in her extremities. She is seeing the Worker's Comp doctor and has another appt on October 27, 2009. - History of Current Complaint Chief Complaint: UCBackPain Stated Complaint: BACKPAIN Time Seen by Provider: 10/20/19 12:29 Hx Obtained From: Patient Hx Last Menstrual Period: 2013 ?: No Onset/Duration: Gradual Onset, Lasting Weeks Timing: Constant Severity Initially: Moderate Severity Currently: Mild - Pt walks without difficulty Pain Intensity: 8 Character: Dull, Aching Aggravating Factor(s): Movement, Lifting, Bending Alleviating Factor(s): Rest Associated Signs And Symptoms: Positive: Tingling - Ocassional mild tingling in left lower back, which she has had with the sciatica. Negative: Weakness, Numbness, Abdominal Pain, Flank Pain, Bladder Incontinence, Bowel Incontinence - Allergies/Home Medications Allergies/Adverse Reactions: Allergies Allergy/AdvReac Type Severity Reaction Status Date / Time codeine Allergy Severe Rash Verified 10/20/19 12:27 Iodinated Contrast Media Allergy Severe Anaphylatic Verified 10/20/19 12:27 Shock latex Allergy Severe Rash Verified 10/20/19 12:27 Latex, Natural Rubber Allergy Severe Hives Verified 10/20/19 12:27 morphine Allergy Severe Rash Verified 10/20/19 12:27 Penicillins Allergy Severe Anaphylatic Verified 10/20/19 12:27 Shock Sulfa (Sulfonamide Allergy Severe Rash Verified 10/20/19 12:27 Antibiotics) meclizine AdvReac Mild Anxiety Verified 10/20/19 12:27 metoclopramide [From Reglan] AdvReac Mild Anxiety Verified 10/20/19 12:27 prochlorperazine AdvReac Mild Anxiety Verified 10/20/19 12:27 [From Compazine] Home Medications: Home Medications Amphet/Dextr 1 dose PO DAILY PRN 12/26/19 [History] PMH/Surg Hx/FS Hx/Imm Hx Previously Healthy: Yes Other History Of: Negative For: HIV, Hepatitis B, Hepatitis C, Anticoagulant Therapy - Surgical History Surgical History: Yes Surgery Procedure, Year, and Place: 2012 D&C [facility]. 2002 [place]. 2007 left foot surgery [facility]. 2004 TUBAL LIGATION, [facility]. 2004 GALLBLADDER REMOVED [facility]. hysterectomy 2014. R ULNAR NERVE TRANSPOSITION 09/06/15 [facility]. LEFT LEG VEIN SURGERY 2013. 07/2014partial hysterectomy [facility]. 08/22/2014 removal of cyst and nerve on rt wrist [facility]. 2006 URETHRAL stents, [facility] [place]. 07/12/15 RT ELBOW ULNAR NERVE DECOMPRESSION [facility]. 03/2019 R carpal tunnel surgery - Family History Known Family History: Positive: Cardiac Disease, Hypertension, Diabetes, Other - CVA - Social History Occupation: Employed Full-time Alcohol Use: Daily Alcohol Amount: 1 or 2 glass wine/DAY Substance Use Type: None Smoking Status (MU): Former Smoker Type: Cigarettes Amount Used/How Often: 1PPD Length of Time of Smoking/Using Tobacco: 5 years Have You Smoked in the Last Year: No When Did the Patient Quit Smoking/Using Tobacco: 20 YEARS AGO - Immunization History Most Recent Influenza Vaccination: never Most Recent Tetanus Shot: unknown Most Recent Pneumonia Vaccination: never Review of Systems All Other Systems Reviewed And Are Negative: Yes Musculoskeletal: Positive: Other: - Pt states sciatica on the left side Is Patient Immunocompromised?: No Physical Exam Triage Information Reviewed: Yes Appearance: Well-Appearing, No Pain Distress, Well-Nourished Vital Signs: Initial Vital Signs Temp 97.9 F 10/20/19 12:23 Pulse 85 10/20/19 12:23 Resp 18 10/20/19 12:23 BP 141/97 10/20/19 12:23 Pulse Ox 100 10/20/19 12:23 Vital Signs Reviewed: Yes Respiratory: Positive: Lungs clear, Normal breath sounds, No respiratory distress, No accessory muscle use Cardiovascular: Positive: RRR, No Murmur, Pulses Normal, Brisk Capillary Refill Abdomen Description: Positive: Nontender, No Organomegaly, Soft. Negative: CVA Tenderness (R), CVA Tenderness (L), Distended, Guarding, Hepatomegaly, Splenomegaly Bowel Sounds: Positive: Present Musculoskeletal: Positive: Strength Intact, ROM Intact, Other: - Mild left SLR, good ROM, ambulates without difficulty, left buttock tender on palpation. Neurological: Positive: Alert, Muscle Tone Normal, Other: - Reflexes +2 at the knees Psychological Exam: Normal Skin Exam: Normal Back Pain Course/Dx - Course Course Of Treatment: Pt appears comfortable and moves without difficulty. Left buttock more tender with sitting. - Differential Dx/Diagnosis Provider Diagnosis: Left sided sciatica Discharge ED - Sign-Out/Discharge Documenting (check all that apply): Patient Departure All imaging exams completed and their final reports reviewed: No Studies - Discharge Plan Condition: Fair Disposition: HOME Prescriptions: Cyclobenzaprine TAB* [Flexeril 10 MG TAB*] 10 mg PO TID PRN #21 tab PRN Reason: Pain - Mild Patient Education Materials: Sciatica (ED) Forms: *Work Release Referrals: Ignacio Garcias MD [Primary Care Provider] - Additional Instructions: Avoid movements that cause pain. Do not drink alcohol, drive or operate machinery while you are taking the Flexeril, continue your other medications as directed. Continued follow up with your doctor as scheduled October 27. - Billing Disposition and Condition Condition: FAIR Disposition: Home
== END 2019-10-20 12:45 | disposition home or self-care (01) ==
LOC: UCEAST 11:13
DX: M54.32 Sciatica, left side (principal); Z88.5 Allergy status to narcotic agent; Z91.041 Radiographic dye allergy status; Z91.040 Latex allergy status; Z88.0 Allergy status to penicillin; Z88.2 Allergy status to sulfonamides; Z88.8 Allergy status to other drugs, medicaments and biological substances; Z87.891 Personal history of nicotine dependence
CPT/HCPCS: 99212; G0463

== ENCOUNTER 2019-10-25 12:23 | Emergency (ER) | payer BC, OTHER ==
[2019-10-25] MEDS ORDERED: Acetaminophen TAB* 325 MG PO ONE (12:52)
--- NOTE | 2019-10-25 12:53 | ED ---
Neurological HPI - HPI Summary HPI Summary: Patient is a 54 y/o F presenting to [facility] via EMS for a seizure episode. 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 EMS was called and notes that the patient was confused, post-ictal upon their arrival. EMS obtained CCTV footage of the apparent tonic-clonic seizure episode. In room, patient is alert and oriented x3. She states that she does not recall the episode. Patient remembers helping the customer and states the next thing she recalls is waking up on the floor. She states that she has a frontal MÁRQUEZ but does not believe that she struck the front of her head during the fall. No incontinence noted. Patient makes note of a similar episode that occurred in 2017. She was evaluated and placed on Keppra. However, she states that she was later taken off of this medication. Patient currently takes Wellbutrin. Home medications and allergies are reviewed. - History of Current Complaint Stated Complaint: SEISURES PER EMS Time Seen by Provider: 10/25/19 12:24 Hx Obtained From: Patient Hx Last Menstrual Period: 2013 Onset/Duration: Resolved Timing: Intermittent Episodes Lasting: Number of Seizures: 1 Headache Location: Frontal Pain Scale Used: 0-10 Numeric Character: Other: - headache, seizure Syncope Context: Witnessed Frequency: Episodes x___ - 1 Seizure Character: Total-Clonic Associated Signs and Symptoms: Positive: Headache, Seizure - Additional Pertinent History Primary Care Physician: [id number] - Allergy/Home Medications Allergies/Adverse Reactions: Allergies Allergy/AdvReac Type Severity Reaction Status Date / Time codeine Allergy Severe Rash Verified 10/25/19 13:09 Iodinated Contrast Media Allergy Severe Anaphylatic Verified 10/25/19 13:09 Shock latex Allergy Severe Rash Verified 10/25/19 13:09 Latex, Natural Rubber Allergy Severe Hives Verified 10/25/19 13:09 morphine Allergy Severe Rash Verified 10/25/19 13:09 Penicillins Allergy Severe Anaphylatic Verified 10/25/19 13:09 Shock Sulfa (Sulfonamide Allergy Severe Rash Verified 10/25/19 13:09 Antibiotics) meclizine AdvReac Mild Anxiety Verified 10/25/19 13:09 metoclopramide [From Reglan] AdvReac Mild Anxiety Verified 10/25/19 13:09 prochlorperazine AdvReac Mild Anxiety Verified 10/25/19 13:09 [From Compazine] Home Medications: Home Medications Triamterene/HCTZ 75-50 MG* [Maxzide 75-50*] 1 tab PO DAILY 10/25/19 [History Confirmed 10/25/19] PMH/Surg Hx/FS Hx/Imm Hx Endocrine/Hematology History: Reports: Hx Thyroid Disease - hypothyroid Denies: Hx Anticoagulant Therapy, Hx Diabetes Cardiovascular History: Reports: Hx Hypertension Denies: Hx Congestive Heart Failure, Hx Deep Vein Thrombosis, Hx Myocardial Infarction, Hx Pacemaker/ICD Respiratory History: Reports: Hx Asthma Denies: Hx Chronic Obstructive Pulmonary Disease (COPD), Hx Lung Cancer, Hx Pneumonia, Hx Pulmonary Embolism GI History: Reports: Hx Obstructive Bowel, Other GI Disorders - adhesions Denies: Hx Gall Bladder Disease, Hx Gastrointestinal Bleed, Hx Ulcer, Hx Urosepsis History: Reports: Hx Kidney Stones Denies: Hx Renal Disease Comment Only: Other Problems/Disorders - DENIES ANY PAIN OR PROBLEMS R/T KIDNEY STONES Musculoskeletal History: Reports: Other Musculoskeletal History - RIGHT HAND/ARM Denies: Hx Osteoporosis Sensory History: Reports: Hx Contacts or Glasses - GLASSES Denies: Hx Hearing Aid Opthamlomology History: Reports: Hx Contacts or Glasses - GLASSES Neurological History: Reports: Hx Migraine, Other Neuro Impairments/Disorders - ADD Denies: Hx Dementia, Hx Seizures, Hx Transient Ischemic Attacks (TIA) Psychiatric History: Reports: Hx Anxiety, Hx Depression Denies: Hx Panic Disorder, Hx Schizophrenia, Hx Bipolar Disorder - Surgical History Surgery Procedure, Year, and Place: 2012 D&C [facility] [place]. 2002 [place]. 2008 left foot surgery [facility]. 2005 TUBAL LIGATION, [facility]. 2005 GALLBLADDER REMOVED [facility]. hysterectomy 2013. R ULNAR NERVE TRANSPOSITION 09/06/15 [facility]. LEFT LEG VEIN SURGERY 2012. 07/2014partial hysterectomy [facility]. 08/22/2014 removal of cyst and nerve on rt wrist [facility]. 2006 URETHRAL stents, [facility] [place]. 07/12/15 RT ELBOW ULNAR NERVE DECOMPRESSION [facility] [place]. 03/2019 R carpal tunnel surgery Hx Anesthesia Reactions: No - Immunization History Date of Tetanus Vaccine: 2011 Date of Influenza Vaccine: None Infectious Disease History: Denies: Hx Clostridium Difficile, Hx Hepatitis, Hx Human Immunodeficiency Virus (HIV), Hx of Known/Suspected MRSA, Hx Shingles, Hx Tuberculosis, Hx Known/ Suspected VRE, Hx Known/Suspected VRSA, History Other Infectious Disease - Family History Known Family History: Positive: Cardiac Disease, Hypertension, Diabetes, Other - CVA - Social History Alcohol Use: Daily Alcohol Amount: 1 or 2 glass wine/DAY Hx Substance Use: No Substance Use Type: Reports: None Hx Tobacco Use: Yes - not currently Smoking Status (MU): Former Smoker Type: Cigarettes Amount Used/How Often: 1PPD Length of Time of Smoking/Using Tobacco: 5 years Have You Smoked in the Last Year: No Review of Systems Negative: incontinence Neurological: Other - positive - seizure Positive: Headache All Other Systems Reviewed And Are Negative: Yes Physical Exam - Summary Physical Exam Summary: Appearance: Well-appearing, Well-nourished, lying in bed comfortably Skin: Warm, dry, no obvious rash Eyes: sclera anicteric, no conjunctival pallor ENT: There is an abrasion to the right side of the tongue consistent with tongue biting; mucous membranes moist, pharynx appears normal Neck: Supple, nontender Respiratory: Clear to auscultation, no signs of respiratory distress Cardiovascular: Normal S1, S2. No murmurs. Normal distal pulses in tibial and radial bilaterally. Abdomen: Soft, nontender, normal active bowel sounds present Musculoskeletal: Normal, Strength/ROM Intact, Motor function in all 4 extremities is normal and symmetric. There is no rigidity or tremor noted. Pain and swelling to the inferior lateral aspect of the right knee noted. There is a small contusion to the left upper frontal forehead as well as a contusion just distal to the left elbow. Neurological: A&Ox3, awake and alert, mentation is normal, speech is fluent and appropriate, Level of consciousness nml. The patient is alert and oriented. Cranial nerves are grossly intact. Gaze is conjugate and without nystagmus. Peripheral vision is intact to confrontation. There are no gross sensory abnormalities to light touch. There is no truncal or fine motor ataxia. Gait is normal. Psychiatric: affect is normal, does not appear anxious or depressed Triage Information Reviewed: Yes Vital Signs Reviewed: Yes Procedures - Sedation Patient Received Moderate/Deep Sedation with Procedure: No Diagnostics - Laboratory Result Diagrams: 10/25/19 13:15 10/25/19 13:15 Lab Statement: Any lab studies that have been ordered have been reviewed, and results considered in the medical decision making process. - Radiology RIGHT KNEE X-RAY Radiology Interpretation Completed By: Radiologist Summary of Radiographic Findings: IMPRESSION: NO ACUTE OSSEOUS INJURY. IF SYMPTOMS PERSIST, RECOMMEND REPEAT IMAGING. THIS REPORT WAS REVIEWED BY ED PHYSICIAN. Re-Evaluation - Re-Evaluation First Eval Re-Evaluation Time: 15:30 Comment: Workup discussed, patient to be discharged to home and started on Lamictal. She was advised that she cannot drive until cleared by neurologist. Course/Dx - Course Course Of Treatment: Patient is a 54 y/o F presenting to [facility] via EMS for a seizure episode. 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 EMS was called and notes that the patient was confused, post-ictal upon their arrival. EMS obtained CCTV footage of the apparent tonic-clonic seizure episode. In room, patient is alert and oriented x3. She states that she does not recall the episode. Patient remembers helping the customer and states the next thing she recalls is waking up on the floor. She states that she has a frontal MÁRQUEZ but does not believe that she struck the front of her head during the fall. No incontinence noted. Patient makes note of a similar episode that occurred in 2017. She was evaluated and placed on Keppra. However, she states that she was later taken off of this medication. Patient currently takes Wellbutrin. On physical exam, there is a small contusion to the left upper frontal forehead as well as a contusion just distal to the left elbow. Pain and swelling to the inferior lateral aspect of the right knee noted. There is an abrasion to the right side of the tongue consistent with tongue biting. RIGHT KNEE X-RAY IMPRESSION: NO ACUTE OSSEOUS INJURY. IF SYMPTOMS PERSIST, RECOMMEND REPEAT IMAGING. Urine tox screen was negative. Bloodwork was obtained and within normal limits with exception of MCH 32, absolute lymphs 0.9, chloride 100 , BUN 27, creatinine 1.38, glucose 102. Patient's case was discussed with Dr. Moreira, Dr. Moreira will come to ED to evaluate the patient. 1530 - Patient had been evaluated by Dr. Moreira. Patient to be placed on Lamictal and discharged to home with outpatient follow up. She is not to drive until cleared by neurologist. During ED course, patient received roxycodone 5 mg PO, lamictal 25 mg PO, and Tylenol 975 mg PO. - Diagnoses Provider Diagnoses: Seizure - Physician Notifications Discussed Care Of Patient With: Keven Moreira Time Discussed With Above Provider: 12:43 Instructed by Provider To: Other - Patient's case was discussed with Dr. Moreira , Dr. Moreira will come to ED to evaluate the patient. 1530 - Patient had been evaluated by Dr. Moreira. Patient to be placed on Lamictal and discharged to home with outpatient follow up. She is not to drive until cleared by neurologist. Discharge ED - Sign-Out/Discharge Documenting (check all that apply): Patient Departure - discharge - Discharge Plan Condition: Good Disposition: HOME Prescriptions: lamoTRIgine TAB(*) [Lamictal TAB(*)] 25 mg PO BEDTIME #30 tab oxyCODONE TAB* [Roxycodone TAB 5 mg*] 5 mg PO Q4H PRN #8 tab MDD 4 PRN Reason: Pain - Severe Patient Education Materials: Epilepsy (ED), Contusion in Adults (ED) Referrals: Keven Moreira MD [Medical Doctor] - - Attestation Statements Document Initiated by Scribe: Yes Documenting Scribe: CHAO EASLEY Provider For Whom Scribe is Documenting (Include Credential): WANDA RECIO MD Scribe Attestation: CHAO Aranda, scribed for WANDA RECIO MD on 10/25/19 at 1537. Status of Scribe Document: Ready
[2019-10-25 13:22] LABS: ABS Eosinophils 0.1 10^3/ul (0-0.6); ABS Lymphocytes 0.9 10^3/ul (1.0-4.8); ABS Monocytes 0.4 10^3/ul (0-0.8); ABS Neutrophils 5.6 10^3/ul (1.5-7.7); Eosinophil % 2.1 %; Hematocrit 42 % (35-47); Hemoglobin 14.4 g/dL (12.0-16.0); Lymphocyte % 13.2 %; Mean Corpuscular HGB Conc 34 g/dL (31-36); Mean Corpuscular Hemoglobin 32 pg (27-31); Mean Corpuscular Volume 92 fL (80-97); Mean Platelet Volume 8.5 fL (7.4-10.4); Platelet Count 236 10^3/uL (150-450); Red Blood Count 4.58 10^6 /uL (3.70-4.87); Red Cell Distribution Width 14 % (10-15); White Blood Count 7.2 10^3/uL (3.5-10.8)
[2019-10-25 13:46] LABS: ALT 23 U/L (7-52); AST 27 U/L (13-39); Albumin 4.7 g/dL (3.2-5.2); Albumin/Globulin Ratio 1.6 (1-3); Alkaline Phosphatase 90 U/L (34-104); Anion Gap 9 mmol/L (2-11); BUN/Creatinine Ratio 19.6 (8-20); Blood Urea Nitrogen 27 mg/dL (6-24); CO2 Carbon Dioxide 28 mmol/L (22-32); Calcium 9.6 mg/dL (8.6-10.3); Chloride 100 mmol/L (101-111); EGFR African American 48.6 (>60); EGFR Non-African American 40.1 (>60); Glucose 102 mg/dL (70-100); Potassium 4.5 mmol/L (3.5-5.0); Sodium 137 mmol/L (135-145); Total Protein 7.7 g/dL (6.4-8.9)
[2019-10-25] MEDS ORDERED: lamoTRIgine TAB(*) 25 MG PO ONE (13:50)
[2019-10-25] MEDS ORDERED: oxyCODONE TAB* 5 MG TAB PO ONE (13:58)
[2019-10-25 14:28] LABS: Alcohol < 10 mg/dL (<10)
[2019-10-25 14:49] LABS: Creatine Kinase 124 U/L (10-223)
[2019-10-25 15:11] LABS: Urine Benzodiazepine Screen None Detected (None Detect); Urine Opiates Screen None Detected (None Detect)
[2019-10-25 15:48] VITALS: BP 157/89
--- NOTE | 2019-10-25 16:12 | CONS ---
NEUROLOGY CONSULTATION: DATE OF CONSULT: 10/25/19 LOCATION: She is in the emergency room. REFERRING PROVIDER: Dank Amador MD CHIEF COMPLAINT: Observed convulsion. HISTORY OF PRESENT ILLNESS: Janeen Roberts is a 54-year-old right-handed woman who was in her usual state of health earlier today at her work at [employer]. They were having some type of opening and it was extremely busy and hectic. 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 She was very confused. People were asking her questions and she was not able to adequately give her age. After a while, she understood that she was being evaluated by director of speech pathology. She had an increase in her chronic back pain. She had pain in the back of her head where she had hit. She is accompanied by her significant other, who reports that the people at work said that she suddenly dropped onto her buttocks and then fell backwards and convulsed. She was stiff and rigid and might have had jaw clenching because they said she bit her tongue. This went on from 1 to 3 minutes. After that, she was very confused and disoriented. Currently, she complains of a sore right elbow, and as I examined her, she realized she has a sore right knee. She has a bruise on the left frontal part of her head as well. She has bitten right lateral aspect of her tongue, but she does not taste any blood. She has had 2 prior similar episodes. The most recent episode was in 2017. [place] She was with bystanders. She became rigid and fell backwards landing hard on the back of her head. She suffered a laceration on the back of her head. According to Dr. Aurelio Kaur's consultation note, she was described as hands clenched, arms locked and rigid, and shaking violently. Her eyes rolled into the back of her head and she was frothing at the mouth. This lasted about a minute and she was confused thereafter. There were some apneic episodes and then she snored. When she was able to communicate, she was confused. She had not been incontinent. She was seen in the emergency room where it was found she had a fractured sacrum from the fall and a laceration on the posterior scalp. She was started on Keppra during that hospitalization. She had an EEG, which was interpreted as normal. She had an MRI of the brain on 08/07/17 likewise interpreted as normal. I reviewed the images and I agree. She had another EEG subsequent to that in August of 2017 also interpreted as normal. She stopped Keppra as it made her feel terrible. She had been on Wellbutrin 300 mg at the time of the episode in 2017 and was advised that she stop that too because of its propensity to lower seizure threshold. She saw Dr. Kaur in followup, and with a negative EEG and the only one observed spell, it was decided to keep her off Keppra. She subsequently resumed Wellbutrin on her own. She has not been on Keppra since. She had a third and most distant episode about 2 years before that. She was a friend's house taking care of the house. It was unobserved. She only recalls being in the house and the next thing that she was on the ground having lacerated her forehead. She was very confused. She does not remember exactly how she got home, but somehow she was able to drive herself home. Other than these episodes described in the history of present illness, there is no history of head trauma. 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 She has had a number of procedures on venous drainage over the years for it. As far as she knows, there was no delay in walking and no academic delays. There is no family history of epilepsy that she is aware of. There is no history of meningitis. She has resumed taking Wellbutrin. She takes 200 mg per day. She slept very poorly last night. She uses alcohol infrequently. PAST MEDICAL HISTORY: Otherwise notable for chronic back pain. PAST SURGICAL HISTORY: She has had a hysterectomy, cholecystectomy, appendectomy, ureteral reflux surgery at age 5. MEDICATIONS: At home consist of: 1. Wellbutrin 300 mg p.o. daily. 2. Mobic 1 tablet per day. 3. Toradol p.r.n. back pain. 4. Dyazide 1 p.o. daily. 5. Levothyroxine 150 mcg p.o. daily. 6. Cyclobenzaprine 10 mg q.h.s. p.r.n. ALLERGIES: She is allergic to PENICILLIN, SULFA DRUGS, MORPHINE, and CODEINE, all of which caused a rash. METOCLOPRAMIDE and PROCHLORPERAZINE caused akathisia. MECLIZINE caused anxiety. She is allergic to LATEX. FAMILY HISTORY: Negative for seizure disorders. SOCIAL HISTORY: She lives with her second . She is an ex-smoker. She drinks alcohol rarely. REVIEW OF SYSTEMS: Notable for increase of her chronic back pain, new right elbow and right knee pain. She has an increasingly severe headache as we take the history and examine her. She has lost some weight recently. She has been under a lot of stress, which sounds to be fairly chronic. She is an ex-smoker. No recent fevers or chills. No recent change in medications. She has chronic insomnia and slept particularly badly last night. There is no history of diabetes, hypertension, or heart disease. PHYSICAL EXAM: She is well nourished and well hydrated. She has a fresh bruise on her right elbow and her left forehead. Neck range of motion is supple. There is a small tongue bite on the right lateral tongue. There is no active bleeding from it. There is pain with manipulation of the right knee. Heart tones are normal. I do not hear any murmurs. There are no cervical bruits. Lungs are clear anterolaterally. Neurologically, pupils react equally from 3.5 down to 2 mm. Eye movements and visual rodriguez are normal. Funduscopic exam is normal bilaterally. Facial musculature is symmetric. Facial sensation to light touch is symmetric. Other than the bite, palate and tongue appear normal. Speech is clear without dysarthria. Tongue protrudes in the midline. Motor exam reveals normal strength and tone other than as limited by pain particularly about the right knee. There is no spasticity or rigidity. The left leg is larger than the right and the left foot is larger than the right foot by probably half a size. Distal extremities are warm. Sensory exam to light touch is intact in all limbs. Reflexes are brisk in the upper and lower extremities and brisker at the left knee and left ankle than on the right. Right plantar response is equivocal and left is extensor. There is a mild sustention tremor. There is no rest tremor. Currently, she is alert, but has difficulty with focus and concentration. As her headache intensifies, she becomes more distracted. Language is fluent. She is actually an excellent historian and other than the times around the events as described in the history of present illness she has a good recollection of historical details. LABORATORY DATA: Includes a normal CBC, chemistry profile notable for BUN of 27 and creatinine of 1.38. Her creatinine this past August was borderline at 1.0 and has been normal in the past. Glucose today at presentation is 102. IMPRESSION AND PLAN: Impression is that of a generalized convulsion. 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 She has had 3 unprovoked events with some triggering factors, but by themselves not adequate explanations for the seizures. I have explained my opinion to Janeen Winters and her . I told her that I think that she has a propensity to recurrent seizures and I recommend she will be on an anticonvulsant. I expressed understanding that Keppra could cause her to feel dysphoric and told her there are numerous other anticonvulsants that she might be better able to tolerate. After some discussion, I recommended and she agreed to starting lamotrigine. I told her the main risk is a serious skin rash and it has to be started slowly, but that in the long run that might be better tolerated by her in terms of cognitive issues and mood disorders. If we can get her on adequate dose of an anticonvulsant then I think we can continue Wellbutrin, but I told her if she does have another seizure on the Wellbutrin and lamotrigine, then I recommend we will have to look finding alternative to Wellbutrin. I explained to her that with a diagnosis of seizure disorder she is not able to drive and she is required to notify the Department of Motor Vehicles of her diagnosis. I told her she cannot drive until cleared by the Department of Motor Vehicles and that would be a minimum of at least 6 months. I told her if she did not report her condition to the Department of Motor Vehicles she would be liable for any types of adverse consequences of her driving against [place] State regulations. I have asked Dr. Amador to look at her right knee and make sure that he does not think any further evaluation needs to be done here in the emergency room. I do not think she needs to be hospitalized. I told Janeen Winters and her that I would like to see her in followup in my office and we will titrate lamotrigine to 100 mg. I told them to call me prior to seeing me in the office if she has any further episodes or concerns about side effects from her medications. I discussed my opinion with Dr. Amador. [id number]/[facility] #: [id number] RYAN
== END 2019-10-25 15:48 | disposition home or self-care (01) ==
LOC: ED 12:23
DX: R56.9 Unspecified convulsions (principal); E03.9 Hypothyroidism, unspecified; I10 Essential (primary) hypertension; J45.909 Unspecified asthma, uncomplicated; F41.9 Anxiety disorder, unspecified; F32.9 Major depressive disorder, single episode, unspecified; Z85.118 Personal history of other malignant neoplasm of bronchus and lung; Z98.51 Tubal ligation status; Z90.710 Acquired absence of both cervix and uterus; Z90.49 Acquired absence of other specified parts of digestive tract; Z87.891 Personal history of nicotine dependence; Z79.890 Hormone replacement therapy; Z79.899 Other long term (current) drug therapy; Z88.5 Allergy status to narcotic agent; Z88.0 Allergy status to penicillin; Z88.2 Allergy status to sulfonamides; Z88.8 Allergy status to other drugs, medicaments and biological substances; Z91.041 Radiographic dye allergy status; Z91.040 Latex allergy status
CPT/HCPCS: 36415; 80053; 80307; 80320; 82550; 85025; 99284; A9270-GY; G0480

== ENCOUNTER 2020-02-12 09:47 | Emergency (ER) | payer BC, OTHER ==
--- NOTE | 2020-02-12 10:03 | UC ---
General HPI - HPI Summary HPI Summary: 54yo female presenting with left eye redness, discharge/crusting, and itching since yesterday. Denies vision changes. Denies pain with eye movement. Denies contact lens use. Denies right eye symptoms, stating she thought it was allergies but her symptoms always happen in both eyes with allergies. Denies rash and skin changes. Patient adds that her "allergies are acting up and causing her asthma to flare." She notes PND, sore throat, nasal congestion, and dry cough which are "normal allergy symptoms." Notes some sob with coughing and deep breaths. Also notes mid sternal "chest tightness" with deep breaths. Denies chest pain and difficulty breathing. Unsure of fevers. Denies chills and body aches. Denies n/v/d. Normal appetite. Denies ill contacts, but notes concern for strep throat. States she is not particularly concerned about covid19. Taking allergy medication, advil, and using inhaler with temporary relief of symptoms. - History of Current Complaint Stated Complaint: EYE COMPLAINT Hx Obtained From: Patient Hx Last Menstrual Period: 2013 Pain Intensity: 5 - Allergy/Home Medications Allergies/Adverse Reactions: Allergies Allergy/AdvReac Type Severity Reaction Status Date / Time codeine Allergy Severe Rash Verified 02/12/20 10:01 Iodinated Contrast Media Allergy Severe Anaphylatic Verified 02/12/20 10:01 Shock latex Allergy Severe Rash Verified 02/12/20 10:01 Latex, Natural Rubber Allergy Severe Hives Verified 02/12/20 10:01 morphine Allergy Severe Rash Verified 02/12/20 10:01 Penicillins Allergy Severe Anaphylatic Verified 02/12/20 10:01 Shock Sulfa (Sulfonamide Allergy Severe Rash Verified 02/12/20 10:01 Antibiotics) meclizine AdvReac Mild Anxiety Verified 02/12/20 10:01 metoclopramide [From Reglan] AdvReac Mild Anxiety Verified 02/12/20 10:01 prochlorperazine AdvReac Mild Anxiety Verified 02/12/20 10:01 [From Compazine] Home Medications: Home Medications Levothyroxine TAB* [Synthroid 150 MCG TAB*] 150 mcg PO QAM 08/07/17 [History Confirmed 02/12/20] Triamterene/HCTZ 75-50 MG* [Maxzide 75-50*] 1 tab PO DAILY 10/25/19 [History Confirmed 02/12/20] lamoTRIgine TAB(*) [Lamictal TAB(*)] 25 mg PO BEDTIME #30 tab 10/25/19 [Rx Confirmed 02/12/20] Albuterol HFA INHALER* [Ventolin HFA Inhaler*] 02/12/20 [History Confirmed ] Ibuprofen TAB* [Advil TAB*] 400 mg PO PRN 02/12/20 [History] Polymyx/Trimethoprim OPTH* [Polytrim OPHTH*] 2 drop LEFT EYE TID 7 Days #1 btl 02/12/20 [Rx] PMH/Surg Hx/FS Hx/Imm Hx Endocrine History: Hypothyroidism Cardiovascular History: Hypertension Respiratory History: Asthma Neurological History: Seizures Other History Of: Negative For: HIV, Hepatitis B, Hepatitis C, Anticoagulant Therapy - Surgical History Surgical History: Yes Surgery Procedure, Year, and Place: 2012 [facility] [place]. 2001 [place]. 2007 left foot surgery [facility]. 2004 TUBAL LIGATION, [facility] [place]. 2004 GALLBLADDER REMOVED [facility]. hysterectomy 2013. R ULNAR NERVE TRANSPOSITION 09/06/15 [facility]. LEFT LEG VEIN SURGERY 2012. 07/2014partial hysterectomy [facility]. 08/22/2014 removal of cyst and nerve on rt wrist [facility] [place]. 2005 URETERAL stents, [facility] [place] -REMOVED. RT ELBOW ULNAR NERVE DECOMPRESSION [facility] [place]. 03/2019 R carpal tunnel surgery. Surgical repairs/reposition of ureters as infant- pt monitors kidney function- normal 40-60 for her. - Family History Known Family History: Positive: Cardiac Disease, Hypertension, Diabetes, Other - CVA - Social History Alcohol Use: Daily Alcohol Amount: 1 drink/day Substance Use Type: None Smoking Status (MU): Former Smoker Type: Cigarettes Amount Used/How Often: 1PPD Length of Time of Smoking/Using Tobacco: 5 years Have You Smoked in the Last Year: No When Did the Patient Quit Smoking/Using Tobacco: 20 YEARS AGO - Immunization History Most Recent Influenza Vaccination: never Most Recent Tetanus Shot: unknown Most Recent Pneumonia Vaccination: never Review of Systems All Other Systems Reviewed And Are Negative: Yes Constitutional: Positive: Negative ENT: Positive: Sore Throat, Sinus Congestion Respiratory: Positive: Shortness Of Breath - with coughing, Cough Cardiovascular: Positive: Negative Gastrointestinal: Positive: Negative Musculoskeletal: Positive: Negative. Negative: Myalgia Neurological/Mental Status: Positive: Negative. Negative: Headache Psychological: Positive: Anxious Physical Exam - Summary Physical Exam Summary: Vital Signs Reviewed: Yes A+Ox3, no distress, well-appearing Eyes: right conjunctiva clear, left conjunctiva mildly inflamed with upper lid crusting and scant yellowish discharge in medial canthus, ERIK. EOM intact and full, no edema or erythema ENT: Hearing grossly normal, TM x 2 clear, moist, uvula midline, no exudate, + mild pharyngeal erythema, +PND Neck: Positive: Supple, no LAD Respiratory: Positive: No respiratory distress, No accessory muscle use + CTA throughout no w/r Cardiovascular: RRR nl s1, s2 no m/r Musculoskeletal Exam: CHAU x 4 without difficulty Neurological: Positive: Alert Psychological: Positive: age appropriate behavior, slightly anxious Skin: Positive: no rash, no ecchymosis Vital Signs: Vital Signs (72 hours) 02/12/20 09:54 Temperature 99.1 F Pulse Rate 90 Respiratory 16 Rate Blood Pressure 135/95 (mmHg) O2 Sat by Pulse 100 Oximetry Lab Results 02/12/20 Range/Units 10:38 Group A Strep Rapid Negative (Negative) Course/Dx - Course Course Of Treatment: I treated patient with polytrim drops for conjunctivitis of L eye. Negative rapid strep test. I discussed likely allergic vs possible viral source of URI symptoms. Patient declined covid19 testing today, stating "it won't change what the treatment is." I instructed to continue with symptomatic treatment with allergy medication and inhaler. Instructed to follow up with pcp if symptoms persist and to go to ED with any new or worsening symptoms. Patient voiced understanding and agreed with treatment plan. - Diagnoses Provider Diagnosis: Acute conjunctivitis, left eye, Environmental allergies Discharge ED - Sign-Out/Discharge Documenting (check all that apply): Patient Departure All imaging exams completed and their final reports reviewed: No Studies - Discharge Plan Condition: Stable Disposition: HOME Prescriptions: Polymyx/Trimethoprim OPTH* [Polytrim OPHTH*] 2 drop LEFT EYE TID 7 Days #1 btl Patient Education Materials: Allergies (ED), Conjunctivitis (ED), Postnasal Drip (DC) Referrals: Ignacio Garcias MD [Primary Care Provider] - If Needed Additional Instructions: Use the antibiotic eye drops in left eye as prescribed. Your strep test was negative today. Continue with your allergy medication, inhaler, and advil as directed for symptom relief. You may add a nasal saline spray or Flonase as well. Increase fluid intake and get plenty of rest. Follow up with your primary care provider if your symptoms do not improve within 2 weeks. Go to the emergency room if you experience any new or worsening symptoms. - Billing Disposition and Condition Condition: STABLE Disposition: Home
[2020-02-12 10:26] VITALS: BP 135/95
== END 2020-02-12 11:08 | disposition home or self-care (01) ==
LOC: UCEAST 09:47
DX: H10.32 Unspecified acute conjunctivitis, left eye (principal); J45.909 Unspecified asthma, uncomplicated; E03.9 Hypothyroidism, unspecified; I10 Essential (primary) hypertension; R56.9 Unspecified convulsions; Z79.890 Hormone replacement therapy; Z79.899 Other long term (current) drug therapy; Z88.5 Allergy status to narcotic agent; Z88.0 Allergy status to penicillin; Z88.2 Allergy status to sulfonamides; Z88.8 Allergy status to other drugs, medicaments and biological substances; Z91.041 Radiographic dye allergy status; Z91.040 Latex allergy status; Z87.891 Personal history of nicotine dependence
CPT/HCPCS: 87651; 99212; G0463

== ENCOUNTER 2023-03-04 15:38 | Inpatient (IN) ==
[2023-03-04 16:03] LABS: ABS Eosinophils 0.1 10^3/uL (0.0-0.5); ABS Lymphocytes 1.8 10^3/uL (1.0-4.8); ABS Monocytes 0.6 10^3/uL (0.0-0.9); ABS Neutrophils 5.7 10^3/uL (1.5-7.6); ABS Nucleated RBC 0.01 10^3/ul; Eosinophil % 0.6 %; Hematocrit 39.2 % (35-45); Hemoglobin 13.5 g/dL (11.5-14.3); Lymphocyte % 21.7 %; Mean Corpuscular Hemoglobin 31.3 pg (27-33); Mean Corpuscular Hgb Conc 34.3 g/dL (31-36); Mean Corpuscular Volume 91.3 fL (80-97); Mean Platelet Volume 8.6 fL (7.5-11.2); Nucleated Red Blood Cells % 0.1 /100 WBC (0.0-0.4); Platelet Count 246 10^3/uL (150-450); Red Cell Distribution Width 13.5 % (12-17); White Blood Count 8.1 10^3/uL (3.8-11.8)
[2023-03-04 16:28] LABS: High Sens Troponin Baseline 4 pg/mL (<15)
[2023-03-04 16:50] LABS: INR 1.02 (0.88-1.18)
[2023-03-04 17:11] LABS: ALT 18 U/L (7-52); AST 28 U/L (13-39); Albumin 4.8 g/dL (3.2-5.2); Albumin/Globulin Ratio 1.8 (1-3); Alkaline Phosphatase 79 U/L (35-149); Anion Gap 14 mmol/L (2-16); Blood Urea Nitrogen 14 mg/dL (6-24); CO2 Carbon Dioxide 25 mmol/L (22-32); Calcium 9.7 mg/dL (8.6-10.3); Chloride 99 mmol/L (101-111); Globulin 2.7 g/dL (2-4); Glucose 70 mg/dL (70-100); Potassium 3.6 mmol/L (3.5-5.0); Sodium 138 mmol/L (135-145); Total Protein 7.5 g/dL (6.4-8.9); eGFR CKD-EPI 53.5 (>60)
[2023-03-04 17:28] LABS: High Sensitivity Troponin 1 Hr 4 pg/mL (<15)
[2023-03-04] MEDS ORDERED: fentaNYL 100 mcg/2 ml 50 MCG/ML VIAL IV ONE (19:14)
[2023-03-04 19:52] LABS: Lipase 47 U/L (11.0-82.0)
[2023-03-04] MEDS ORDERED: Ondansetron 4 mg VIAL 2 MG/ML 2 ml VIAL IV ONE (20:02)
[2023-03-04] MEDS ORDERED: fentaNYL 100 mcg/2 ml 50 MCG/ML VIAL IV SLOW PU ONE ×3 (20:26→23:01)
[2023-03-04] MEDS ORDERED: Gadoteridol (CONTRAST) 279.3 MG/ML 10 ML IV ONE (23:58)
[2023-03-05 02:58] LABS: C Reactive Protein < 1.00 mg/L (<8.01)
[2023-03-05] MEDS ORDERED: Albuterol HFA INHALER 8 gm MDI INH PRN (03:51)
[2023-03-05] MEDS ORDERED: Ondansetron 4 mg VIAL 2 MG/ML 2 ml VIAL IV PRN (06:39)
[2023-03-05] MEDS: Enoxaparin 30 MG/0.3 ML SYR SUBCUT SCH (07:55)
[2023-03-05] MEDS ORDERED: fentaNYL 100 mcg/2 ml 50 MCG/ML VIAL IV SLOW PU ONE (07:56)
[2023-03-05] MEDS ORDERED: Prochlorperazine 5 mg/ml 2 ml VIAL (10 mg) IV PRN (09:36)
[2023-03-05] MEDS ORDERED: fentaNYL 100 mcg/2 ml 50 MCG/ML VIAL IV SLOW PU PRN (10:04)
[2023-03-05] MEDS ORDERED: Metoprolol Tartrate 5 mg VIAL 5 ml VIAL (1 mg/ml) IV PRN (11:44)
[2023-03-05] MEDS ORDERED: Lactated Ringers 1000 ml BAG 1,000 ML IV ONE (11:47)
[2023-03-05] MEDS: Ondansetron 4 mg VIAL 2 MG/ML 2 ml VIAL IV PRN ×2 (12:19→20:58)
[2023-03-05] MEDS: HYDROmorphone 0.5 MG/0.5 ML SYRINGE IV SLOW PU PRN ×3 (12:19→20:57)
[2023-03-05 13:27] LABS: Urine Appearance Clear; Urine Bilirubin Negative (Negative); Urine Blood Negative (Negative); Urine Color Straw; Urine Glucose Negative (Negative); Urine Ketones 1+ (Negative); Urine Nitrite Negative (Negative); Urine Protein Negative (Negative); Urine Specific Gravity 1.008 (1.002-1.030); Urine Urobilinogen Negative (Negative)
[2023-03-05 13:45] LABS: Urine Bacteria Absent (Absent); Urine Red Blood Cell Trace(0-2/hpf) (Absent); Urine Squamous Epithelial Cell Present (Absent); Urine White Blood Cell Trace(0-5/hpf) (Absent)
[2023-03-05] MEDS ORDERED: Propofol 10 MG/ML 20 ML BTL ONE (14:41)
[2023-03-05] MEDS ORDERED: Lidocaine 2% PF 5 ML VIAL ONE (14:57)
[2023-03-05] MEDS ORDERED: Midazolam 2 mg/2 ml VIAL 1 mg/ml 2 ml VIAL (2 mg) ONE (15:05)
[2023-03-05] MEDS: Pantoprazole VIAL 40 MG VIAL IV SCH (16:39)
[2023-03-05] MEDS: Triamterene/HCTZ 75/50 mg 1 TAB PO SCH ×2 (20:56→20:57)
[2023-03-06] MEDS: HYDROmorphone 0.5 MG/0.5 ML SYRINGE IV SLOW PU PRN ×6 (01:42→22:59)
[2023-03-06] MEDS: Enoxaparin 30 MG/0.3 ML SYR SUBCUT SCH ×2 (05:15→05:47)
[2023-03-06 06:44] LABS: Albumin/Globulin Ratio 1.6 (1-3); Calcium 8.7 mg/dL (8.6-10.3); Creatinine, Serum 1.3 mg/dL (0.51-0.95); Globulin 2.5 g/dL (2-4); Magnesium 1.2 mg/dL (1.9-2.7); Potassium 3.6 mmol/L (3.5-5.0); Total Bilirubin 1.3 mg/dL (0.2-1.0); Total Protein 6.5 g/dL (6.4-8.9); eGFR CKD-EPI 48.6 (>60)
[2023-03-06] MEDS ORDERED: Magnesium Sulf 4 GM/100 ML IV 4,000 MG/100 ML BAG IVPB ONE (11:32)
[2023-03-06] MEDS: Lactated Ringers 1000 ml BAG 1,000 ML IV SCH ×2 (14:01→20:36)
[2023-03-06] MEDS: Pantoprazole VIAL 40 MG VIAL IV SCH (17:23)
[2023-03-07] MEDS: Lactated Ringers 1000 ml BAG 1,000 ML IV SCH ×2 (03:42→10:43)
[2023-03-07] MEDS: HYDROmorphone 0.5 MG/0.5 ML SYRINGE IV SLOW PU PRN ×5 (03:44→21:01)
[2023-03-07] MEDS: Ondansetron 4 mg VIAL 2 MG/ML 2 ml VIAL IV PRN (03:49)
[2023-03-07 06:39] LABS: Calcium 8.8 mg/dL (8.6-10.3); Creatinine, Serum 1.07 mg/dL (0.51-0.95); Magnesium 1.8 mg/dL (1.9-2.7); Potassium 3.4 mmol/L (3.5-5.0); eGFR CKD-EPI 61.3 (>60)
[2023-03-07] MEDS: Enoxaparin 30 MG/0.3 ML SYR SUBCUT SCH (09:36)
[2023-03-07] MEDS: Triamterene/HCTZ 75/50 mg 1 TAB PO SCH (09:36)
[2023-03-07] MEDS ORDERED: Magnesium Sulfate IV 1GM/100ML 1 GM/100 ML BAG IV ONE (11:23)
[2023-03-07] MEDS ORDERED: KCL 10 MEQ/50 ML IVPREMIX 10 MEQ/50 ML BAG IV ONE (11:23)
[2023-03-07] MEDS: Pantoprazole VIAL 40 MG VIAL IV SCH (15:54)
[2023-03-07] MEDS ORDERED: Polyethylene Glycol 3350 17 GM PACKET PO PRN (20:54)
[2023-03-07] MEDS ORDERED: Senna TAB 8.6 mg TAB PO PRN (20:54)
[2023-03-08] MEDS: HYDROmorphone 0.5 MG/0.5 ML SYRINGE IV SLOW PU PRN ×3 (05:48→16:00)
[2023-03-08] MEDS: Acetaminophen IV 1 GM/100ML 1,000 MG/100 ML BAG IV PRN ×2 (06:38→17:52)
[2023-03-08] MEDS: Enoxaparin 30 MG/0.3 ML SYR SUBCUT SCH (07:17)
[2023-03-08] MEDS: Triamterene/HCTZ 75/50 mg 1 TAB PO SCH (07:19)
[2023-03-08 08:27] LABS: Calcium 9.2 mg/dL (8.6-10.3); Creatinine, Serum 1.09 mg/dL (0.51-0.95); Magnesium 1.2 mg/dL (1.9-2.7); Potassium 4.1 mmol/L (3.5-5.0)
[2023-03-08] MEDS ORDERED: Magnesium Sulf 4 GM/100 ML IV 4,000 MG/100 ML BAG IVPB ONE (09:46)
[2023-03-08] MEDS: Pantoprazole VIAL 40 MG VIAL IV SCH (15:36)
[2023-03-09] MEDS: HYDROmorphone 0.5 MG/0.5 ML SYRINGE IV SLOW PU PRN (06:33)
[2023-03-09 07:08] LABS: Calcium 9.4 mg/dL (8.6-10.3); Creatinine, Serum 1.18 mg/dL (0.51-0.95); Magnesium 1.8 mg/dL (1.9-2.7); Potassium 3.6 mmol/L (3.5-5.0); eGFR CKD-EPI 54.5 (>60)
[2023-03-09] MEDS: Triamterene/HCTZ 75/50 mg 1 TAB PO SCH (08:26)
[2023-03-09] MEDS: Enoxaparin 30 MG/0.3 ML SYR SUBCUT SCH (08:27)
[2023-03-09 09:53] VITALS: BP 117/76
[2023-03-09] MEDS: Acetaminophen IV 1 GM/100ML 1,000 MG/100 ML BAG IV PRN (10:10)
== END 2023-03-09 12:30 | disposition home or self-care (01) | DRG 241 ==
LOC: EDHOLD 15:38 → ED 15:38 → SUATTDRO 03-05 03:41 → MED 03-05 06:18
PROVIDERS: ADMIT Internal Medicine; ATTEND Internal Medicine
PROC: O.GIEGD (2023-03-05 15:35)